=== PATIENT | female | born 1950 | race Caucasian/White ===

== ENCOUNTER 2019-03-29 09:58 | Outpatient (CLI) | payer MEDICARE, OTHER, SELFPAY ==
--- NOTE | ~2019-03-29 | US_ITS ---
EXAMINATION: US breast cyst asp LT DATE: 03/29/2019 11:22 INDICATION: Patient with a history of bilateral mastectomy with implant reconstruction in 2004 for ri ght breast cancer. Patient reports three implant surgeries with history of textured implants. Recent MRI showed fluid surrounding the left breast implant. TECHNIQUE: The procedure and its risks and benefits were discussed with the patient. Potential risks discussed included bleeding and infection. The skin was prepared and draped in sterile fashion. 1% li docaine was used for local anesthesia. Under ultrasound guidance a 19-gauge needle was guided into th e fluid surrounding the left breast implant at the 3:00 location in the 6:00 location. Fluid was aspi rated into three 10 cc syringes and a 50 cc syringe. Total volume of aspirated fluid was 70 cc. There were no immediate complications. FINDINGS: Ultrasound images demonstrate fluid around the breast implant and the needle within the fluid. IMPRESSION: 1. Successful ultrasound-guided paracentesis yielding 70 mL of brown and red fluid. Reviewed, dictated and finalized at location A. [employer] COMM[employer]IONER IMPRESSION: 1. Successful ultrasound-guided paracentesis yielding 70 mL of brown and red fl uid.
== END 2019-03-29 09:59 | disposition home or self-care (01) ==
PROVIDERS: PCP Internal Medicine; Visit Provider Surgery Plastic and Reconstructive Surgery
DX: N64.89 Other specified disorders of breast (principal)
CPT/HCPCS: 19000; 87070; 87075; 87102; 87205; 87206; 88104; 88108; 88184; 88185; 88305

== ENCOUNTER 2019-05-04 14:32 | Outpatient (CLI) | payer MEDICARE, OTHER, SELFPAY ==
--- NOTE | 2019-05-04 14:36 | ECG_ITS ---
Measurements Intervals [place] Rate: 84 P: 43 CA: 171 QRS: -34 QRSD: 138 T: 29 QT: 383 QTc: 453 Interpretive Statements SINUS RHYTHM LEFT AXIS DEVIATION RIGHT BUNDLE BRANCH BLOCK BASELINE ARTIFACT- I, II, III, AVR, AVL, AVF, V1-V6 ABNORMAL ECG Electronically Signed On 05-04-2019 15:08:34 [employer]TER by Adam Chan D.O.
== END 2019-05-04 14:33 | disposition home or self-care (01) ==
PROVIDERS: PCP Internal Medicine; Visit Provider Surgery Plastic and Reconstructive Surgery
DX: Z01.810 Encounter for preprocedural cardiovascular examination (principal); I10 Essential (primary) hypertension; R94.31 Abnormal electrocardiogram [ECG] [EKG]; Z96.652 Presence of left artificial knee joint
CPT/HCPCS: 93005

== ENCOUNTER 2019-05-15 00:59 | Day surgery (SDC) | payer MEDICARE, OTHER, SELFPAY ==
[2019-05-03 09:11] VITALS: BMI 22.3
[2019-05-15] VITALS (8 sets, daily range): BP systolic 114–143; BP diastolic 70–93; PULSE 91–110; RESP 11–19; TEMP 36.1–37.1; O2SAT 92–100
[2019-05-15] MEDS: LACTATED RINGERS 1,000 ML 30 ML IV CONT ×2 (09:30→12:45)
--- NOTE | 2019-05-15 09:36 | WPDHPUPDATE1 ---
History and Physical Update Update Date/Time: 05/15/19 09:36 History and Physical has been reviewed, including an updated exam of the patient. There are NO changes in the patient's condition. Risks, benefits, and alternatives have been discussed and questions answered. Patient agrees to proceed with procedure.
--- NOTE | 2019-05-15 09:52 | P.PNAN_ITS ---
Anes - Initial Pre Proc Eval Procedure: Operation Date: 05/15/19 13:00 Proposed Procedures p Bilateral Breast Implant Exchange With Aloderm, Bilateral Lateral Breast Revision - David Becerra MD Date/Time: 05/15/19 09:52 Surgeon: David Becerra MD Pre Op Diagnosis: Acquired Breast Deformity Patient Data Age: 69 Gender: F Height: 5 ft 4 in Weight: 58.97 kg Allergies Allergy/AdvReac Type Severity Reaction Status Date / Time No Known Allergies Allergy Verified 05/15/19 09:17 Home Medications Medication Instructions Recorded Confirmed Type gabapentin 300 mg capsule 300 mg PO TID #270 cap 03/06/19 05/15/19 Rx lisinopril 10 mg tablet 10 mg PO HS 03/07/19 05/15/19 History ospemifene [Osphena] 60 mg PO DAILY 05/03/19 05/15/19 History sertraline 50 mg PO HS 05/03/19 05/15/19 History cholecalciferol (vitamin D3) 10 mcg PO BID 05/15/19 05/15/19 History [Vitamin D3] glucosamine sulfate [Glucosamine] 500 mg PO BID 05/15/19 05/15/19 History omega 1-ilt-lwy-fish oil [Fish Oil] 1 cap PO DAILY 05/15/19 05/15/19 History vitamin M-wafqedpqxvua-fklopbb 1 tablet PO DAILY 05/15/19 05/15/19 History [Emergen-C] Patient hx anesthesia problems: none Family hx anesthesia problems: none PMFSH Social History Social History Smoking status: Never smoker Second hand tobacco smoke exposure: No Alcohol intake: current Gender identity (if verbalized by the patient): Female Anes - Eval Final PreProcedure Day of Procedure 05/15/19 09:52 Patient weight: normal Heart: regular rate and rhythm Lungs: clear to auscultation Airway: Mallampati scale class II Neurological: alert and oriented Last oral intake: >/= 8 hours ASA classification: III Emergent: no Anesthetic plan: proceed Anesthesia type and monitoring: general LMA and standard monitoring Informed Consent: The patient's anesthetic plan and its attendant risks and benefits were discussed with the patient/family/POA. Questions were solicited and answers provided to the satisfaction of the patient/family/POA.
[2019-05-15] MEDS: ceFAZolin 2 GM/D5W 50 ML 2 GM/50 ML BAG IVPB (10:13)
[2019-05-15] MEDS: LIDO 1%/EPINEPHRINE 1:100,000 20 ML VIAL 80 ML INFILTRATE (10:44)
--- NOTE | 2019-05-15 12:50 | PM.PROC ---
Procedure Note - Detailed Date of procedure: 05/15/19 Pre-op diagnosis: Acquired Breast Deformity History breast cancer Post-op diagnosis: same Procedure performed: 1. Right intact breast implant removal 2. Left breast implant material removal 3. Bilateral capsulectomy 4. Bilateral lateral breast scar revision measuring 11 cm per side (22cm total) 5. Z plasty bilateral lateral breast (4x4cm per side 16cm2) 32cm2 total Description of procedure: Preoperatively we spent extensive time discussing the risks, benefits, alternatives. I want her to be very realistic about the risks involved as well as expectations. Reviewed her goals making sure in full agreement. Answered all of her questions to her satisfaction including realistic expectations of outcome. Consent obtained. She was marked in the preoperative holding area. I explained everything we are doing at that time as well. She was taken to the operating room placed supine on operating room table. Anesthesia was provided by anesthesiology and prepped and draped in a standard fashion. Surgical time-out was taken. 1% lidocaine and 0.25% Marcaine with epinephrine was used to provide a field block. Fifteen blade used to make an incision at the previous scar excising the scar. Dissection was continued down to the capsule wall was identified and elevated removing the majority of this capsule. This was a submuscular augmentation the posterior capsule was adherent to the chest wall so this was cauterized and not removed. The right implant was intact the left implant was ruptured. The left breast had significant seroma intracapsular and I did send this to pathology around 70 cc. I then copiously irrigated with 3 L of saline on TUR tubing and verified strict hemostasis. Bilateral breast had good muscle coverage as such I did not use AlloDerm. Ten blade was used to excise the lateral chest wall tissue along the lateral breast as determined preoperatively in the dimensions as above. Fifteen Rishi drains were placed and sutured into place with 3-0 silk at the lateral/posterior aspect of the revision laterally. I then closed laterally with 2-0 Vicryl followed by 3-0 strata fix. At the lateral aspect of the breast this was going to create a band and as such I created Z-plasties bilateral breast lateral aspect. I irrigated with triple antibiotic and Betadine containing solution. Wash clothes. Induce the implant into the pocket closed using 2-0 Vicryl followed by 3-0 strata fix and the entire incision was closed using running subcuticular 4-0 Monocryl followed by tissue glue. Fluffs and a surgical bra were placed. She tolerated procedure well. Woken taken the PACU without difficulty. All instrument sponge counts were correct at the end of the case. Anesthesia: GLMA Surgeon: David Becerra MD Estimated blood loss (mL): 30 Drains: Yes (Bilateral 15 Rishi) Packing: No Pathology: yes (Bilateral breast capsular, tissue, and left breast seroma.) Complications: No immediate complications Condition: stable Disposition: PACU Findings: Implants: Right: REF# [id number] SN [id number] Left: REF# [id number] SN [id number] Left breast seroma Left breast ruptured implant
== END 2019-05-15 15:13 | disposition home or self-care (01) ==
PROVIDERS: PCP Internal Medicine; Visit Provider Surgery Plastic and Reconstructive Surgery
PROC: (CPT 19371; principal; 2019-05-15 13:00)
DX: T85.41XA Breakdown (mechanical) of breast prosthesis and implant, initial encounter (principal); N64.89 Other specified disorders of breast; Y83.8 Other surgical procedures as the cause of abnormal reaction of the patient, or of later complication, without mention of misadventure at the time of the procedure; Z85.3 Personal history of malignant neoplasm of breast; Z90.13 Acquired absence of bilateral breasts and nipples; I10 Essential (primary) hypertension; L82.1 Other seborrheic keratosis
CPT/HCPCS: 19371; 19380; 88104; 88108; 88304; 88305; A9270; J0131; J0690; J1100; J1580; J2405; J2704; J3010; J7120

== ENCOUNTER 2019-08-02 14:54 | Outpatient (CLI) | payer MEDICARE, OTHER, SELFPAY ==
--- NOTE | ~2019-08-02 | US_ITS ---
EXAMINATION: US pelvic complete w TV DATE: 08/02/2019 15:44 INDICATION: Adnexal cyst TECHNIQUE: Multiple transabdominal and endovaginal sonographic images of the pelvis were obtained. COMPARISON: None. FINDINGS: The uterus measures 8.5 x 3.4 x 3.4 cm. The endometrial complex measures is thickened and heterogene ous 19 mm with a few small internal cystic regions. The right ovary measures 6.1 x 2.4 x 3.3 cm. The left ovary measures 6.6 x 4.6 x 5.8 cm. Anechoic fluid-filled dilated serpiginous tubular structures at both the left and right adnexal regions most consistent with hydrosalpinx. There is no free fluid in the pelvis. IMPRESSION: 1. Thickened heterogeneous endometrial complex which abnormal for age and given history of bleeding r aises concern for malignancy. Recommend hysteroscopy and biopsy. 2. Bilateral hydrosalpinx. Reviewed, dictated and finalized at location A. IMPRESSION: 1. Thickened heterogeneous endometrial complex which abnormal for age and given history of bleeding raises concern for malignancy. Recommend hysteroscopy and biopsy. 2. Bilateral hydrosalpinx.
== END 2019-08-02 14:55 | disposition home or self-care (01) ==
PROVIDERS: PCP Internal Medicine; Visit Provider Obstetrics & Gynecology Gynecology
DX: N83.201 Unspecified ovarian cyst, right side (principal); N83.202 Unspecified ovarian cyst, left side; R93.89 Abnormal findings on diagnostic imaging of other specified body structures; N70.11 Chronic salpingitis
CPT/HCPCS: 76830; 76856

== ENCOUNTER 2019-08-17 00:46 | Outpatient (CLI) | payer MEDICARE, OTHER, SELFPAY ==
[2019-08-17 17:53] LABS: SARS-CoV-2 RNA PCR Negative
== END 2019-08-17 00:47 | disposition home or self-care (01) ==
LOC: ANHCOVIDDT 00:46
PROVIDERS: PCP Internal Medicine; Visit Provider Obstetrics & Gynecology Gynecology
DX: Z01.818 Encounter for other preprocedural examination (principal); Z11.59 Encounter for screening for other viral diseases
CPT/HCPCS: 87635; C9803; U0003

== ENCOUNTER 2019-08-20 02:38 | Day surgery (SDC) | payer MEDICARE, OTHER, SELFPAY ==
[2019-08-14 12:44] VITALS: BMI 22.3
--- NOTE | 2019-08-20 07:20 | P.HP_ITS ---
History of Present Illness History of Present Illness Consent: Risks, benefits, and alternatives have been discussed and questions answered. Patient agrees to proceed with procedure. Chief complaint: Postmenopausal Bleeding Narrative: Leah Sheehan is a 69 year old female with postmenopausal bleeding and thickened endometrium at 19 mm. Attempted to do office hysteroscopy but unable to enter the cavity. Patient given 5 days cytotec preop for this procedure. Risks of infection, bleeding, and perforation were discussed. Possible inability to enter cavity also reviewed. Possible pathology discussed with patient. She voices understanding and agrees to proceed. [facility] Social History Social History Smoking status: Never smoker Second hand tobacco smoke exposure: No Alcohol intake: current Gender identity (if verbalized by the patient): Female Meds Home Medications and Allergies Home Medications Medication Instructions Recorded Confirmed Type gabapentin 300 mg capsule 300 mg PO TID #270 cap 03/06/19 08/14/19 Rx lisinopril 10 mg tablet 10 mg PO HS 03/07/19 08/14/19 History Osphena 60 mg PO DAILY 05/03/19 08/14/19 History sertraline 50 mg PO HS 05/03/19 08/14/19 History cholecalciferol (vitamin D3) 10 mcg PO BID 05/15/19 08/14/19 History [Vitamin D3] glucosamine sulfate [Glucosamine] 500 mg PO BID 05/15/19 08/14/19 History omega 8-eds-yjt-fish oil [Fish Oil] 1 cap PO DAILY 05/15/19 08/14/19 History ascorbic acid (vitamin C) 1 g PO DAILY 08/14/19 08/14/19 History Allergies Allergy/AdvReac Type Severity Reaction Status Date / Time No Known Allergies Allergy Verified 08/14/19 12:41 Exam Const: General: healthy appearing and alert Orientation/consciousness: patient oriented x3 Resp: Effort & Inspection: normal respiratory effort Auscultation: clear to auscultation bilaterally Cardio: Rate: regular rate Rhythm: regular rhythm GI: GI Palp: Yes Soft to palpation, No Tenderness to palpation present (GI) and No Palpable mass present : External Female Exam: normal external appearance Speculum Exam - Vagina: normal appearance of the vagina and normal vaginal discharge Speculum Exam - Cervix: normal appearance of the cervix Bimanual exam- vagina & uterus: uterine size normal and consistency normal Bimanual Exam- Adnexa, other: normal adnexae and No adnexal tenderness Neuro: General: patient oriented x3 Assessment and Plan Assessment and plan (1) Post-menopausal bleeding: Code(s): N95.0 - Postmenopausal bleeding Status: Acute Assessment and Plan: Plan to proceed with hysteroscopy with D&C
[2019-08-20 07:53] VITALS: BP 156/90; PULSE 97; RESP 20; TEMP 37.1; O2SAT 97
--- NOTE | 2019-08-20 08:19 | P.PNAN_ITS ---
Anes - Initial Pre Proc Eval Procedure: Operation Date: 08/20/19 09:30 Proposed Procedures p Hysteroscopy, Dilation and Curettage - Lanie Espinal MD Date/Time: 08/20/19 08:19 Surgeon: Lanie Espinal MD Pre Op Diagnosis: Postmenopausal Bleeding Patient Data Age: 69 Gender: F Height: 1.63 m Weight: 58.97 kg Last Vital Signs Temp 37.1 C 08/20/19 07:53 Pulse 97 08/20/19 07:53 Resp 20 08/20/19 07:53 BP 156/90 H 08/20/19 07:53 Pulse Ox 97 08/20/19 07:53 Allergies Allergy/AdvReac Type Severity Reaction Status Date / Time No Known Allergies Allergy Verified 08/20/19 07:40 Home Medications Medication Instructions Recorded Confirmed Type gabapentin 300 mg capsule 300 mg PO TID #270 cap 03/06/19 08/14/19 Rx lisinopril 10 mg tablet 10 mg PO HS 03/07/19 08/14/19 History Osphena 60 mg PO DAILY 05/03/19 08/14/19 History sertraline 50 mg PO HS 05/03/19 08/14/19 History cholecalciferol (vitamin D3) 10 mcg PO BID 05/15/19 08/14/19 History [Vitamin D3] glucosamine sulfate [Glucosamine] 500 mg PO BID 05/15/19 08/14/19 History omega 9-vjx-elr-fish oil [Fish Oil] 1 cap PO DAILY 05/15/19 08/14/19 History ascorbic acid (vitamin C) 1 g PO DAILY 08/14/19 08/14/19 History Patient hx anesthesia problems: none Family hx anesthesia problems: none [facility] Social History Social History Smoking status: Never smoker Second hand tobacco smoke exposure: No Alcohol intake: current Gender identity (if verbalized by the patient): Female Anes - Eval Final PreProcedure Day of Procedure 08/20/19 08:19 Patient weight: normal Heart: regular rate and rhythm Lungs: clear to auscultation and normal air movement Airway: Mallampati scale class II Neurological: alert and oriented Last oral intake: >/= 8 hours ASA classification: III Emergent: no Anesthetic plan: proceed Anesthesia type and monitoring: general GIVS Informed Consent: The patient's anesthetic plan and its attendant risks and b enefits were discussed with the patient/family/POA. Questions were solicited and answers provided to the satisfaction of the patient/family/POA.
[2019-08-20] MEDS: LACTATED RINGERS 1,000 ML 30 ML IV CONT (08:27)
--- NOTE | 2019-08-20 08:28 | SUR.PREOP ---
family update provided
--- NOTE | 2019-08-20 09:03 | PM.OP ---
Procedure Note - Brief Procedure Note - Brief Date of procedure: 08/20/19 Pre-op diagnosis: Postmenopausal Bleeding Post-op diagnosis: same Procedure performed: D&C hysteroscopy with myosure resection of large polyp Anesthesia: MAC and local Surgeon: Lanie Espinal MD Estimated blood loss (mL): 5 Drains: No Packing: No Pathology: yes (endometrial curettings and shavings) Complications: No immediate complications Condition: stable Disposition: PACU Findings: Uterus sounds to 8 cm; very large polyp with base at right fundus and coming into the cervical canal; remainder of endometrium appears atrophic
[2019-08-20 09:04] VITALS: BP 118/80; PULSE 96; RESP 20; O2SAT 99
[2019-08-20 09:34] VITALS: BP 138/85; PULSE 90; RESP 20
[2019-08-20 10:00] VITALS: BP 135/79; PULSE 92; RESP 20
--- NOTE | 2019-08-20 12:44 | OP_ITS ---
DATE OF PROCEDURE: 08/20/2019 PREOPERATIVE DIAGNOSIS: Postmenopausal bleeding with thickened endometrial lining. POSTOPERATIVE DIAGNOSIS: Postmenopausal bleeding with thickened endometrial lining. PROCEDURE: D and C, hysteroscopy with MyoSure resection of endometrial polyp. ESTIMATED BLOOD LOSS: 5 cc. PATHOLOGY: Endometrial shavings and curettings. DESCRIPTION OF PROCEDURE: The patient was taken to the operating room, placed under anesthesia in the dorsal lithotomy position. She was prepped and draped in the usual sterile fashion. Bivalved speculum was placed in the vagina. Cervix was grasped on the anterior lip with a tenaculum and injected with 1% lidocaine. The os Finders were used to enter the endometrial cavity. The cervix was then serially dilated with Hegar. The uterus was sounded to 8 cm. The diagnostic hysteroscope was placed. The polyp was noted to be attached at the left fundus and is very large coming down into the mid portion of the cervix and filling the majority of the cavity. The mesher device was opened and placed. Under direct visualization, the polyp was removed in its entirety. The remainder of the endometrium appears grossly atrophic. The hysteroscope was removed. The medium sharp curette was used to sharply curette the endometrium until a good uterine cry was noted in all areas. Minimal material was obtained, consistent with the atrophic appearance. All instruments were removed. The patient was awakened from anesthesia and taken to Recovery in stable condition. Lambert I MT: Cally
== END 2019-08-20 10:05 | disposition home or self-care (01) ==
PROVIDERS: PCP Internal Medicine; Visit Provider Obstetrics & Gynecology Gynecology
PROC: 0U5B8ZZ Destruction of Endometrium, Via Natural or Artificial Opening Endoscopic (ICD-10-PCS; CPT 58563; principal; 2019-08-20 09:30)
DX: N95.0 Postmenopausal bleeding (principal); N84.0 Polyp of corpus uteri
CPT/HCPCS: 58558; 88305; A9270; J0131; J1100; J2250; J2405; J2704; J3010; J7030; J7120

== ENCOUNTER 2019-11-22 09:24 | Outpatient (CLI) | payer MEDICARE, OTHER, SELFPAY ==
[2019-11-22 09:48] LABS: Basophils Percent Auto 0.7 % (0.2-1.2); Eosinophils Absolute Auto 0.2 K/mm3 (0-0.3); Hematocrit 41.8 % (37.0-47.0); Hemoglobin 13.7 g/dL (12.0-15.0); Immature Granulocyte Absolute 0.01 K/mm3 (0.00-0.031); Immature Granulocyte Percent A 0.2 % (0-0.5); Lymphocytes Absolute Auto 2.68 K/mm3 (0.9-3.2); Lymphocytes Percent Auto 45.3 % (18.3-44.2); Mean Corpuscular HGB Conc 32.8 g/dl (32-36); Mean Corpuscular Hemoglobin 33.1 pg (26-34); Mean Platelet Volume 8.9 fl (7.4-10.4); Monocytes Absolute Auto 0.6 K/mm3 (0.1-0.6); Monocytes Percent Auto 9.5 % (2.6-8.5); Neutrophils Absolute Auto 2.5 K/mm3 (1.3-6.7); Neutrophils Percent Auto 41.3 % (45.5-73.1); Platelet Count Result 257 k/mm3 (150-375); Red Blood Count 4.14 M/mm3 (4.2-5.4); Red Cell Distribution Width 13.3 % (11.5-14.5); White Blood Count 5.9 K/mm3 (4.5-10.0)
[2019-11-22 10:11] LABS: LDL Cholesterol Direct 93 mg/dL
[2019-11-22 10:22] LABS: Alanine Aminotransferase 60 U/L (4-35); Albumin Level 4.2 g/dL (3.5-5.1); Alkaline Phosphatase 95 U/L (38-126); Anion Gap 7 mmol/L (8-16); Aspartate Amino Transferase 76 U/L (14-36); Bilirubin,Total 0.6 mg/dL (0.2-1.3); Blood Urea Nitrogen 14 mg/dL (7-17); Calcium 9.9 mg/dL (8.4-10.2); Carbon Dioxide 29 mmol/L (22-30); Chloride 99 mmol/L (98-107); Cholesterol 223 mg/dL (0-200); Estimated Glomerular Filt Rate > 60; Glucose 100 mg/dL (65-105); HDL Direct 110 mg/dL; Potassium 4.5 mmol/L (3.4-5.0); Sodium 135 mmol/L (137-145); Triglycerides 102 mg/dL (<150)
[2019-11-22 11:07] LABS: Vitamin D 25 Hydroxy 30.5 ng/mL
== END 2019-11-22 09:25 | disposition home or self-care (01) ==
LOC: ANHLAB 09:28
PROVIDERS: PCP Internal Medicine; Visit Provider Nurse Practitioner
DX: E78.5 Hyperlipidemia, unspecified (principal); I10 Essential (primary) hypertension; E55.9 Vitamin D deficiency, unspecified
CPT/HCPCS: 36415; 80053; 80061; 82306; 85025

== ENCOUNTER 2019-12-14 08:22 | Outpatient (CLI) | payer MEDICARE, OTHER, SELFPAY ==
[2019-12-14 08:50] LABS: Alanine Aminotransferase 50 U/L (4-35); Aspartate Amino Transferase 60 U/L (14-36)
== END 2019-12-14 08:23 | disposition home or self-care (01) ==
PROVIDERS: PCP Internal Medicine; Visit Provider Nurse Practitioner
DX: R74.8 Abnormal levels of other serum enzymes (principal)
CPT/HCPCS: 36415; 84450; 84460

== ENCOUNTER 2019-12-20 09:40 | Outpatient (CLI) | payer MEDICARE, OTHER, SELFPAY ==
--- NOTE | ~2019-12-20 | US_ITS ---
EXAMINATION: US right upper quadrant DATE: 12/20/2019 10:58 INDICATION: Abnormal levels of other serum enzymes. TECHNIQUE: Multiple grayscale and Doppler ultrasound images of the abdomen were obtained. COMPARISON: None FINDINGS: The visualized portions of the head, body, and tail the pancreas are normal. The liver is n ormal without focal lesion. No liver surface nodularity. There is normal flow in main portal vein. Th e gallbladder is normal in size. No gallstones or gallbladder wall thickening. There was no sonograph ic Nair sign. The common duct is normal and measures 7 mm. IMPRESSION: 1. Normal right upper quadrant ultrasound. Reviewed, dictated and finalized at location A.
== END 2019-12-20 09:41 | disposition home or self-care (01) ==
PROVIDERS: PCP Internal Medicine; Visit Provider Nurse Practitioner
DX: R74.8 Abnormal levels of other serum enzymes (principal)
CPT/HCPCS: 76705

== ENCOUNTER 2019-12-27 09:35 | Outpatient (CLI) | payer MEDICARE, OTHER, SELFPAY ==
[2019-12-27 10:48] LABS: Iron 96 ug/dL (37-170)
[2019-12-27 10:50] LABS: Thyroid Stimulating Hormone 0.709 uIU/mL (0.465-4.680)
[2019-12-27 10:58] LABS: Percent Iron Saturation 22 % (20-50)
[2019-12-27 10:59] LABS: HIV 1/2 Ab P24 Ag Result Negative (Negative)
[2019-12-27 11:20] LABS: Hepatitis B Surface Antigen Negative (Negative)
[2019-12-27 11:38] LABS: Hepatitis C Virus Antibody Negative (Negative)
[2020-01-02 13:22] LABS: Gliadin AB, IgG 3 Units (<20); Reticulin IgA Negative (Negative); TTG IGA AB 1 U/mL (<4)
== END 2019-12-27 09:36 | disposition home or self-care (01) ==
PROVIDERS: PCP Internal Medicine; Visit Provider Nurse Practitioner
DX: R74.8 Abnormal levels of other serum enzymes (principal); I10 Essential (primary) hypertension
CPT/HCPCS: 36415; 83516; 83540; 83550; 84443; 86255; 86703; 86803; 87340; G0432

== ENCOUNTER 2022-02-05 15:25 | Outpatient (CLI) | payer MEDICARE, OTHER, SELFPAY ==
[2022-02-05 19:03] LABS: Alanine Aminotransferase 27 U/L (6-35); Albumin Level 4.3 g/dL (3.5-5.1); Alkaline Phosphatase 68 U/L (38-126); Anion Gap 5 mmol/L (8-16); Aspartate Amino Transferase 47 U/L (14-36); Bilirubin,Total 0.5 mg/dL (0.2-1.3); Blood Urea Nitrogen 14 mg/dL (7-17); Calcium 9.9 mg/dL (8.4-10.2); Carbon Dioxide 32 mmol/L (22-30); Chloride 95 mmol/L (98-107); Cholesterol 243 mg/dL (0-200); Estimated Glomerular Filt Rate > 60; Glucose 90 mg/dL (65-110); HDL Direct 88 mg/dL; Potassium 4.1 mmol/L (3.4-5.0); Sodium 132 mmol/L (137-145); Triglycerides 107 mg/dL (<150)
[2022-02-05 19:11] LABS: Basophils Percent Auto 0.3 % (0.2-1.2); Eosinophils Absolute Auto 0.1 K/mm3 (0-0.3); Eosinophils Percent Auto 1.6 % (0-4.4); Hematocrit 41.2 % (37.0-47.0); Hemoglobin 13.5 g/dL (12.0-15.0); Immature Granulocyte Absolute 0.01 K/mm3 (0.00-0.031); Immature Granulocyte Percent A 0.1 % (0-0.5); Lymphocytes Absolute Auto 3.65 K/mm3 (0.9-3.2); Lymphocytes Percent Auto 49.7 % (18.3-44.2); Mean Corpuscular HGB Conc 32.8 g/dl (32-36); Mean Corpuscular Hemoglobin 31.6 pg (26-34); Mean Corpuscular Volume 96.5 fl (80-100); Mean Platelet Volume 8.9 fl (7.4-10.4); Monocytes Absolute Auto 0.6 K/mm3 (0.1-0.6); Neutrophils Percent Auto 40.3 % (45.5-73.1); Platelet Count Result 425 k/mm3 (150-375); Red Blood Count 4.27 M/mm3 (4.2-5.4); Red Cell Distribution Width 12.4 % (11.5-14.5); White Blood Count 7.3 K/mm3 (4.5-10.0)
[2022-02-05 19:14] LABS: LDL Cholesterol Direct 108 mg/dL
[2022-02-05 19:25] LABS: Vitamin D 25 Hydroxy 38.7 ng/mL
== END 2022-02-05 15:26 | disposition home or self-care (01) ==
PROVIDERS: PCP Internal Medicine; Visit Provider Clinical Nurse Specialist
DX: N95.0 Postmenopausal bleeding (principal); Z13.228 Encounter for screening for other metabolic disorders; E55.9 Vitamin D deficiency, unspecified; I10 Essential (primary) hypertension; E78.2 Mixed hyperlipidemia
CPT/HCPCS: 36415; 80053; 80061; 82306; 84443; 85025

== ENCOUNTER 2022-04-06 14:05 | Outpatient (CLI) | payer MEDICARE, OTHER, SELFPAY ==
--- NOTE | ~2022-04-06 | DEXA_ITS ---
Bone Density Report Name: EBONY HOLLAND Age: 71 Sex: Female Ethnicity: White Date of : 1950 Indication: postmenopausal; screening for osteoporosis; height loss; prior fracture; cancer; Referring Provider: YONATHAN WOODWARD Study: Bone densitometry was performed. Exam Date: April 06, 2022 Accession number: [id number] Bone Density: Region BMD T-score Z-score Classification AP Spine(L1, L2, L3) 1.128 1.0 3.2 Normal Femoral Neck (Left) 0.563 -2.6 -0.6 Osteoporosis Total Hip (Left) 0.776 -1.4 0.3 Osteopenia World Health Organization criteria for BMD impression classify patients as: Normal (T-score at or above -1.0), Osteopenia (T-score between -1.0 and -2.5), or Osteoporosis (T-score at or below -2.5). 10-year Fracture Risk: FRAX not reported because: Some T-score for Spine Total or Hip Total or Femoral Neck at or below -2.5 Prior hip or vertebral fracture Treated for osteoporosis Clinical Information Provided by Patient: Have had a previous hip or vertebral fracture Has had a low trauma fracture Is being treated for osteoporosis Has used the following medications: Prolia (i.e. denosumab), Vitamin D, Calcium Has the following medical conditions: Cancer Patient maximum height was 65.5 Menopause Age: 44 Onset of menses at age 14 Number of children 0 Impression: The patient has established osteoporosis, based on the Left Femoral Neck T-score and the existence of a prior fracture. The patient has risk factors, including: previous fracture. Discussion: It is important to ask patients whether they are taking their medications and to encourage continued and appropriate compliance with their osteoporosis therapies to reduce fracture risk. It is also important to review their risk factors and encourage appropriate calcium and vitamin D intakes, exercise, fall prevention and other lifestyle measures. Follow-Up: Consider a repeat BMD and Vertebral Fracture Assessment (VFA) exam in 2 years or sooner if medically necessary, to reassess this patient's status. Reported by: MAURICIO on 04/06/2022 2:51:00 PM. Reviewed, dictated and finalized at location A. GUERITA
== END 2022-04-06 14:06 | disposition home or self-care (01) ==
PROVIDERS: PCP Internal Medicine; Visit Provider Obstetrics & Gynecology Gynecology
DX: Z78.0 Asymptomatic menopausal state (principal); M81.0 Age-related osteoporosis without current pathological fracture; M85.852 Other specified disorders of bone density and structure, left thigh
CPT/HCPCS: 77080

== ENCOUNTER 2022-04-28 00:32 | Day surgery (SDC) | payer MEDICARE, OTHER, SELFPAY ==
[2022-03-02 14:48] VITALS: BMI 21.5
--- NOTE | 2022-03-12 14:12 | PC.NURSE ---
Spoke with patient and confirmed new date and time of procedure. Patient stated there has been no change in medical history or change in medications.
[2022-03-31 15:04] VITALS: BMI 21.5
--- NOTE | 2022-03-31 15:07 | PC.NURSE ---
Patient confirms no changes since last PAT call.
--- NOTE | 2022-04-27 17:07 | PM.HPGS ---
History of Present Illness History of Present Illness Consent: Risks, benefits, and alternatives have been discussed and questions answered. Patient agrees to proceed with procedure. Chief complaint: colitis Narrative: Leah Sheehan is a 71 year old female referred for investigation of a change in bowel habits. For the past year to she has had spells where she has a loose bowel movement every time she eats. His got to the point where she has to make sure bathroom is near when she is bleeding. She has been taking a probiotic and this has improved recently. Review of Systems Review of Systems: All systems reviewed & are unremarkable except as noted in HPI and below PMFSH Past Medical History Medical History Acquired breast deformity Allergies Blepharitis of both eyes Breast cancer Breast implant rupture Chest wall pain Depression History of breast cancer History of fracture Hyperlipidemia Hypertension Numbness in both legs Osteoarthritis Osteoporosis Raynauds syndrome Sexual dysfunction Shingles Surgical History Surgical History History of arthroplasty of left knee History of bilateral mastectomy History of bunionectomy History of left knee replacement History of right hip replacement Status post right foot surgery Family History Family History Sibling Depression Hypertension Patient's sister is in good health Patient's brother is in good health Family history of allergic disorder Family history of alcoholism Family history of malignant neoplasm of breast in first degree relative Patient's sister is Mother Asthma Patient's mother is in good health Family history of allergic disorder Father Cerebrovascular accident Grandparent Family history of malignant neoplasm of male breast Other Family history of arthritis Family history of malignant neoplasm Social History Social History Smoking status: Never smoker Second hand tobacco smoke exposure: No Alcohol intake: current Alcohol use details: occasional Substance use: never Substance use type: does not use Lack of Food: Never True Current Housing: I Have Housing Concerned About Future Housing: No Difficulty Paying Gas/Electric Bills: No Difficulty Paying for Meds: No Currently Unemployed: No Education: Bachelor's Degree Difficulty w/ Childcare or Family Care: No Living arrangements: with family Gender identity (if verbalized by the patient): Female Spiritual care concerns: No Meds Home Medications and Allergies Home Medications Medication Instructions Recorded Confirmed Type ospemifene 60 mg tablet (Osphena) 60 mg PO DAILY 05/03/19 04/12/22 History vitamin E 200 unit capsule 200 unit PO DAILY 11/29/19 04/12/22 History lisinopril 10 mg tablet 10 mg PO HS #90 tabs 04/07/21 04/12/22 Rx sertraline 50 mg tablet 50 mg PO HS #90 tabs 04/07/21 04/12/22 Rx cholecalciferol (vitamin D3) 125 125 mcg PO DAILY 02/11/22 04/12/22 History mcg (5,000 unit) capsule Adult Probiotic 1 tab-cap PO DAILY 03/02/22 04/12/22 History calcium carb-D3-mag ox-zinc ox 1 tab-cap PO DAILY 03/02/22 04/12/22 History denosumab 60 mg/mL subcutaneous 60 mg subcut [id number] 03/02/22 04/12/22 History syringe (Prolia) gabapentin 300 mg capsule 300 mg PO TID 03/02/22 04/12/22 History magnesium oxide 500 mg tablet 500 mg PO DAILY 03/02/22 04/12/22 History potassium 99 mg tablet 99 mg PO DAILY 03/02/22 04/12/22 History Allergies Allergy/AdvReac Type Severity Reaction Status Date / Time poison hayes extract Allergy Rash Verified 04/12/22 11:53 Sulfa (Sulfonamide Allergy Unknown Verified 04/12/22 11:53 Antibiotics) Exam Const: General: alert Orientation/consciousness: patient oriented x3 Resp:
[2022-04-28 08:55] VITALS: BP 138/88; PULSE 70; RESP 18; TEMP 36.6; O2SAT 100; BMI 21.9
[2022-04-28] MEDS: LACTATED RINGERS 1,000 ML 150 ML IV CONT (09:16)
--- NOTE | 2022-04-28 09:19 | WPDANESEPPF ---
Anes - Initial Pre Proc Eval Procedure: Operation Date: 04/28/22 10:15 Proposed Procedures p Colonoscopy - Pola Graves MD Date/Time: 04/28/22 09:19 Surgeon: Pola Graves MD Pre Op Diagnosis: colitis Patient Data Age: 71 Gender: F Height: 1.63 m Weight: 57.9 kg Last Vital Signs Temp 97.8 F 04/28/22 08:55 Pulse 70 04/28/22 08:55 Resp 18 04/28/22 08:55 BP 138/88 04/28/22 08:55 Pulse Ox 100 04/28/22 08:55 O2 Del Method Room Air 04/28/22 08:55 Allergies Allergy/AdvReac Type Severity Reaction Status Date / Time poison hayes extract Allergy Rash Verified 04/12/22 11:53 Sulfa (Sulfonamide Allergy Unknown Verified 04/12/22 11:53 Antibiotics) Home Medications Medication Instructions Recorded Confirmed Type ospemifene 60 mg tablet (Osphena) 60 mg PO DAILY 05/03/19 04/12/22 History vitamin E 200 unit capsule 200 unit PO DAILY 11/29/19 04/12/22 History lisinopril 10 mg tablet 10 mg PO HS #90 tabs 04/07/21 04/12/22 Rx sertraline 50 mg tablet 50 mg PO HS #90 tabs 04/07/21 04/12/22 Rx cholecalciferol (vitamin D3) 125 125 mcg PO DAILY 02/11/22 04/12/22 History mcg (5,000 unit) capsule Adult Probiotic 1 tab-cap PO DAILY 03/02/22 04/12/22 History calcium carb-D3-mag ox-zinc ox 1 tab-cap PO DAILY 03/02/22 04/12/22 History denosumab 60 mg/mL subcutaneous 60 mg subcut [id number] 03/02/22 04/12/22 History syringe (Prolia) gabapentin 300 mg capsule 300 mg PO TID 03/02/22 04/12/22 History magnesium oxide 500 mg tablet 500 mg PO DAILY 03/02/22 04/12/22 History potassium 99 mg tablet 99 mg PO DAILY 03/02/22 04/12/22 History Patient hx anesthesia problems: none Family hx anesthesia problems: none Results Review: All pre-operative results and documents have been reviewed as part of the pre-operative evaluation. PMFSH Past Medical History Medical History Acquired breast deformity Allergies Blepharitis of both eyes Breast cancer Breast implant rupture Chest wall pain Depression History of breast cancer History of fracture Hyperlipidemia Hypertension Numbness in both legs Osteoarthritis Osteoporosis Raynauds syndrome Sexual dysfunction Shingles Surgical History Surgical History History of arthroplasty of left knee History of bilateral mastectomy History of bunionectomy History of left knee replacement History of right hip replacement Status post right foot surgery Family History Family History Sibling Depression Hypertension Patient's sister is in good health Patient's brother is in good health Family history of allergic disorder Family history of alcoholism Family history of malignant neoplasm of breast in first degree relative Patient's sister is Mother Asthma Patient's mother is in good health Family history of allergic disorder Father Cerebrovascular accident Grandparent Family history of malignant neoplasm of male breast Other Family history of arthritis Family history of malignant neoplasm Social History Social History Smoking status: Never smoker Second hand tobacco smoke exposure: No Alcohol intake: current Alcohol use details: occasional Substance use: never Substance use type: does not use Lack of Food: Never True Current Housing: I Have Housing Concerned About Future Housing: No Difficulty Paying Gas/Electric Bills: No Difficulty Paying for Meds: No Currently Unemployed: No Education: Bachelor's Degree Difficulty w/ Childcare or Family Care: No Living arrangements: with family Gender identity (if verbalized by the patient): Female Spiritual care concerns: No Anes - Eval Final PreProcedure Day of Procedure 04/28/22 09:19 Patient weight: normal Heart: regular rate a
[2022-04-28] MEDS: SIMETHICONE ORAL SUSPENSION 20 MG/0.3 ML 30 ML BOTTLE 0.6 ML IRRIGATION (09:47)
[2022-04-28 09:53] VITALS: BP 132/76; PULSE 79; RESP 11; O2SAT 100
[2022-04-28 10:03] VITALS: BP 127/87; PULSE 79; RESP 22; O2SAT 100
[2022-04-28 10:13] VITALS: BP 167/105; PULSE 69; RESP 19; O2SAT 100
--- NOTE | 2022-04-28 10:19 | SUR.PHASEII ---
Spoke with Dr. Finney about the patient's blood pressure. Last blood pressure was 167/105. The patient did not take blood pressure medications before procedure. Dr. Finney okay with patient being discharged and taking blood pressure medications at home.
== END 2022-04-28 10:29 | disposition home or self-care (01) ==
PROVIDERS: PCP Internal Medicine; Visit Provider Internal Medicine Gastroenterology
PROC: 0DJD8ZZ Inspection of Lower Intestinal Tract, Via Natural or Artificial Opening Endoscopic (ICD-10-PCS; CPT 45378; principal; 2022-04-28 10:15)
DX: R19.7 Diarrhea, unspecified (principal); K57.30 Diverticulosis of large intestine without perforation or abscess without bleeding; I10 Essential (primary) hypertension; E78.5 Hyperlipidemia, unspecified; F32.A Depression, unspecified; I73.00 Raynaud's syndrome without gangrene; M81.0 Age-related osteoporosis without current pathological fracture; Z85.3 Personal history of malignant neoplasm of breast
CPT/HCPCS: 45380; 88305; J2704; J7120

== ENCOUNTER 2023-02-02 13:53 | Outpatient (CLI) | payer MEDICARE, OTHER, SELFPAY ==
[2023-02-02 19:09] LABS: Basophils Absolute Auto 0.1 K/mm3 (0.0-0.1); Basophils Percent Auto 0.6 % (0.2-1.2); Eosinophils Absolute Auto 0.2 K/mm3 (0-0.3); Eosinophils Percent Auto 2.2 % (0-4.4); Hematocrit 43.3 % (37.0-47.0); Hemoglobin 14.2 g/dL (12.0-15.0); Immature Granulocyte Absolute 0.02 K/mm3 (0.00-0.031); Immature Granulocyte Percent A 0.2 % (0-0.5); Lymphocytes Absolute Auto 3.87 K/mm3 (0.9-3.2); Lymphocytes Percent Auto 46.9 % (18.3-44.2); Mean Corpuscular HGB Conc 32.8 g/dl (32-36); Mean Corpuscular Hemoglobin 32.2 pg (26-34); Mean Corpuscular Volume 98.2 fl (80-100); Mean Platelet Volume 9.4 fl (7.4-10.4); Monocytes Absolute Auto 0.7 K/mm3 (0.1-0.6); Monocytes Percent Auto 8.4 % (2.6-8.5); Neutrophils Absolute Auto 3.4 K/mm3 (1.3-6.7); Neutrophils Percent Auto 41.7 % (45.5-73.1); Platelet Count Result 362 k/mm3 (150-375); Red Blood Count 4.41 M/mm3 (4.2-5.4); Red Cell Distribution Width 12.5 % (11.5-14.5); White Blood Count 8.3 K/mm3 (4.5-10.0)
[2023-02-02 19:28] LABS: Alanine Aminotransferase 26 U/L (6-35); Albumin Level 4.3 g/dL (3.5-5.1); Alkaline Phosphatase 74 U/L (38-126); Anion Gap 10 mmol/L (8-16); Aspartate Amino Transferase 47 U/L (14-36); Bilirubin,Total 0.8 mg/dL (0.2-1.3); Blood Urea Nitrogen 14 mg/dL (7-17); Calcium 10.4 mg/dL (8.4-10.2); Carbon Dioxide 28 mmol/L (22-30); Chloride 97 mmol/L (98-107); Cholesterol 238 mg/dL (0-200); Estimated Glomerular Filt Rate > 60; Glucose 86 mg/dL (65-110); HDL Direct 83 mg/dL; Sodium 135 mmol/L (137-145); Triglycerides 87 mg/dL (<150)
[2023-02-02 19:43] LABS: LDL Cholesterol Direct 116 mg/dL
[2023-02-02 20:13] LABS: Vitamin D 25 Hydroxy 26.2 ng/mL
== END 2023-02-02 13:54 | disposition home or self-care (01) ==
PROVIDERS: PCP Internal Medicine; Visit Provider Nurse Practitioner
DX: E55.9 Vitamin D deficiency, unspecified (principal); E78.2 Mixed hyperlipidemia; Z13.228 Encounter for screening for other metabolic disorders
CPT/HCPCS: 36415; 80053; 80061; 82306; 85025

== ENCOUNTER 2023-07-13 19:10 | Inpatient (IN) | payer MEDICARE, OTHER, SELFPAY ==
--- NOTE | ~2023-07-13 | XR_ITS ---
EXAMINATION: XR chest 1V DATE: 07/13/2023 19:47 INDICATION: Fall. Weakness. TECHNIQUE: A single frontal view of the chest was obtained. COMPARISON: Chest single view 08/26/2015 FINDINGS: There is no pneumonia, pleural effusion, or pneumothorax. The heart size is normal. Breast implants are noted. There is an old healed fracture of proximal left humerus. There is an old healed fracture of left clavicle. IMPRESSION: 1. No acute cardiopulmonary disease. Reviewed, dictated and finalized at location E.
--- NOTE | ~2023-07-13 | XR_ITS ---
EXAMINATION: XR surgery orthopedic DATE: 07/14/2023 16:04 INDICATION: Left hip intertrochanteric nailing TECHNIQUE: 4 fluoroscopic images of the proximal left femur were obtained during procedure performed by Dr. Blakely. Radiologist was not present for the imaging or procedure. The amount of fluoroscop y time used during this procedure was 0.8 minutes. COMPARISON: 07/13/2023 FINDINGS: Interval open reduction internal fixation of the previously seen comminuted intratrochanteric fractur e of the proximal left femur. The fracture is fixed with an antegrade intramedullary rose and femoral neck dynamic compression screw fixation. Mild residual distraction of the lesser trochanteric fragmen t which is not included within the fixation. Near-anatomic alignment of the main proximal and distal fragments. No new fractures identified. Mild left hip osteoarthritis. IMPRESSION: 1. Internal fixation of a comminuted intratrochanteric fracture of the proximal left femur, negative for postoperative purposes in near-anatomic alignment. Reviewed, dictated and finalized at location A.
--- NOTE | ~2023-07-13 | XR_ITS ---
EXAMINATION: XR hip LT 2V w AP pelvis DATE: 07/13/2023 19:47 INDICATION: Left hip pain. Fall. TECHNIQUE: An anteroposterior view of the pelvis and 2 views of left hip were obtained. COMPARISON: Pelvis radiograph 01/29/2015 FINDINGS: There is a comminuted intertrochanteric fracture of proximal femur. The main distal fractur e fragment demonstrates impaction. There is mild left hip osteoarthritis. There is a total right hip arthroplasty in near-anatomic alignment. There is moderate lumbar spondylosis. IMPRESSION: 1. Intertrochanteric fracture of proximal left femur. 2. Mild left hip osteoarthritis. 3. Total right hip arthroplasty in near-anatomic alignment. Reviewed, dictated and finalized at location E.
[2023-07-13 19:11] VITALS: BP 160/96; PULSE 93; RESP 16; TEMP 36.6; O2SAT 100
[2023-07-13] MEDS: SODIUM CHLORIDE 0.9% IV 1,000 ML 999 ML IV CONT (19:33)
[2023-07-13 19:45] LABS: Basophils Percent Auto 0.3 % (0.2-1.2); Eosinophils Absolute Auto 0.1 K/mm3 (0-0.3); Eosinophils Percent Auto 0.4 % (0-4.4); Hematocrit 36.6 % (37.0-47.0); Hemoglobin 12.2 g/dL (12.0-15.0); Immature Granulocyte Absolute 0.04 K/mm3 (0.00-0.031); Immature Granulocyte Percent A 0.3 % (0-0.5); Lymphocytes Absolute Auto 1.93 K/mm3 (0.9-3.2); Lymphocytes Percent Auto 15.7 % (18.3-44.2); Mean Corpuscular HGB Conc 33.3 g/dl (32-36); Mean Corpuscular Hemoglobin 31.8 pg (26-34); Mean Corpuscular Volume 95.3 fl (80-100); Monocytes Absolute Auto 0.7 K/mm3 (0.1-0.6); Monocytes Percent Auto 5.9 % (2.6-8.5); Neutrophils Absolute Auto 9.5 K/mm3 (1.3-6.7); Neutrophils Percent Auto 77.4 % (45.5-73.1); Platelet Count Result 224 k/mm3 (150-375); Red Blood Count 3.84 M/mm3 (4.2-5.4); Red Cell Distribution Width 12.7 % (11.5-14.5); White Blood Count 12.3 K/mm3 (4.5-10.0)
[2023-07-13 19:54] LABS: Alanine Aminotransferase 22 U/L (6-35); Albumin Level 3.9 g/dL (3.5-5.1); Alkaline Phosphatase 82 U/L (38-126); Anion Gap 7 mmol/L (4-12); Aspartate Amino Transferase 35 U/L (14-36); Bilirubin,Total 0.6 mg/dL (0.2-1.3); Blood Urea Nitrogen 16 mg/dL (7-17); Carbon Dioxide 25 mmol/L (22-30); Chloride 101 mmol/L (98-107); Estimated CRCL calculation 74 ml/min; Estimated Glomerular Filt Rate > 60; Glucose 111 mg/dL (65-110); Potassium 3.4 mmol/L (3.4-5.0); Prothrombin Time 13.5 Seconds (11.1-14.7); Sodium 133 mmol/L (137-145)
[2023-07-13 19:55] LABS: Partial Thromboplastin Time 27.4 Seconds (22.3-36.8)
--- NOTE | 2023-07-13 19:55 | ED.GENADULT ---
HPI - General Adult General Chief complaint: Extremity Injury, Lower Stated complaint: fall, hip pain Time Seen by Provider: 07/13/23 19:21 History of Present Illness HPI narrative: Patient 73-year-old female who presents emergency department chief complaint of left hip pain. Patient reports she was carrying some things out of her house tripped fell and landed on her left hip the patient reports no loss of consciousness reports that she did bump her head but reports that she has no headache denies neck pain denies any focal deficits. The patient reports that she has pain in the left hip worse with movement reports that feels just like whenever she broke her hip on the right side the patient denies numbness or tingling distal to the injury reports that her pain is controlled whenever she is laying on the stretcher Related Data Home Medications Medication Instructions Recorded Confirmed ospemifene 60 mg tablet (Osphena) 60 mg PO DAILY 05/03/19 02/14/23 vitamin E 200 unit capsule 200 unit PO DAILY 11/29/19 02/14/23 cholecalciferol (vitamin D3) 125 125 mcg PO DAILY 02/11/22 02/14/23 mcg (5,000 unit) capsule Adult Probiotic 1 tab-cap PO DAILY 03/02/22 02/14/23 calcium carb-D3-mag ox-zinc ox 1 tab-cap PO DAILY 03/02/22 02/14/23 magnesium oxide 500 mg PO DAILY 03/02/22 02/14/23 potassium 99 mg tablet 99 mg PO DAILY 03/02/22 02/14/23 Allergies Allergy/AdvReac Type Severity Reaction Status Date / Time poison hayes extract Allergy Rash Verified 02/14/23 10:04 Sulfa (Sulfonamide Allergy Unknown Verified 02/14/23 10:04 Antibiotics) Review of Systems Review of Systems: A 10 system review of systems was completed on the patient and is negative except for what is stated in the HPI. Nursing and ancillary documentation was reviewed. [facility] Past Medical History Medical History Acquired breast deformity Allergies Blepharitis of both eyes Breast cancer Breast implant rupture Chest wall pain Depression History of breast cancer History of fracture Hyperlipidemia Hypertension Numbness in both legs Osteoarthritis Osteoporosis Raynauds syndrome Sexual dysfunction Shingles Surgical History Surgical History History of arthroplasty of left knee History of bilateral mastectomy History of bunionectomy History of left knee replacement History of right hip replacement Status post right foot surgery Family History Family History Sibling Depression Hypertension Patient's sister is in good health Patient's brother is in good health Family history of allergic disorder Family history of alcoholism Family history of malignant neoplasm of breast in first degree relative Patient's sister is Mother Asthma Patient's mother is in good health Family history of allergic disorder Father Cerebrovascular accident Grandparent Family history of malignant neoplasm of male breast Other Family history of arthritis Family history of malignant neoplasm Social History Social History Smoking status: Never smoker Second hand tobacco smoke exposure: No Alcohol intake: current Alcohol use details: occasional Substance use: never Substance use type: does not use Lack of Food: Never True Current Housing: I Have Housing Concerned About Future Housing: No Difficulty Paying Gas/Electric Bills: No Difficulty Paying for Meds: No Currently Unemployed: No Education: Bachelor's Degree Difficulty w/ Childcare or Family Care: No Living arrangements: with family Gender identity (if verbalized by the patient): Female Spiritual care concerns: No Exam Narrative: GENERAL: Well-appearing, well-nourished, and in no acute distress. HEAD: Normocep
--- NOTE | 2023-07-13 19:57 | ECG_ITS ---
SEE SCANNED COPY FOR CONFIRMED REPORT MTDD
--- NOTE | 2023-07-13 20:02 | PM.IMHP ---
H&P: HPI History of Present Illness Date/Time: 07/13/23 20:02 Chief Complaint: fall Narrative: THIS IS A 73-YEAR-OLD FEMALE WITH PAST MEDICAL HISTORY SIGNIFICANT FOR HYPERTENSION, OSTEOARTHRITIS, BREAST CANCER, RAYNAUD SYNDROME. PATIENT PRESENTS TO THE EMERGENCY ROOM VIA EMS AFTER HAVING A FALL AT MECHANICAL FALL GROUND LEVEL WAS UNABLE TO GET UP BY HERSELF WAITED FOR HER TO COME BACK HOME FOR ABOUT AN HOUR AND HALF. PATIENT DENIES ANY LOSS OF CONSCIOUSNESS. HAS BEEN HER USUAL STATE OF HEALTH. PRELIMINARY WORKUP WAS SIGNIFICANT FOR PELVIC X-RAY LEFT INTERTROCHANTERIC FRACTURE. EXAMINATION: XR chest 1V DATE: 07/13/2023 19:47 INDICATION: Fall. Weakness. TECHNIQUE: A single frontal view of the chest was obtained. COMPARISON: Chest single view 08/26/2015 FINDINGS: There is no pneumonia, pleural effusion, or pneumothorax. The heart size is normal. Breast implants are noted. There is an old healed fracture of proximal left humerus. There is an old healed fracture of left clavicle. IMPRESSION: 1. No acute cardiopulmonary disease. EXAMINATION: XR hip LT 2V w AP pelvis DATE: 07/13/2023 19:47 INDICATION: Left hip pain. Fall. TECHNIQUE: An anteroposterior view of the pelvis and 2 views of left hip were obtained. COMPARISON: Pelvis radiograph 01/29/2015 FINDINGS: There is a comminuted intertrochanteric fracture of proximal femur. The main distal fracture fragment demonstrates impaction. There is mild left hip osteoarthritis. There is a total right hip arthroplasty in near-anatomic alignment. There is moderate lumbar spondylosis. IMPRESSION: 1. Intertrochanteric fracture of proximal left femur. 2. Mild left hip osteoarthritis. 3. Total right hip arthroplasty in near-anatomic alignment. Review of Systems Review of Systems: FALL LEFT HIP PAIN Constitutional: Constitutional: Denies chills, Denies fatigue, Denies fever(s), Denies malaise, Denies night sweats, Denies poor appetite and Denies weakness Eyes: Eyes: Denies change in vision ENT: Denies dysphagia, Denies vertigo, Denies dizziness and Denies odynophagia Cardiovascular: Cardiovascular: Denies chest pain, Denies radiating jaw, neck or arm pain and Denies palpitations Respiratory: Respiratory: Denies cough and Denies dyspnea Gastrointestinal: Gastrointestinal: Denies abdominal pain, Denies nausea and Denies vomiting Genitourinary: Genitourinary: Denies dysuria Musculoskeletal: Musculoskeletal: Reports arthralgias ( LEFT HIP) and Reports limited range of motion Integumentary/Breasts: Skin/Breast: Denies rash Neurologic: Denies focal weakness and Denies Sensory deficit (Neuro) Psychiatric: Psychiatric: Reports no additional psychiatric complaints and Reports as per HPI Endocrine: Endocrine: Denies cold intolerance, Denies heat intolerance, Denies polyphagia, Denies polydipsia, Denies polyuria and Denies palpitations Hematologic/Lymphatic: Hematologic/Lymphatic: Reports no additional hematologic/lymphatic complaints and Reports as per HPI Allergic/Immunologic: Allergic/Immunologic: Reports no additional allergic/immunologic complaints and Reports as per HPI PMFSH Past Medical History Medical History (Updated 07/13/23 @ 23:38 by Niranjan Caba MD) Acquired breast deformity Allergies Blepharitis of both eyes Breast cancer Breast implant rupture Chest wall pain Depression History of breast cancer History of fracture Hyperlipidemia Hypertension Numbness in both legs Osteoarthritis Osteoporosis Raynauds syndrome Sexual dysfunction Shingles Surgical History Surgical History History of arthroplasty of left knee History of bilateral mastectomy History of bunionectomy History of left knee replacement History of right hip replacement Status post right foot surgery Family History Family History Sibling
[2023-07-13] MEDS: MORPHINE SULFATE (*CRX) 4 MG/ML INJ 2 MG IV PUSH (20:26)
[2023-07-13 20:44] VITALS: BP 148/90; PULSE 89; RESP 16; O2SAT 96
[2023-07-13 20:54] LABS: Appearance Urine Clear (Clear); Bacteria Urine None Seen /hpf; Bilirubin Urine Negative (Negative); Blood Urine 2+ (Negative); Color Urine Yellow (Yellow); Glucose Urine UA Negative (Negative); Ketones Urine Trace mg/dL (Negative); Leukocyte Esterase Ur Negative LEU/UL (Negative); Nitrate Urine Negative (Negative); Non Pathogenic Casts 0-2; Protein Urine Negative (Negative); Squamous Epithelial Cell Urine None Seen /hpf (Few); Urobilinogen Urine 0.2 mg/dL (<2.0); WBC Urine 0-5 /hpf (0-3)
[2023-07-13 20:57] LABS: Add Urine Microscopic? YES
[2023-07-13] MEDS: MORPHINE SULFATE (*CRX) 2 MG/ML INJ IV PUSH (22:03)
--- NOTE | 2023-07-13 22:37 | ADMGEN ---
This patient, Leah Sheehan, was admitted to 3 Med Surg Room 302-01 at 22:25. Patient/family oriented to hospital policies and general routines including ID bracelet, bed and alarms, visiting hours, pain management, procedures, bathroom and other care routines, personal items, smoking policy, room service/diet, and visiting hours. Information on how to activate the Rapid Response Team has been discussed. Patient/Family are encouraged to report perceived risks to care and to ask questions if they do not understand what they are told or what they should do.
[2023-07-13] MEDS: SODIUM CHLORIDE 0.9% IV 1,000 ML 75 ML IV CONT (22:42)
[2023-07-13 22:45] VITALS: BP 143/95; PULSE 60; RESP 22; TEMP 36.7; O2SAT 100; BMI 23.7
[2023-07-13] MEDS: SERTRALINE HCL 50 MG TABLET PO (23:53)
[2023-07-13] MEDS: lisinopriL 10 MG TABLET PO (23:53)
[2023-07-13] MEDS: ACETAMINOPHEN 500 MG TABLET 1000 MG PO (23:55)
[2023-07-14] VITALS (13 sets, daily range): BP systolic 110–174; BP diastolic 61–99; PULSE 72–107; RESP 12–188; TEMP 36.3–37.7; O2SAT 93–100
[2023-07-14] MEDS: ONDANSETRON INJ 4 MG/2 ML VIAL IV PUSH (00:01)
[2023-07-14] MEDS: HYDROmorphone HCL INJ (*CRX) 1 MG/ML SYR IV PUSH ×3 (04:56→11:55)
[2023-07-14] MEDS: traMADol HCL (*CRX) 50 MG TABLET PO (08:58)
[2023-07-14 08:59] LABS: Basophils Percent Auto 0.4 % (0.2-1.2); Eosinophils Absolute Auto 0.1 K/mm3 (0-0.3); Eosinophils Percent Auto 1.3 % (0-4.4); Hematocrit 33.8 % (37.0-47.0); Hemoglobin 10.4 g/dL (12.0-15.0); Immature Granulocyte Absolute 0.03 K/mm3 (0.00-0.031); Immature Granulocyte Percent A 0.4 % (0-0.5); Lymphocytes Absolute Auto 2.75 K/mm3 (0.9-3.2); Mean Corpuscular HGB Conc 30.8 g/dl (32-36); Mean Corpuscular Volume 100.6 fl (80-100); Mean Platelet Volume 9.1 fl (7.4-10.4); Monocytes Absolute Auto 0.8 K/mm3 (0.1-0.6); Monocytes Percent Auto 10.1 % (2.6-8.5); Neutrophils Percent Auto 51.8 % (45.5-73.1); Platelet Count Result 201 k/mm3 (150-375); Red Blood Count 3.36 M/mm3 (4.2-5.4); Red Cell Distribution Width 13.1 % (11.5-14.5); White Blood Count 7.6 K/mm3 (4.5-10.0)
[2023-07-14 09:12] LABS: Magnesium 1.7 mg/dL (1.6-2.3)
--- NOTE | 2023-07-14 09:12 | PM.CNOR ---
Assessment and Plan Assessment and plan (1) Closed intertrochanteric fracture of left femur: Qualifiers: Encounter type: initial encounter Fracture alignment: displaced Qualified Code(s): S72.142A - Displaced intertrochanteric fracture of left femur, initial encounter for closed fracture Code(s): S72.142A - Displaced intertrochanteric fracture of left femur, initial encounter for closed fracture Status: Acute Plan Displaced intertrochanteric fracture left hip. Active patient. Will benefit from ORIF with intramedullary nail. We discussed the risks, benefits, and alternatives to surgery. Proceed with ORIF left hip with intramedullary nail. Anticipate several weeks rehab. History of Present Illness HPI Consult date: 07/14/23 Chief complaint: Left intertrochanteric femur fracture Narrative: Patient complains of acute hip pain, after tripping at home. Community ambulator. Typically active and exercises. No previous hip pain. Comfortable at rest. No numbness, tingling, or other associated symptoms. History of left knee [place] infection followed by total knee arthroplasty with good result. History of right total hip arthroplasty for fracture several years ago, with a mild persistent limp. Review of Systems Review of Systems: Denies loss of consciousness. All systems reviewed & are unremarkable except as noted in HPI and below PMFSH Past Medical History Medical History (Updated 07/14/23 @ 09:14 by Dionicio Blakely MD) Acquired breast deformity Allergies Blepharitis of both eyes Breast cancer Breast implant rupture Chest wall pain Depression History of breast cancer History of fracture Hyperlipidemia Hypertension Numbness in both legs Osteoarthritis Osteoporosis Raynauds syndrome Sexual dysfunction Shingles Surgical History Surgical History History of arthroplasty of left knee History of bilateral mastectomy History of bunionectomy History of left knee replacement History of right hip replacement Status post right foot surgery Family History Family History Sibling Depression Hypertension Patient's sister is in good health Patient's brother is in good health Family history of allergic disorder Family history of alcoholism Family history of malignant neoplasm of breast in first degree relative Patient's sister is Mother Asthma Patient's mother is in good health Family history of allergic disorder Father Cerebrovascular accident Grandparent Family history of malignant neoplasm of male breast Other Family history of arthritis Family history of malignant neoplasm Social History Social History Smoking status: Never smoker Second hand tobacco smoke exposure: No Alcohol intake: current Drinks per week: 2 Alcohol use details: occasional Substance use: never Substance use type: does not use Do You Feel Safe in your Home?: Yes Lack of Transportation: No Lack of Food: Never True Current Housing: I Have Housing Concerned About Future Housing: No Difficulty Paying Gas/Electric Bills: No Difficulty Paying for Meds: No Currently Unemployed: No Education: Bachelor's Degree Difficulty w/ Childcare or Family Care: No Living arrangements: with family Gender identity (if verbalized by the patient): Female Spiritual care concerns: No Meds Home Medications and Allergies Home Medications Medication Instructions Recorded Confirmed Type magnesium oxide 500 mg PO DAILY 03/02/22 07/13/23 History potassium 99 mg tablet 99 mg PO DAILY 03/02/22 07/13/23 History lisinopril 10 mg tablet 10 mg PO HS #90 tabs 07/27/22 07/13/23 Rx sertraline 50 mg tablet 50 mg PO HS #90 tabs 07/27/22 07/13/23 Rx gabapentin 300 mg capsule 300 mg PO BID #180 caps 06/08/23 07/13/23 Rx Allergie
[2023-07-14 09:13] LABS: Alanine Aminotransferase 19 U/L (6-35); Albumin Level 3.4 g/dL (3.5-5.1); Alkaline Phosphatase 53 U/L (38-126); Anion Gap 3 mmol/L (4-12); Aspartate Amino Transferase 28 U/L (14-36); Bilirubin,Total 0.7 mg/dL (0.2-1.3); Blood Urea Nitrogen 10 mg/dL (7-17); Calcium 8.7 mg/dL (8.4-10.2); Carbon Dioxide 28 mmol/L (22-30); Chloride 105 mmol/L (98-107); Estimated CRCL calculation 74 ml/min; Estimated Glomerular Filt Rate > 60; Glucose 92 mg/dL (65-110); Potassium 3.9 mmol/L (3.4-5.0); Sodium 136 mmol/L (137-145)
--- NOTE | 2023-07-14 09:14 | PM.IMPN ---
Progress Note: A&P Assessment and Plan (1) Closed intertrochanteric fracture of left femur: Qualifiers: Encounter type: initial encounter Fracture alignment: displaced Qualified Code(s): S72.142A - Displaced intertrochanteric fracture of left femur, initial encounter for closed fracture Code(s): S72.142A - Displaced intertrochanteric fracture of left femur, initial encounter for closed fracture Status: Acute Assessment and Plan: 07/14/23: hip and pelvis x-ray showing intratrochanteric fracture of the left hip Orthopedic surgery consult today Postop day 0 we an ORIF of left hip intertrochanteric fracture with cephalomedullary nail continue pain control continue Neurontin continue maintenance IV fluids at 75 mil per hour continue SCDs continue bed rest Continue Diane catheter until tomorrow PT and OT ordered for tomorrow (2) Osteoporosis: Qualifiers: Osteoporosis type: unspecified Presence of current pathological fracture: unspecified Qualified Code(s): M81.0 - Age-related osteoporosis without current pathological fracture Code(s): M81.0 - Age-related osteoporosis without current pathological fracture Status: Acute Assessment and Plan: 07/14/23: left hip and pelvis x-ray showed mild left hip osteoarthritis, total right hip arthroplasty in near anatomic alignment, intratrochanteric fracture of the proximal left femur (3) Hypertension: Qualifiers: Hypertension type: essential hypertension Qualified Code(s): I10 - Essential (primary) hypertension Code(s): I10 - Essential (primary) hypertension Status: Chronic Assessment and Plan: 07/14/23: blood pressures ranging 111/61 to 148/90 continue lisinopril (4) Depression: Qualifiers: Depression Type: unspecified Qualified Code(s): F32.A - Depression, unspecified Code(s): F32.9 - Major depressive disorder, single episode, unspecified Status: Chronic Assessment and Plan: 07/14/23: continue Zoloft Time Spent With Patient Time with patient: 25 - 35 minutes Subjective Date/time seen: 07/14/23 09:14 Interval history: This is a 73-year-old female who presented to the hospital on 07/13/2023 after sustaining a fall and complaining of left hip pain. Workup in the hospital included a chest x-ray which was negative. A hip and pelvis x-ray which showed intertrochanteric fracture of proximal left femur, mild left hip osteoarthritis, total right hip arthroplasty in near anatomic alignment. Initial labs reveal a white blood cell count 12.3, sodium 133 otherwise unremarkable. A UA was obtained which showed trace ketones, 2+ urine blood, 11-28 urine RBCs. Patient was given 1 L of normal saline, neck acid, Ancef, Zofran, and morphine while in the ED. orthopedic surgery was consulted and patient was taken to the OR for ORIF of left hip intertrochanteric fracture with cephalomedullary nail. I seen her in PACU. She rates her pain as 8/10 and currently has chills with fanny hugger in place. She denies any fever, nausea, vomiting, diarrhea, abdominal pain, chest pain, shortness a breath. She is currently on room air, vital signs are stable, she has a Diane in place. Review of Systems Review of Systems: All systems reviewed & are unremarkable except as noted in HPI and below Constitutional: Constitutional: Reports as per HPI and Reports no additional constitutional complaints Eyes: Eyes: Reports as per HPI and Reports no additional eye complaints ENT: Reports system reviewed and no additional complaints, except as documented and Reports as per HPI Cardiovascular: Cardiovascular: Reports as per HPI and Reports no additional cardiovascular complaints Respiratory: Respiratory: Reports as per HPI and Reports no additional respiratory complaints Gastrointestinal: Gastrointestinal: Reports as per HPI and Reports no additional gastrointestinal complaints Genit
--- NOTE | 2023-07-14 09:17 | WPDHPUPDATE1 ---
History and Physical Update Update Date/Time: 07/14/23 09:17 History and Physical has been reviewed, including an updated exam of the patient. There are NO changes in the patient's condition. Risks, benefits, and alternatives have been discussed and questions answered. Patient agrees to proceed with procedure.
--- NOTE | 2023-07-14 12:38 | PC.NURSE ---
To OR per [ ], IV [ ]. Report given to [CAT].
[2023-07-14] MEDS: LACTATED RINGERS 1,000 ML 30 ML IV CONT ×2 (12:45→16:28)
--- NOTE | 2023-07-14 13:55 | WPDANESEPPF ---
Anes - Initial Pre Proc Eval Procedure: Operation Date: 07/14/23 15:30 Proposed Procedures p Left Intertrochanteric Nail - Dionicio Blakely MD Date/Time: 07/14/23 13:55 Surgeon: Niranjan Caba MD Pre Op Diagnosis: Left intertrochanteric femur fracture Patient Data Age: 73 Gender: F Height: 1.65 m Weight: 64.7 kg Last Vital Signs Temp 36.3 C L 07/14/23 05:58 Pulse 72 07/14/23 05:58 Resp 20 07/14/23 05:58 BP 111/61 07/14/23 05:58 Pulse Ox 94 07/14/23 09:55 O2 Del Method Room Air 07/14/23 09:55 Allergies Allergy/AdvReac Type Severity Reaction Status Date / Time poison hayes extract Allergy Rash Verified 02/14/23 10:04 Sulfa (Sulfonamide Allergy Unknown Verified 02/14/23 10:04 Antibiotics) Home Medications Medication Instructions Recorded Confirmed Type magnesium oxide 500 mg PO DAILY 03/02/22 07/13/23 History potassium 99 mg tablet 99 mg PO DAILY 03/02/22 07/13/23 History lisinopril 10 mg tablet 10 mg PO HS #90 tabs 07/27/22 07/13/23 Rx sertraline 50 mg tablet 50 mg PO HS #90 tabs 07/27/22 07/13/23 Rx gabapentin 300 mg capsule 300 mg PO BID #180 caps 06/08/23 07/13/23 Rx Laboratory Tests 07/13/23 07/13/23 07/14/23 19:35 20:41 08:39 WBC 12.3 H K/mm3 7.6 K/mm3 (4.5-10.0) (4.5-10.0) RBC 3.84 L M/mm3 3.36 L M/mm3 (4.2-5.4) (4.2-5.4) Hgb 12.2 g/dL 10.4 L g/dL (12.0-15.0) (12.0-15.0) Hct 36.6 L % 33.8 L % (37.0-47.0) (37.0-47.0) MCV 95.3 fl 100.6 H D fl (80-100) (80-100) MCH 31.8 pg 31.0 pg (26-34) (26-34) MCHC 33.3 g/dl 30.8 L g/dl (32-36) (32-36) RDW 12.7 % 13.1 % (11.5-14.5) (11.5-14.5) Plt Count 224 k/mm3 201 k/mm3 (150-375) (150-375) MPV 9.0 fl 9.1 fl (7.4-10.4) (7.4-10.4) Immature Gran % (Auto) 0.3 % 0.4 % (0-0.5) (0-0.5) Neut % (Auto) 77.4 H % 51.8 % (45.5-73.1) (45.5-73.1) Lymph % (Auto) 15.7 L % 36.0 % (18.3-44.2) (18.3-44.2) [place] % (Auto) 5.9 % 10.1 H % (2.6-8.5) (2.6-8.5) Eos % (Auto) 0.4 % 1.3 % (0-4.4) (0-4.4) Baso % (Auto) 0.3 % 0.4 % (0.2-1.2) (0.2-1.2) Lymph # (Auto) 1.93 K/mm3 2.75 K/mm3 (0.9-3.2) (0.9-3.2) [place] # (Auto) 0.7 H K/mm3 0.8 H K/mm3 (0.1-0.6) (0.1-0.6) Eos # (Auto) 0.1 K/mm3 0.1 K/mm3 (0-0.3) (0-0.3) Baso # (Auto) 0.0 K/mm3 0.0 K/mm3 (0.0-0.1) (0.0-0.1) Abs Immat Gran (auto) 0.04 H K/mm3 0.03 K/mm3 (0.00-0.031) (0.00-0.031) Absolute Neuts (auto) 9.5 H K/mm3 4.0 K/mm3 (1.3-6.7) (1.3-6.7) Absolute Nucleated RBC 0.000 K/mm3 0.000 K/mm3 (0.0-0.012) (0.0-0.012) Nucleated RBC % 0.0 % 0.0 % (0.0-0.2) (0.0-0.2) PT 13.5 Seconds (11.1-14.7) INR 1.0 APTT 27.4 Seconds (22.3-36.8) Sodium 133 L mmol/L 136 L mmol/L (137-145) (137-145) Potassium 3.4 mmol/L 3.9 mmol/L (3.4-5.0) (3.4-5.0) Chloride 101 mmol/L 105 mmol/L (98-107) (98-107) Carbon Dioxide 25 mmol/L 28 mmol/L (22-30) (22-30) Anion Gap 7 mmol/L 3 L mmol/L (4-12) (4-12) BUN 16 mg/dL 10 D mg/dL (7-17) (7-17) Creatinine 0.50 L mg/dL 0.50 L mg/dL (0.7-1.0) (0.7-1.0) Estim Creat Clear Calc 74 ml/min 74 ml/min Estimated GFR > 60 > 60 (59 - ) (59 - ) Glucose 111 H mg/dL 92 mg/dL (65-110) (65-110) Calcium 9.0 mg/dL 8.7 mg/dL (8.4-10.2) (8.4-10.2) Magnesium 1.7 mg/dL (1.6-2.3) Total Bilirubin 0.6 mg/dL 0.7 mg/dL (0.2-1.3) (0.2-1.3) AST 35 U/L 28 U/L (14-36) (14-36) ALT 22 U/L 19 U/L (6-35) (6-35) Alkaline Phosphatase 82 U/L 53 U/L (38-126) (38-126) Total Protein 7.0 g/dL 6.0 L g/dL (6.3-8.2) (6.3-8.2) Albumin 3.9 g/dL 3.4 L g/dL (3.5-5.1) (3.5-5.1) Urine Color Yellow (Yellow)
[2023-07-14] MEDS: TRANEXAMIC ACID 1,000MG/ISO100 1,000 MG/100 ML BAG 200 MG IVPB (14:41)
[2023-07-14] MEDS: ceFAZolin 2 GM/D5W 50 ML 2 GM/50 ML BAG IVPB (15:02)
--- NOTE | 2023-07-14 16:33 | W.PM.PROC2 ---
Procedure Note - Detailed Date of Procedure 07/14/23 Pre-op Diagnosis Left hip displaced intertrochanteric femur fracture Post-op Diagnosis Same Procedure Performed ORIF left hip intertrochanteric fracture with cephalomedullary nail. Surgeon Dionicio Blakely MD Anesthesia General Findings Good bone quality. Stable fracture configuration after reduction. Short nail used without distal locking. Excellent bone quality. Description of Procedure The patient was given a general anesthetic, then carefully placed in fracture table. Sterile prep and drape performed in the usual fashion. Sterile curtain was used. Gentle traction was utilized to reduce the fracture. Fluoroscopy was used to confirm anatomic reduction and a proper placement of the implants. A longitudinal incision was created at the tip of the trochanter. The deep fascia was incised. The cannulated awl was used to open the proximal femur. The guidewire was placed across the fracture. The reamer was used to open the canal. The cephalomedullary nail was placed across the fracture site. A separate incision was made for placement of the cannulated guide sleeve. The guide pin was placed in the center of the femoral head. Appropriate measurement was taken. The pin was over reamed. The screw was placed with excellent purchase. The set screw was placed proximally and backed out a quater turn. The jig was removed. The wound was irrigated. The deep fascia was closed with #1 Vicryl suture followed by 2-0 Vicryl suture and paras. Sterile dressing was applied. The patient was transferred to the recovery room in stable condition. There were no complications. Implants Gamma 4 nail, left. 11 mm x 170 mm. 125?. 95 mm lag screw. Estimated Blood Loss 200 Drains No Packing No Pathology None sent Complications No immediate complications Condition Stable Disposition PACU [facility] Billing Surgery - Charge Forward: Surgery Billing
[2023-07-14] MEDS: fentaNYL CITRATE INJ (*CRX) 100 MCG/2 ML VIAL 25 MCG IV PUSH ×6 (16:49→17:13)
--- NOTE | 2023-07-14 17:32 | PC.NURSE ---
Returned from OR per [ ]. Report received from [Kaykay ].
[2023-07-14] MEDS: GABAPENTIN 300 MG CAPSULE PO (17:41)
[2023-07-14] MEDS: SODIUM CHLORIDE 0.9% IV 1,000 ML 125 ML IV CONT (18:00)
[2023-07-14] MEDS: SENNA/DOCUSATE SODIUM TABLET 2 TAB PO (18:03)
[2023-07-14] MEDS: ACETAMINOPHEN 325 MG TABLET 650 MG PO (18:04)
[2023-07-14] MEDS: lisinopriL 10 MG TABLET PO (20:56)
[2023-07-14] MEDS: SERTRALINE HCL 50 MG TABLET PO (20:56)
[2023-07-14] MEDS: FAMOTIDINE 20 MG TABLET PO (20:57)
[2023-07-14] MEDS: oxyCODONE/ACETAMINOPHEN (*CRX) 10-325 MG TABLET 1 TAB PO (20:57)
[2023-07-15] MEDS: ACETAMINOPHEN 325 MG TABLET 650 MG PO ×4 (00:37→16:42)
[2023-07-15] MEDS: ceFAZolin 2 GM/D5W 50 ML 2 GM/50 ML BAG IVPB ×3 (00:38→09:20)
[2023-07-15 03:22] VITALS: BP 116/71; PULSE 76; RESP 16; TEMP 36.4; O2SAT 97
[2023-07-15] MEDS: oxyCODONE/ACETAMINOPHEN (*CRX) 10-325 MG TABLET 1 TAB PO ×2 (03:30→20:30)
[2023-07-15] MEDS: SODIUM CHLORIDE 0.9% IV 1,000 ML 125 ML IV CONT (05:25)
[2023-07-15 07:04] LABS: Basophils Percent Auto 0.2 % (0.2-1.2); Hematocrit 30.2 % (37.0-47.0); Hemoglobin 9.3 g/dL (12.0-15.0); Immature Granulocyte Absolute 0.07 K/mm3 (0.00-0.031); Immature Granulocyte Percent A 0.7 % (0-0.5); Lymphocytes Absolute Auto 2.46 K/mm3 (0.9-3.2); Lymphocytes Percent Auto 23.7 % (18.3-44.2); Mean Corpuscular HGB Conc 30.8 g/dl (32-36); Mean Corpuscular Hemoglobin 31.4 pg (26-34); Mean Platelet Volume 9.6 fl (7.4-10.4); Neutrophils Absolute Auto 6.8 K/mm3 (1.3-6.7); Neutrophils Percent Auto 65.4 % (45.5-73.1); Platelet Count Result 188 k/mm3 (150-375); Red Blood Count 2.96 M/mm3 (4.2-5.4); Red Cell Distribution Width 13.2 % (11.5-14.5); White Blood Count 10.4 K/mm3 (4.5-10.0)
[2023-07-15 07:13] LABS: Anion Gap 4 mmol/L (4-12); Blood Urea Nitrogen 6 mg/dL (7-17); Calcium 8.6 mg/dL (8.4-10.2); Carbon Dioxide 26 mmol/L (22-30); Chloride 106 mmol/L (98-107); Estimated CRCL calculation 74 ml/min; Estimated Glomerular Filt Rate > 60; Glucose 126 mg/dL (65-110); Potassium 3.9 mmol/L (3.4-5.0); Sodium 136 mmol/L (137-145)
[2023-07-15 07:22] VITALS: BP 106/58; PULSE 77; RESP 16; TEMP 36.8; O2SAT 93
--- NOTE | 2023-07-15 08:15 | P.PNAN_ITS ---
Anes - Prog Note Post-Op Date/Time: 07/15/23 08:15 Cardiovascular status: normal Respiratory status: normal Airway patency: baseline Mental status: baseline Post-Op hydration status: normal Vital Signs: Last Vital Signs Temp 36.8 C 07/15/23 07:22 Pulse 77 07/15/23 07:22 Resp 16 07/15/23 07:22 BP 106/58 L 07/15/23 07:22 Pulse Ox 93 07/15/23 07:22 O2 Del Method Nasal Cannula 07/14/23 17:25 O2 Flow Rate 2 07/14/23 17:25 Pain Score (VAS): 0 I/O: Intake & Output 07/14/23 07/15/23 07/15/23 23:59 07:59 15:59 Intake Total 200 1200 Output Total 2000 Balance 200 -800 Laboratory Tests 07/15/23 06:11 07/15/23 06:11 07/14/23 07/15/23 08:39 06:11 WBC 7.6 10.4 H RBC 3.36 L 2.96 L Hgb 10.4 L 9.3 L Hct 33.8 L 30.2 L MCV 100.6 H D 102.0 H MCH 31.0 31.4 MCHC 30.8 L 30.8 L RDW 13.1 13.2 Plt Count 201 188 MPV 9.1 9.6 Immature Gran % (Auto) 0.4 0.7 H Neut % (Auto) 51.8 65.4 Lymph % (Auto) 36.0 23.7 [place] % (Auto) 10.1 H 10.0 H Eos % (Auto) 1.3 0.0 Baso % (Auto) 0.4 0.2 Lymph # (Auto) 2.75 2.46 [place] # (Auto) 0.8 H 1.0 H Eos # (Auto) 0.1 0.0 Baso # (Auto) 0.0 0.0 Abs Immat Gran (auto) 0.03 0.07 H Absolute Neuts (auto) 4.0 6.8 H Absolute Nucleated RBC 0.000 0.000 Nucleated RBC % 0.0 0.0 Sodium 136 L 136 L Potassium 3.9 3.9 Chloride 105 106 Carbon Dioxide 28 26 Anion Gap 3 L 4 BUN 10 D 6 L Creatinine 0.50 L 0.50 L Estim Creat Clear Calc 74 74 Estimated GFR > 60 > 60 Glucose 92 126 H Calcium 8.7 8.6 Magnesium 1.7 Total Bilirubin 0.7 AST 28 ALT 19 Alkaline Phosphatase 53 Total Protein 6.0 L Albumin 3.4 L Patient Feedback: Patient satisfied with anesthetic care.
--- NOTE | 2023-07-15 08:47 | PM.PNORT ---
Progress Note: A&P Assessment and Plan (1) Closed intertrochanteric fracture of left femur: Qualifiers: Encounter type: initial encounter Fracture alignment: displaced Qualified Code(s): S72.142A - Displaced intertrochanteric fracture of left femur, initial encounter for closed fracture Code(s): S72.142A - Displaced intertrochanteric fracture of left femur, initial encounter for closed fracture Status: Acute (2) Orthopedic aftercare: Code(s): Z47.89 - Encounter for other orthopedic aftercare Status: Acute Plan Postop day 1: ORIF left hip intertrochanteric fracture with cephalomedullary nail. Patient tolerated procedure well. No complications. Pain manageable with pain medication. No numbness or tingling. We had a lengthy discussion regarding postoperative wound care, limitations, expectations, and exercises. Patient shows good understanding. She has had initial physical therapy and is tolerating it well. Patient would benefit from a few weeks of rehab. Discharge planning in progress. Weight bearing as tolerated with a walker. Okay for discharge when cleared medically. Ortho instructions: ORIF left hip intertrochanteric fracture with cephalomedullary nail DOS: 07/14/23 D/C to SNF/rehab Xray and follow up in office in 4 weeks. Please call [facility] at for appointment. Wound Care: remove paras at 2 weeks post op (07/28/23). Daily dressing changes until healed. PT: Weight bearing as tolerated with the walker. DVT prophylaxis: continue Lovenox for 30 days total Pain medication: Percocet. Constipation: Senokot-S and Miralax. Subjective Subjective Date/Time Seen: 07/15/23 08:47 Interval history: Patient resting comfortably in bed. Pain controlled. No numbness or tingling. No other complaints. Tolerated anesthesia well. Review of Systems Review of Systems: Pain left hip and leg with movement. Denied pain elsewhere. All systems reviewed & are unremarkable except as noted in HPI and below ROS unobtainable: Yes unobtainable due to medical condition Exam Narrative: Normal weight 73 y/o female. Resting comfortably in bed. Dressing dry and intact with no drainage. Mild swelling. No distal edema. No ecchymosis. No erythema. No hematoma. Range of motion limited due to pain. Calf nontender. Thigh nontender. No varicosities. Distal pulses palpable. Wiggles toes. Objective Data Vital Signs Vital Signs: Vital Signs - 24 hr 07/14/23 09:55 07/14/23 12:45 07/14/23 16:29 Temperature 98.1 F 97.4 F L Pulse Rate 81 106 H Respiratory Rate 16 12 Blood Pressure 110/62 161/99 H Pulse Oximetry 94 100 100 Oxygen Delivery Room Air Nasal Cannula Simple Face Mask Oxygen Flow Rate 2 6 07/14/23 16:40 07/14/23 16:55 07/14/23 17:10 Temperature Pulse Rate 100 102 H 97 Respiratory Rate 12 12 12 Blood Pressure 174/96 H 143/93 H 156/92 H Pulse Oximetry 99 97 97 Oxygen Delivery Simple Face Mask Nasal Cannula Nasal Cannula Oxygen Flow Rate 6 2 2 07/14/23 17:25 07/14/23 17:37 07/14/23 17:52 Temperature 98.8 F 98.4 F Pulse Rate 106 H 96 95 Respiratory Rate 12 18 16 Blood Pressure 144/84 H 138/74 139/79 Pulse Oximetry 100 99 94 Oxygen Delivery Nasal Cannula Oxygen Flow Rate 2 07/14/23 18:22 07/14/23 19:22 07/14/23 23:22 Temperature 99.8 F H 97.7 F 97.5 F L Pulse Rate 107 H 98 95 Respiratory Rate 188 H 18 16 Blood Pressure 117/70 149/73 H 134/81 Pulse Oximetry 93 100 93 Oxygen Delivery Oxygen Flow Rate 07/15/23 03:22 07/15/23 07:22 Temperature 97.6 F 98.3 F Pulse Rate 76 77 Respiratory Rate 16 16 Blood Pressure 116/71 106/58 L Pulse Oximetry 97 93 Oxygen Delivery Oxygen Flow Rate Intake/Output Intake/Output: Intake & Output 07/12/23 07/13/23 07/14/23 07/15/23 23:59 23:59 23:59 23:59 Intake Total 1000 1560 1200 Output Total 1050 2000 Balance 1000 510 -800 Meds/Results Medications: Act
[2023-07-15] MEDS: polyethylene glycoL 3350 17 GM POWD.PACK PO (09:00)
[2023-07-15] MEDS: MAGNESIUM OXIDE 400 MG TABLET PO (09:22)
[2023-07-15] MEDS: GABAPENTIN 300 MG CAPSULE PO ×2 (09:22→16:41)
[2023-07-15] MEDS: SENNA/DOCUSATE SODIUM TABLET 2 TAB PO ×2 (09:22→16:43)
[2023-07-15] MEDS: FAMOTIDINE 20 MG TABLET PO ×2 (09:22→20:31)
[2023-07-15 11:22] VITALS: BP 116/53; PULSE 68; RESP 18; TEMP 36.4; O2SAT 96
[2023-07-15] MEDS: ENOXAPARIN 40 MG/0.4 ML SYRINGE SUB-Q (12:29)
--- NOTE | 2023-07-15 12:38 | PM.IMPN ---
Progress Note: A&P Assessment and Plan (1) Closed intertrochanteric fracture of left femur: Qualifiers: Encounter type: initial encounter Fracture alignment: displaced Qualified Code(s): S72.142A - Displaced intertrochanteric fracture of left femur, initial encounter for closed fracture Code(s): S72.142A - Displaced intertrochanteric fracture of left femur, initial encounter for closed fracture Status: Acute Assessment and Plan: 07/14/23: hip and pelvis x-ray showing intratrochanteric fracture of the left hip Orthopedic surgery consult today Postop day 0 we an ORIF of left hip intertrochanteric fracture with cephalomedullary nail continue pain control continue Neurontin continue maintenance IV fluids at 75 mil per hour continue SCDs continue bed rest Continue Diane catheter until tomorrow PT and OT ordered for tomorrow 07/15/23: Patient is a moderate assist with PT and OT Diane discontinued Discontinue IV fluids, increase oral intake Continue pain control (2) Osteoporosis: Qualifiers: Osteoporosis type: unspecified Presence of current pathological fracture: unspecified Qualified Code(s): M81.0 - Age-related osteoporosis without current pathological fracture Code(s): M81.0 - Age-related osteoporosis without current pathological fracture Status: Acute Assessment and Plan: 07/14/23: left hip and pelvis x-ray showed mild left hip osteoarthritis, total right hip arthroplasty in near anatomic alignment, intratrochanteric fracture of the proximal left femur 07/15/23: No change to current treatment plan (3) Hypertension: Qualifiers: Hypertension type: essential hypertension Qualified Code(s): I10 - Essential (primary) hypertension Code(s): I10 - Essential (primary) hypertension Status: Chronic Assessment and Plan: 07/14/23: blood pressures ranging 111/61 to 148/90 continue lisinopril 07/15/23: No change to current treatment plan (4) Depression: Qualifiers: Depression Type: unspecified Qualified Code(s): F32.A - Depression, unspecified Code(s): F32.9 - Major depressive disorder, single episode, unspecified Status: Chronic Assessment and Plan: 07/14/23: continue Zoloft 07/15/23: No change to current treatment Time Spent With Patient Time with patient: Greater than 35 minutes Subjective Date/time seen: 07/15/23 12:38 Interval history: 07/14/23: This is a 73-year-old female who presented to the hospital on 07/13/2023 after sustaining a fall and complaining of left hip pain. Workup in the hospital included a chest x-ray which was negative. A hip and pelvis x-ray which showed intertrochanteric fracture of proximal left femur, mild left hip osteoarthritis, total right hip arthroplasty in near anatomic alignment. Initial labs reveal a white blood cell count 12.3, sodium 133 otherwise unremarkable. A UA was obtained which showed trace ketones, 2+ urine blood, 11-28 urine RBCs. Patient was given 1 L of normal saline, neck acid, Ancef, Zofran, and morphine while in the ED. orthopedic surgery was consulted and patient was taken to the OR for ORIF of left hip intertrochanteric fracture with cephalomedullary nail. I seen her in PACU. She rates her pain as 8/10 and currently has chills with Bebeto hugger in place. She denies any fever, nausea, vomiting, diarrhea, abdominal pain, chest pain, shortness a breath. She is currently on room air, vital signs are stable, she has a Diane in place. 07/15/23: Labs today show a white blood cell count of 10.4, hemoglobin 9.3, sodium 136. Patient states her pain has been well controlled upon assessing. She was in the middle of doing her exercises and rates her pain 7-10. Case coordination working on VIRAL placement. She will continue therapy and pain control here. Review of Systems Review of Systems: All systems reviewed & are unremarkable except a
[2023-07-15 15:22] VITALS: BP 128/73; PULSE 90; RESP 18; TEMP 36.8; O2SAT 93
[2023-07-15] MEDS: SODIUM CHLORIDE 0.9% IV 1,000 ML 75 ML IV CONT ×2 (15:54→15:58)
[2023-07-15 19:22] VITALS: BP 136/75; PULSE 76; RESP 16; TEMP 37.7; O2SAT 98
[2023-07-15] MEDS: lisinopriL 10 MG TABLET PO (20:31)
[2023-07-15] MEDS: SERTRALINE HCL 50 MG TABLET PO (20:31)
[2023-07-16] MEDS: ACETAMINOPHEN 325 MG TABLET 650 MG PO ×4 (00:21→17:30)
[2023-07-16 06:00] VITALS: BP 134/78; PULSE 87; RESP 16; TEMP 37.1; O2SAT 96
[2023-07-16 08:00] VITALS: PULSE 100; RESP 18; O2SAT 100
[2023-07-16 08:20] LABS: Glucose Point of Care 99 mg/dl (65-105)
[2023-07-16] MEDS: ENOXAPARIN 40 MG/0.4 ML SYRINGE SUB-Q (08:59)
[2023-07-16] MEDS: SENNA/DOCUSATE SODIUM TABLET 2 TAB PO ×2 (09:00→17:37)
[2023-07-16] MEDS: polyethylene glycoL 3350 17 GM POWD.PACK PO (09:00)
[2023-07-16] MEDS: GABAPENTIN 300 MG CAPSULE PO ×2 (09:00→17:36)
[2023-07-16] MEDS: MAGNESIUM OXIDE 400 MG TABLET PO (09:00)
[2023-07-16] MEDS: FAMOTIDINE 20 MG TABLET PO ×2 (09:00→21:18)
[2023-07-16] MEDS: oxyCODONE/ACETAMINOPHEN (*CRX) 10-325 MG TABLET 1 TAB PO ×3 (10:52→21:17)
--- NOTE | 2023-07-16 12:23 | PM.DS ---
DS: Admitting Diagnosis Discharge Date 07/16/23 Admitting Diagnosis Closed intratrochanteric fracture of left femur Osteoporosis Hypertension Osteoarthritis DS: Discharge Diagnosis Discharge Diagnosis (1) Closed intertrochanteric fracture of left femur: Qualifiers: Encounter type: initial encounter Fracture alignment: displaced Qualified Code(s): S72.142A - Displaced intertrochanteric fracture of left femur, initial encounter for closed fracture Code(s): S72.142A - Displaced intertrochanteric fracture of left femur, initial encounter for closed fracture Status: Acute (2) Osteoporosis: Qualifiers: Osteoporosis type: unspecified Presence of current pathological fracture: unspecified Qualified Code(s): M81.0 - Age-related osteoporosis without current pathological fracture Code(s): M81.0 - Age-related osteoporosis without current pathological fracture Status: Acute (3) Hypertension: Qualifiers: Hypertension type: essential hypertension Qualified Code(s): I10 - Essential (primary) hypertension Code(s): I10 - Essential (primary) hypertension Status: Chronic (4) Depression: Qualifiers: Depression Type: unspecified Qualified Code(s): F32.A - Depression, unspecified Code(s): F32.9 - Major depressive disorder, single episode, unspecified Status: Chronic DS: Summary Hospital Course Reason for hospitalization: Closed intratrochanteric fracture of left femur Osteoporosis Hypertension Osteoarthritis Hospital Course: 07/14/23: This is a 73-year-old female who presented to the hospital on 07/13/2023 after sustaining a fall and complaining of left hip pain.? Workup in the hospital included a chest x-ray which was negative.? A hip and pelvis x-ray which showed intertrochanteric fracture of proximal left femur, mild left hip osteoarthritis, total right hip arthroplasty in near anatomic alignment.? Initial labs reveal a white blood cell count 12.3, sodium 133 otherwise unremarkable.? A UA was obtained which showed trace ketones, 2+ urine blood, 11-28 urine RBCs.? Patient was given 1 L of normal saline, neck acid, Ancef, Zofran, and morphine while in the ED. orthopedic surgery was consulted and patient was taken to the OR for ORIF of left hip intertrochanteric fracture with cephalomedullary nail. I seen her in PACU. She rates her pain as 8/10 and currently has chills with Bebeto hugger in place.? She denies any fever, nausea, vomiting, diarrhea, abdominal pain, chest pain, shortness a breath.? She is currently on room air, vital signs are stable, she has a Diane in place. 07/15/23: Labs today show a white blood cell count of 10.4, hemoglobin 9.3, sodium 136. Patient states her pain has been well controlled upon assessing. She was in the middle of doing her exercises and rates her pain 7-10.? Case coordination working on VIRAL placement. She will continue therapy and pain control here. 07/16/2023: Patient denies any new complaints today. Patient is stable [facility] [place]. She will need to follow up with Ortho in a few weeks. Continue pain control with Percocet. Final diagnosis: Closed intertrochanteric fracture of left femur, osteoporosis, osteoarthritis, status post ORIF left hip intertrochanteric fracture with cephalomedullary nail Status at Discharge Cognitive/behavioral status at discharge: Alert oriented x4 Functional status at discharge: uses cane/walker Overall status at discharge: patient is progressing back to baseline Time Spent with Patient Time attestation: Total time spent providing and/or coordinating discharge services: Time spent: Greater than 30 minutes Exam Narrative: General: In no acute distress, well nourished Head: atraumatic, no encephalopathy Eyes: EOMI, PERRLA, sclera clear ENT: moist mucous membranes, nasal passages clear Neck: supple, no JVD, no adenopathy, trachea midline Cardiac: Norm
[2023-07-16 13:27] LABS: Hematocrit 29.7 % (37.0-47.0); Hemoglobin 9.5 g/dL (12.0-15.0); Mean Corpuscular Hemoglobin 32.6 pg (26-34); Mean Corpuscular Volume 102.1 fl (80-100); Platelet Count Result 208 k/mm3 (150-375); Red Blood Count 2.91 M/mm3 (4.2-5.4); Red Cell Distribution Width 13.1 % (11.5-14.5); White Blood Count 9.8 K/mm3 (4.5-10.0)
[2023-07-16 13:37] LABS: Alanine Aminotransferase 17 U/L (6-35); Albumin Level 3.7 g/dL (3.5-5.1); Alkaline Phosphatase 57 U/L (38-126); Anion Gap 7 mmol/L (4-12); Aspartate Amino Transferase 30 U/L (14-36); Bilirubin,Total 0.7 mg/dL (0.2-1.3); Blood Urea Nitrogen 6 mg/dL (7-17); Calcium 8.9 mg/dL (8.4-10.2); Carbon Dioxide 27 mmol/L (22-30); Chloride 102 mmol/L (98-107); Estimated CRCL calculation 74 ml/min; Estimated Glomerular Filt Rate > 60; Glucose 138 mg/dL (65-110); Potassium 3.5 mmol/L (3.4-5.0); Sodium 136 mmol/L (137-145)
[2023-07-16 14:00] VITALS: BP 142/82; PULSE 100; RESP 18; TEMP 37.2; O2SAT 100
--- NOTE | 2023-07-16 15:44 | P.PNIM_ITS ---
Progress Note: A&P Assessment and Plan (1) Closed intertrochanteric fracture of left femur: Qualifiers: Encounter type: initial encounter Fracture alignment: displaced Qualified Code(s): S72.142A - Displaced intertrochanteric fracture of left femur, initial encounter for closed fracture Code(s): S72.142A - Displaced intertrochanteric fracture of left femur, initial encounter for closed fracture Status: Acute Assessment and Plan: 07/14/23: * hip and pelvis x-ray showing intratrochanteric fracture of the left hip * Orthopedic surgery consult today * Postop day 0 we an ORIF of left hip intertrochanteric fracture with cephalomedullary nail * continue pain control * continue Neurontin * continue maintenance IV fluids at 75 mil per hour * continue SCDs * continue bed rest * Continue Diane catheter until tomorrow * PT and OT ordered for tomorrow 07/15/23: * Patient is a moderate assist with PT and OT * Diane discontinued * Discontinue IV fluids, increase oral intake * Continue pain control 06/29/23: * No change to current treatment plan * Plan for VIRAL tomorrow. (2) Osteoporosis: Qualifiers: Osteoporosis type: unspecified Presence of current pathological fracture: unspecified Qualified Code(s): M81.0 - Age-related osteoporosis without current pathological fracture Code(s): M81.0 - Age-related osteoporosis without current pathological fracture Status: Acute Assessment and Plan: 07/14/23: * left hip and pelvis x-ray showed mild left hip osteoarthritis, total right hip arthroplasty in near anatomic alignment, intratrochanteric fracture of the proximal left femur 07/15/23: * No change to current treatment plan (3) Hypertension: Qualifiers: Hypertension type: essential hypertension Qualified Code(s): I10 - Essential (primary) hypertension Code(s): I10 - Essential (primary) hypertension Status: Chronic Assessment and Plan: 07/14/23: * blood pressures ranging 111/61 to 148/90 * continue lisinopril 07/15/23: * No change to current treatment plan (4) Depression: Qualifiers: Depression Type: unspecified Qualified Code(s): F32.A - Depression, unspecified Code(s): F32.9 - Major depressive disorder, single episode, unspecified Status: Chronic Assessment and Plan: 07/14/23: * continue Zoloft 07/15/23: * No change to current treatment Time Spent With Patient Time with patient: 25 - 35 minutes Subjective Date/time seen: 07/16/23 15:44 Interval history: 07/14/23: This is a 73-year-old female who presented to the hospital on 07/13/2023 after sustaining a fall and complaining of left hip pain.? Workup in the hospital included a chest x-ray which was negative.? A hip and pelvis x-ray which showed intertrochanteric fracture of proximal left femur, mild left hip osteoarthritis, total right hip arthroplasty in near anatomic alignment.? Initial labs reveal a white blood cell count 12.3, sodium 133 otherwise unremarkable.? A UA was obtained which showed trace ketones, 2+ urine blood, 11-28 urine RBCs.? Patient was given 1 L of normal saline, neck acid, Ancef, Zofran, and morphine while in the ED. orthopedic surgery was consulted and patient was taken to the OR for ORIF of left hip intertrochanteric fracture with cephalomedullary nail. I seen her in PACU. She rates her pain as 8/10 and currently has chills with Bebeto hugger in place.? She denies any fever, nausea, vomiting, diarrhea, abdominal pain, chest pain, shortness a breath.? She is currently o
[2023-07-16] MEDS: lisinopriL 10 MG TABLET PO (21:18)
[2023-07-16] MEDS: SERTRALINE HCL 50 MG TABLET PO (21:18)
[2023-07-16 22:00] VITALS: BP 129/70; PULSE 98; RESP 14; TEMP 37.2; O2SAT 98
[2023-07-17] MEDS: ACETAMINOPHEN 325 MG TABLET 650 MG PO ×3 (00:11→13:40)
[2023-07-17 06:00] VITALS: BP 109/62; PULSE 86; RESP 14; TEMP 36.6; O2SAT 96
[2023-07-17 06:14] LABS: Hematocrit 26.7 % (37.0-47.0); Hemoglobin 8.2 g/dL (12.0-15.0); Mean Corpuscular HGB Conc 30.7 g/dl (32-36); Mean Corpuscular Hemoglobin 31.7 pg (26-34); Mean Corpuscular Volume 103.1 fl (80-100); Mean Platelet Volume 9.5 fl (7.4-10.4); Platelet Count Result 199 k/mm3 (150-375); Red Blood Count 2.59 M/mm3 (4.2-5.4); Red Cell Distribution Width 13.1 % (11.5-14.5); White Blood Count 6.8 K/mm3 (4.5-10.0)
[2023-07-17 06:23] LABS: Alanine Aminotransferase 15 U/L (6-35); Albumin Level 3.1 g/dL (3.5-5.1); Alkaline Phosphatase 60 U/L (38-126); Anion Gap 1 mmol/L (4-12); Aspartate Amino Transferase 30 U/L (14-36); Bilirubin,Total 0.6 mg/dL (0.2-1.3); Blood Urea Nitrogen 8 mg/dL (7-17); Calcium 8.8 mg/dL (8.4-10.2); Carbon Dioxide 32 mmol/L (22-30); Chloride 103 mmol/L (98-107); Estimated CRCL calculation 90 ml/min; Estimated Glomerular Filt Rate > 60; Glucose 103 mg/dL (65-110); Potassium 3.7 mmol/L (3.4-5.0); Sodium 136 mmol/L (137-145)
--- NOTE | 2023-07-17 08:23 | PM.IMPN ---
Progress Note: A&P Assessment and Plan (1) Closed intertrochanteric fracture of left femur: Qualifiers: Encounter type: initial encounter Fracture alignment: displaced Qualified Code(s): S72.142A - Displaced intertrochanteric fracture of left femur, initial encounter for closed fracture Code(s): S72.142A - Displaced intertrochanteric fracture of left femur, initial encounter for closed fracture Status: Acute Assessment and Plan: 07/14/23: hip and pelvis x-ray showing intratrochanteric fracture of the left hip Orthopedic surgery consult today Postop day 0 we an ORIF of left hip intertrochanteric fracture with cephalomedullary nail continue pain control continue Neurontin continue maintenance IV fluids at 75 mil per hour continue SCDs continue bed rest Continue Diane catheter until tomorrow PT and OT ordered for tomorrow 07/15/23: Patient is a moderate assist with PT and OT Diane discontinued Discontinue IV fluids, increase oral intake Continue pain control 06/29/23: No change to current treatment plan Plan for VIRAL tomorrow. (2) Osteoporosis: Qualifiers: Osteoporosis type: unspecified Presence of current pathological fracture: unspecified Qualified Code(s): M81.0 - Age-related osteoporosis without current pathological fracture Code(s): M81.0 - Age-related osteoporosis without current pathological fracture Status: Acute Assessment and Plan: 07/14/23: left hip and pelvis x-ray showed mild left hip osteoarthritis, total right hip arthroplasty in near anatomic alignment, intratrochanteric fracture of the proximal left femur 07/15/23: No change to current treatment plan (3) Hypertension: Qualifiers: Hypertension type: essential hypertension Qualified Code(s): I10 - Essential (primary) hypertension Code(s): I10 - Essential (primary) hypertension Status: Chronic Assessment and Plan: 07/14/23: blood pressures ranging 111/61 to 148/90 continue lisinopril 07/15/23: No change to current treatment plan (4) Depression: Qualifiers: Depression Type: unspecified Qualified Code(s): F32.A - Depression, unspecified Code(s): F32.9 - Major depressive disorder, single episode, unspecified Status: Chronic Assessment and Plan: 07/14/23: continue Zoloft 07/15/23: No change to current treatment Subjective Date/time seen: 07/17/23 08:23 Interval history: 07/14/23: This is a 73-year-old female who presented to the hospital on 07/13/2023 after sustaining a fall and complaining of left hip pain.? Workup in the hospital included a chest x-ray which was negative.? A hip and pelvis x-ray which showed intertrochanteric fracture of proximal left femur, mild left hip osteoarthritis, total right hip arthroplasty in near anatomic alignment.? Initial labs reveal a white blood cell count 12.3, sodium 133 otherwise unremarkable.? A UA was obtained which showed trace ketones, 2+ urine blood, 11-28 urine RBCs.? Patient was given 1 L of normal saline, neck acid, Ancef, Zofran, and morphine while in the ED. orthopedic surgery was consulted and patient was taken to the OR for ORIF of left hip intertrochanteric fracture with cephalomedullary nail. I seen her in PACU. She rates her pain as 8/10 and currently has chills with Bebeto hugger in place.? She denies any fever, nausea, vomiting, diarrhea, abdominal pain, chest pain, shortness a breath.? She is currently on room air, vital signs are stable, she has a Diane in place. 07/15/23: Labs today show a white blood cell count of 10.4, hemoglobin 9.3, sodium 136. Patient states her pain has been well controlled upon assessing. She was in the middle of doing her exercises and rates her pain 7-10.? Case coordination working on VIRAL placement. She will continue therapy and pain control here. 07/16/2023: Patient denies any new complaints today.? Patient reporting increased p
[2023-07-17] MEDS: MAGNESIUM OXIDE 400 MG TABLET PO (08:38)
[2023-07-17] MEDS: ENOXAPARIN 40 MG/0.4 ML SYRINGE SUB-Q (08:38)
[2023-07-17] MEDS: FAMOTIDINE 20 MG TABLET PO (08:39)
[2023-07-17] MEDS: GABAPENTIN 300 MG CAPSULE PO (08:39)
[2023-07-17] MEDS: oxyCODONE/ACETAMINOPHEN (*CRX) 10-325 MG TABLET 1 TAB PO (08:39)
[2023-07-17] MEDS: SENNA/DOCUSATE SODIUM TABLET 2 TAB PO (08:39)
[2023-07-17] MEDS: polyethylene glycoL 3350 17 GM POWD.PACK PO (08:39)
--- NOTE | 2023-07-17 09:27 | PC.NURSE ---
All medications starting at 0700 and after were administered by Jesika Bishop RN. Charted under Josef Ashraf RN.
--- NOTE | 2023-07-17 11:18 | PM.DS ---
DS: Admitting Diagnosis Discharge Date 07/17/2019 Admitting Diagnosis Left hip fracture fall DS: Discharge Diagnosis Discharge Diagnosis (1) Closed intertrochanteric fracture of left femur: Qualifiers: Encounter type: initial encounter Fracture alignment: displaced Qualified Code(s): S72.142A - Displaced intertrochanteric fracture of left femur, initial encounter for closed fracture Code(s): S72.142A - Displaced intertrochanteric fracture of left femur, initial encounter for closed fracture Status: Acute (2) Osteoporosis: Qualifiers: Osteoporosis type: unspecified Presence of current pathological fracture: unspecified Qualified Code(s): M81.0 - Age-related osteoporosis without current pathological fracture Code(s): M81.0 - Age-related osteoporosis without current pathological fracture Status: Acute (3) Hypertension: Qualifiers: Hypertension type: essential hypertension Qualified Code(s): I10 - Essential (primary) hypertension Code(s): I10 - Essential (primary) hypertension Status: Chronic (4) Depression: Qualifiers: Depression Type: unspecified Qualified Code(s): F32.A - Depression, unspecified Code(s): F32.9 - Major depressive disorder, single episode, unspecified Status: Chronic DS: Summary Hospital Course Hospital Course: ER on 07/01 fall and sustaining left hip injury. She stated she was carrying some things out of her house tripped and fell and landed on left hip. No loss of consciousness she did bump her head but no headache no neck pain no neurological deficit reported. On ED evaluation her left hip x-ray showed evidence of intertrochanteric fracture. Chest x-ray with no acute findings. Orthopedics was consulted. She underwent or if left hip intertrochanteric fracture with cephalomedullary nailing on 07/14/23. Postoperatively developed some anemia work with physical therapy she will be discharged to rehabilitation facility for further rehab she will be on Lovenox 30 days total for DVT prophylaxis. Follow-up with orthopedics as planned. Pain control with Percocet. Constipation management Senokot S and MiraLax. Weightbearing as tolerated with a walker. She did develop postoperative anemia within to be monitored. Time Spent with Patient Time attestation: Total time spent providing and/or coordinating discharge services: 32 minutes DS: Data Data Completed and Pending Labs on day of discharge: Labs from last 24 hours 07/17/23 07/16/23 05:33 13:20 WBC 6.8 9.8 RBC 2.59 L 2.91 L Hgb 8.2 L 9.5 L Hct 26.7 L 29.7 L MCV 103.1 H 102.1 H MCH 31.7 32.6 MCHC 30.7 L 32.0 RDW 13.1 13.1 Plt Count 199 208 MPV 9.5 9.0 Sodium 136 L 136 L Potassium 3.7 3.5 Chloride 103 102 Carbon Dioxide 32 H 27 Anion Gap 1 L 7 BUN 8 6 L Creatinine 0.40 L 0.50 L Estim Creat Clear Calc 90 74 Estimated GFR > 60 > 60 Glucose 103 138 H Calcium 8.8 8.9 Total Bilirubin 0.6 0.7 AST 30 30 ALT 15 17 Alkaline Phosphatase 60 57 Total Protein 6.0 L 7.0 Albumin 3.1 L 3.7 Procedures/Treatments: Procedure Note - Detailed Date of Procedure 07/14/23 Pre-op Diagnosis Left hip displaced intertrochanteric femur fracture Post-op Diagnosis Same Procedure Performed ORIF left hip intertrochanteric fracture with cephalomedullary nail. Surgeon Dionicio Blakely MD Anesthesia General Findings Good bone quality.? Stable fracture configuration after reduction.? Short nail used without distal locking.? Excellent bone quality. Description of Procedure The patient was given a general anesthetic, then carefully placed in fracture table.? Sterile prep and drape performed in the usual fashion.? Sterile curtain was used.? Gentle traction was utilized to reduce the fracture.? Fluoroscopy was used to confirm anatomic reduction and a proper placement of the implants.? A longitudinal incision was
[2023-07-17 14:00] VITALS: BP 144/86; PULSE 81; RESP 18; TEMP 35.9; O2SAT 98
== END 2023-07-17 14:19 | DRG 482 ==
LOC: ANHED 20:01 → ANH3MEDSUR 22:08
PROVIDERS: Nurse Practitioner Acute Care; Orthopaedic Surgery; Physician Assistant Surgical; Admitting Provider Internal Medicine; Emergency Provider Emergency Medicine; PCP Internal Medicine; Visit Provider Internal Medicine
PROC: 0QS736Z Reposition Left Upper Femur with Intramedullary Internal Fixation Device, Percutaneous Approach (ICD-10-PCS; CPT 27245; principal; 2023-07-14 15:30)
DX: S72.142A Displaced intertrochanteric fracture of left femur, initial encounter for closed fracture (principal); W01.0XXA Fall on same level from slipping, tripping and stumbling without subsequent striking against object, initial encounter; M81.0 Age-related osteoporosis without current pathological fracture; I10 Essential (primary) hypertension; D64.89 Other specified anemias; F32.9 Major depressive disorder, single episode, unspecified; E78.5 Hyperlipidemia, unspecified; M19.90 Unspecified osteoarthritis, unspecified site; I73.00 Raynaud's syndrome without gangrene; H01.006 Unspecified blepharitis left eye, unspecified eyelid; H01.003 Unspecified blepharitis right eye, unspecified eyelid; Z85.3 Personal history of malignant neoplasm of breast; Z96.652 Presence of left artificial knee joint; Z96.641 Presence of right artificial hip joint
CPT/HCPCS: 36415; 71045; 73502; 80048; 80053; 81001; 82948; 83735; 85025; 85027; 85610; 85730; 86850; 86900; 86901; 93005; 97110; 97116; 97161; 97165; 97535; 99199; 99285; A9270; C1769; J0690; J1170; J1650; J2270; J2405; J3010; J7030; J7120

== ENCOUNTER 2023-09-02 11:08 | Outpatient (CLI) | payer MEDICARE, OTHER, SELFPAY ==
[2023-09-02 18:25] LABS: Basophils Percent Auto 0.4 % (0.2-1.2); Eosinophils Absolute Auto 0.1 K/mm3 (0-0.3); Eosinophils Percent Auto 1.9 % (0-4.4); Hematocrit 43.3 % (37.0-47.0); Hemoglobin 13.3 g/dL (12.0-15.0); Immature Granulocyte Absolute 0.01 K/mm3 (0.00-0.031); Immature Granulocyte Percent A 0.1 % (0-0.5); Lymphocytes Absolute Auto 3.43 K/mm3 (0.9-3.2); Lymphocytes Percent Auto 46.7 % (18.3-44.2); Mean Corpuscular HGB Conc 30.7 g/dl (32-36); Mean Corpuscular Hemoglobin 30.4 pg (26-34); Mean Corpuscular Volume 99.1 fl (80-100); Mean Platelet Volume 8.9 fl (7.4-10.4); Monocytes Absolute Auto 0.7 K/mm3 (0.1-0.6); Monocytes Percent Auto 9.3 % (2.6-8.5); Neutrophils Absolute Auto 3.1 K/mm3 (1.3-6.7); Neutrophils Percent Auto 41.6 % (45.5-73.1); Platelet Count Result 359 k/mm3 (150-375); Red Blood Count 4.37 M/mm3 (4.2-5.4); Red Cell Distribution Width 13.7 % (11.5-14.5); White Blood Count 7.4 K/mm3 (4.5-10.0)
[2023-09-02 18:48] LABS: Alanine Aminotransferase 14 U/L (6-35); Albumin Level 4.1 g/dL (3.5-5.1); Alkaline Phosphatase 85 U/L (38-126); Anion Gap 5 mmol/L (4-12); Aspartate Amino Transferase 32 U/L (14-36); Bilirubin,Total 0.5 mg/dL (0.2-1.3); Blood Urea Nitrogen 11 mg/dL (7-17); Calcium 9.8 mg/dL (8.4-10.2); Carbon Dioxide 29 mmol/L (22-30); Chloride 103 mmol/L (98-107); Estimated Glomerular Filt Rate > 60; Glucose 90 mg/dL (65-110); Potassium 4.2 mmol/L (3.4-5.0); Sodium 137 mmol/L (137-145)
== END 2023-09-02 11:09 | disposition home or self-care (01) ==
LOC: ANHGOSHLAB 11:13
PROVIDERS: Internal Medicine; PCP Internal Medicine; Visit Provider Nurse Practitioner
DX: E55.9 Vitamin D deficiency, unspecified (principal); D64.9 Anemia, unspecified; I10 Essential (primary) hypertension
CPT/HCPCS: 36415; 80053; 82306; 85025

== ENCOUNTER 2023-09-09 08:12 | Outpatient (CLI) | payer MEDICARE, OTHER, SELFPAY ==
--- NOTE | ~2023-09-09 | XR_ITS ---
AP view of the pelvis and AP and lateral views of the left hip Clinical history: Pain COMPARISON: 08/10/2023 Findings: Patient is status post ORIF of the proximal left femur, with healing intertrochanteric frac ture present. Osseous and orthopedic hardware alignment is unchanged. Left hip joint space is preserv ed. Right hip arthroplasty in place. Soft tissues are unremarkable. Impression: Healing intertrochanteric fracture of the proximal left femur, status post prior ORIF. Stable osseous and orthopedic hardware alignment. Right hip arthroplasty in place. Reviewed, dictated and finalized at location . Impression: Healing intertrochanteric fracture of the proximal left femur, status post prio r ORIF. Stable osseous and orthopedic hardware alignment. Right hip arthroplasty in place.
== END 2023-09-09 08:13 | disposition home or self-care (01) ==
PROVIDERS: PCP Internal Medicine; Visit Provider Orthopaedic Surgery
DX: Z47.89 Encounter for other orthopedic aftercare (principal); S72.145D Nondisplaced intertrochanteric fracture of left femur, subsequent encounter for closed fracture with routine healing; X58.XXXD Exposure to other specified factors, subsequent encounter
CPT/HCPCS: 73502

== ENCOUNTER 2023-09-16 15:29 | Outpatient (CLI) | payer MEDICARE, OTHER, SELFPAY ==
[2023-09-16 19:15] LABS: Magnesium 1.7 mg/dL (1.6-2.3); Phosphorus 4.1 mg/dL (2.5-4.5)
== END 2023-09-16 15:30 | disposition home or self-care (01) ==
LOC: ANHGOSHLAB 15:31
PROVIDERS: PCP Internal Medicine; Visit Provider Nurse Practitioner
DX: M81.0 Age-related osteoporosis without current pathological fracture (principal)
CPT/HCPCS: 36415; 83735; 84100

== ENCOUNTER 2023-11-09 07:29 | Outpatient (CLI) | payer MEDICARE, OTHER, SELFPAY ==
--- NOTE | ~2023-11-09 | XR_ITS ---
AP view of the pelvis and AP and lateral views of the left hip Clinical history: Postprocedural pain COMPARISON: 09/09/2023 Findings: Status post ORIF of the proximal left femur with healing intertrochanteric fracture. Appear ance is essentially stable from prior exam. Left hip joint space is preserved. Right hip arthroplasty in place. Soft tissues are unremarkable. Impression: Status post ORIF of the proximal femur with healing intertrochanteric fracture. Appearance is essenti ally stable from prior exam. Right hip arthroplasty. Reviewed, dictated and finalized at location M. Impression: Status post ORIF of the proximal femur with healing intertrochanteric fracture. Appearance is essentially stable from prior exam. Right hip arthroplasty.
== END 2023-11-09 07:30 | disposition home or self-care (01) ==
PROVIDERS: PCP Nurse Practitioner; Visit Provider Orthopaedic Surgery
DX: Z87.81 Personal history of (healed) traumatic fracture (principal); Z98.890 Other specified postprocedural states
CPT/HCPCS: 73502

== ENCOUNTER 2024-01-05 11:55 | Outpatient (CLI) | payer MEDICARE, OTHER, SELFPAY ==
--- NOTE | ~2024-01-05 | XR_ITS ---
AP view of the pelvis and AP and lateral views of the left hip Clinical history: Postoperative COMPARISON: 01/01/2024 Findings: Right hip arthroplasty remains in place. Status post ORIF of intertrochanteric fracture of the proximal left femur, with stable osseous and orthopedic hardware alignment. Mild progressive inte rval healing of fracture with increased callus formation. There is mild degenerative change of the SI joints. Soft tissues are unremarkable. Soft tissues are unremarkable. Impression: Continued healing of left intertrochanteric proximal femoral fracture, status post ORIF. Stable right hip arthroplasty. Reviewed, dictated and finalized at location M. 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 Stable right hip arthroplasty.
== END 2024-01-05 11:56 | disposition home or self-care (01) ==
LOC: GOSHIMG 11:58
PROVIDERS: PCP Orthopaedic Surgery; Visit Provider Nurse Practitioner
DX: Z47.89 Encounter for other orthopedic aftercare (principal); S72.102D Unspecified trochanteric fracture of left femur, subsequent encounter for closed fracture with routine healing; X58.XXXD Exposure to other specified factors, subsequent encounter
CPT/HCPCS: 73502

== ENCOUNTER 2024-01-07 12:10 | Outpatient (CLI) | payer MEDICARE, OTHER, SELFPAY ==
--- NOTE | ~2024-01-07 | CT_ITS ---
EXAMINATION: CT shoulder LT wo con DATE: 01/07/2024 13:24 INDICATION: Unspecified fracture upper end of left humerus. TECHNIQUE: Computed tomography (CT) of the left shoulder was performed without intravenous contrast. Automated exposure control and iterative reconstruction technique were employed. The dose-length prod uct was 210.83 mGy-cm. COMPARISON: Left shoulder radiographs 01/01/2024 FINDINGS: Alignment is normal. There is a comminuted fracture of proximal left humerus. There is invo lvement of the greater tuberosity with less than 5 mm displacement. At the surgical neck, the main di stal fracture fragment demonstrates impaction, 2.0 cm anterior displacement, and 27 degrees posterior angulation. There is severe osteoarthritis of the glenohumeral joints and moderate osteoarthritis of acromioclavicular joint. IMPRESSION: 1. Comminuted two-part fracture of proximal left humerus. 2. Polyarticular osteoarthritis. Reviewed, dictated and finalized at location [] Y SPREADER
== END 2024-01-07 12:11 | disposition home or self-care (01) ==
PROVIDERS: PCP Orthopaedic Surgery; Visit Provider Nurse Practitioner
DX: S42.292A Other displaced fracture of upper end of left humerus, initial encounter for closed fracture (principal); X58.XXXA Exposure to other specified factors, initial encounter
CPT/HCPCS: 73200

== ENCOUNTER 2024-01-19 01:10 | Day surgery (SDC) | payer MEDICARE, OTHER, SELFPAY ==
--- NOTE | 2024-01-11 13:34 | PC.NURSE ---
Report to the Outpatient Waiting Room, entrance under the green pavilion located off [facility], at time _11 am on date _01/19/24 . Planned Procedure Time: _1:00pm .? Time changes happen often and if your time is changed the preop area will call you the afternoon before. - You and your visitor will be asked to self-screen and do not enter if you have any COVID symptoms. Please call surgeon if you need to reschedule. - A mask is optional within the hospital at this time. Patients may have clear liquids (water, carbonated beverages, clear teas, apple juice) until 3 hours prior to surgery( 10 am) with a maximum of 20 ounces. - No food from midnight until time of surgery and no smoking - Infants may have breast milk until 4 hours before surgery, formula 6 hours prior to surgery. - Children will be allowed to drink immediately following surgery.? If applicable, please bring a bottle or sippy cup to assist with drinking. Juice, water, soda, and popsicles are readily available.? For infants on formula, please bring formula the day of surgery.? Pacifiers are allowed. Take only the following medications with a SIP of water on the morning of surgery: gabapentin,hydrocodone if needed for pain DO NOT STOP ANY OF YOUR OTHER PRESCRIPTION MEDICATIONS PRIOR TO SURGERY EXCEPT THE FOLLOWING Medications to discontinue per physician ___hold all vitamins and supplements 3 days pre op.last dose 01/15/24 Please no make-up, nail kinyarwanda, hairspray, perfume, deodorant, or body powder the day of surgery.? No jewelry (including any body piercings) or valuables the day of surgery, leave them at home.? Please take a shower or bath the night before, or the morning of, surgery with an antibacterial soap.? Wear comfortable, loose fitting clothing.? Children are encouraged to wear pajamas. - Jewelry must be removed prior to entering the operating room.? Rings and piercings that are not removed may be cut off. - The hospital will not accept responsibility for valuables.? - Please leave all valuables, including medications, at home the day of surgery. If you are going home after surgery, a licensed tractor trailer moving van driver must drive you home.? - NO public transportation without another adult if you receive anesthesia. - We recommend that an adult stay with you for 24 hours following discharge. - We also recommend that you do not drive, make important decision, drink alcoholic beverages, or take any drugs that were not prescribed by your health care provider for at least 24 hours after your discharge time. For Pediatric surgeries, we recommend two adults accompany the child home. Follow any additional instructions given to you from your surgeon. Telephone instructions given to _patient and asked if any additional questions and then verbalized understanding. Patient advised to call surgeon office or pre surgery nurse liaison [phone] if any additional questions.
[2024-01-11 13:38] VITALS: BMI 21.4
[2024-01-19] VITALS (13 sets, daily range): BP systolic 112–173; BP diastolic 40–93; PULSE 65–96; RESP 12–20; TEMP 30.9–36.6; O2SAT 94–100
--- NOTE | ~2024-01-19 | XR_ITS ---
EXAMINATION: XR surgery orthopedic DATE: 01/19/2024 15:19 INDICATION: ORIF left proximal humeral fracture TECHNIQUE: 8 fluoroscopic images of the left shoulder were obtained during procedure performed by Dr. Blakely. Radiologist was not present for the imaging or procedure. The amount of fluoroscopy time used during this procedure was 2.4 minutes. COMPARISON: CT dated 01/17/2024 FINDINGS: Reduction and internal fixation of a previously displaced and angulated fracture at the surgical neck of the proximal left humerus with significant improvement in now in near anatomic alignment. The fra cture is affixed with a lateral plate and screws. Additional minimally displaced fracture involving t he greater tuberosity. It is unclear whether any of the fixation screws extend through this fragment. The plain screw fixation also spans a previously healed old mild fracture deformity at the proximal diaphysis. Moderate glenohumeral osteoarthritis. Short segment of catheter tubing projects over the g lenoid on a few of the images likely external to the patient. IMPRESSION: 1. Near-anatomic alignment post open reduction internal fixation of a comminuted two-part fracture of the proximal left humerus. Reviewed, dictated and finalized at location B. ER STACKER IMPRESSION: 1. Near-anatomic alignment post open reduction internal fixation of a comminute d two-part fracture of the proximal left humerus.
[2024-01-19] MEDS: ACETAMINOPHEN 500 MG TABLET 1000 MG PO (11:30)
[2024-01-19] MEDS: KETOROLAC 15 MG/ML VIAL (*BKC) IV PUSH (11:30)
[2024-01-19] MEDS: LACTATED RINGERS 1,000 ML 30 ML IV CONT (11:50)
--- NOTE | 2024-01-19 12:39 | P.PNAN_ITS ---
Anes - Initial Pre Proc Eval Procedure: Operation Date: 01/19/24 13:00 Proposed Procedures p Open Reduction Internal Fixation of Left Proximal Humerus Fracture - Dionicio Blakely MD Date/Time: 01/19/24 12:39 Surgeon: Dionicio Blakely MD Pre Op Diagnosis: surgical neck fracture of the left humerus Patient Data Age: 73 Gender: F Height: 1.63 m Weight: 56.1 kg Last Vital Signs Temp 97.2 F L 01/19/24 11:50 Pulse 65 01/19/24 11:50 Resp 14 01/19/24 11:50 BP 139/71 01/19/24 11:50 Pulse Ox 100 01/19/24 11:50 O2 Del Method Room Air 01/19/24 11:50 Allergies Allergy/AdvReac Type Severity Reaction Status Date / Time poison hayes extract Allergy Rash Verified 01/19/24 12:17 Sulfa (Sulfonamide Allergy Unknown Verified 01/19/24 12:17 Antibiotics) Home Medications Medication Instructions Recorded Confirmed Type magnesium oxide 500 mg PO DAILY 03/02/22 01/19/24 History potassium 99 mg tablet 99 mg PO DAILY 03/02/22 01/11/24 History acetaminophen 325 mg tablet 650 mg PO PRN PRN Pain (Scale 07/17/23 01/11/24 History (Tylenol) Score 1-3) lisinopril 20 mg tablet 20 mg PO HS #30 tabs 09/22/23 01/11/24 Rx sertraline 50 mg tablet 50 mg PO HS #90 tabs 09/27/23 01/11/24 Rx gabapentin 300 mg capsule 300 mg PO BID #180 caps 10/19/23 01/11/24 Rx cholecalciferol (vitamin D3) 50 50 mcg PO DAILY 01/11/24 01/11/24 History mcg (2,000 unit) tablet aspirin 81 mg tablet,delayed 81 mg PO BID 14 days #28 tabs 01/19/24 Rx release oxycodone-acetaminophen 5 mg-325 1 - 2 tablet PO Q4-6H PRN pain 7 01/19/24 Rx mg tablet days #30 tabs Patient hx anesthesia problems: none Family hx anesthesia problems: none Results Review: All pre-operative results and documents have been reviewed as part of the pre- operative evaluation. [facility] Past Medical History Medical History Acquired breast deformity Allergies Blepharitis of both eyes Breast cancer Breast implant rupture Chest wall pain Depression History of breast cancer History of fracture Hyperlipidemia Hypertension Numbness in both legs Osteoarthritis Osteoporosis Raynauds syndrome Sexual dysfunction Shingles Surgical History Surgical History History of arthroplasty of left knee History of bilateral mastectomy History of bunionectomy History of left knee replacement History of right hip replacement Status post right foot surgery Family History Family History Sibling Depression Hypertension Patient's sister is in good health Patient's brother is in good health Family history of allergic disorder Family history of alcoholism Family history of malignant neoplasm of breast in first degree relative Patient's sister is Mother Asthma Patient's mother is in good health Family history of allergic disorder Father Cerebrovascular accident Grandparent Family history of malignant neoplasm of male breast Other Family history of arthritis Family history of malignant neoplasm Social History Social History Smoking status: Never smoker Second hand tobacco smoke exposure: No Alcohol intake: current Drinks per week: 2 Alcohol use details: occasional Substance use: never Substance use type: does not use Do You Feel Safe in your Home?: Yes Lack of Transportation: No Lack of Food: Never True Current Housing: I Have Housing Concerned About Future Housing: No Difficulty Paying Gas/Electric Bills: No Difficulty Paying for Meds: No Currently Unemployed: No Education: Bachelor's Degree Difficulty w/ Childcare or Family Care: No Living arrangements: with family Gender identity (if verbalized by the patient): Female Spiritual care concerns: No Anes - Eval Final PreProcedure Day of Procedure 01/19/24 12:39 Patient weight: normal Heart: regular rate and rhythm Lungs: clear to auscultation Airway: Mallampati scale class II Neurological: alert and oriented Last oral intake: >/= 8 hours ASA classification: III Emergent: no Anesthetic plan: proceed Anesthesia type and monitoring: general ETT and standard monitoring Results Review: All pre-operative results and documents have been reviewed as part of the pre-operative evaluation. Informed Consent: The patient's anesthetic plan and its attendant risks and benefits were discussed with the patient/family/POA. Questions were solicited and answers provided to the satisfaction of the patient/family/POA.
--- NOTE | 2024-01-19 12:39 | WPDHPUPDATE1 ---
History and Physical Update Update Date/Time: 01/19/24 12:39 History and Physical has been reviewed, including an updated exam of the patient. There are NO changes in the patient's condition. Risks, benefits, and alternatives have been discussed and questions answered. Patient agrees to proceed with procedure.
[2024-01-19] MEDS: ceFAZolin 2 GM/D5W 50 ML 2 GM/50 ML BAG IVPB ×2 (12:45→20:20)
[2024-01-19] MEDS: TRANEXAMIC ACID 1,000 MG/10 ML AMPUL 1000 MG IV PUSH (13:43)
[2024-01-19] MEDS: BUPIVACAINE/EPINEPHRINE 0.5% 50 ML VIAL 20 ML INFILTRATE (13:48)
--- NOTE | 2024-01-19 15:36 | W.PM.PROC2 ---
Procedure Note - Detailed Date of Procedure 01/19/24 Pre-op Diagnosis Displaced surgical neck fracture of the left humerus Post-op Diagnosis Same Procedure Performed ORIF left proximal humerus displaced surgical neck fracture. Surgeon Dionicio Blakely MD Anesthesia General Indications Greater than 1 cm posterior displacement and 45? angulation. History of previous proximal shaft fracture treated closed. Findings Satisfactory bone quality. Stable fixation with the Nannette ALPS proximal humerus plating system. Distal position plate utilized. The plate seating was only mildly affected by the previous healed fracture. Description of Procedure Preoperative antibiotics were given. A general anesthetic was administered. The patient was carefully placed in the beach chair position. The head and neck were carefully supported. The contralateral arm was padded. The shoulder was prepped and draped in usual sterile fashion and the articulating arm navas was used. A longitudinal incision was created over the anterior shoulder. The deltopectoral interval was dissected. The fracture was identified. The biceps tendon was used for orientation. The fracture was cleared of debris and irrigated. Biplanar fluoroscopy was used throughout the procedure to confirm anatomic reduction and appropriate placement of all implants. Reduction was performed with manipulation. Fracture was partially healed. The transverse plane was opened with the Quevedo elevator and the distal fragment was manipulated. The plate was applied and the central wire was used to confirm appropriate placement. A compression was screw was placed in the dynamic hole. The proximal locking pegs were placed. Careful attention was paid to the length of the screws to avoid penetration. Shaft locking screws were then placed. Supplemental suture fixation was placed in the rotator cuff. The anterior suture was tied through the plate. The wound was irrigated and closed with interrupted #1 Vicryl suture followed by 2-0 strata fix, 3-0 strata fix and Steri-Strips. A sterile dressing was applied. The patient was extubated and brought to the recovery room in stable condition. There were no complications. Implants Nannette ALPS proximal humerus plating system. Estimated Blood Loss 250 Drains No Packing No Pathology None sent Complications No immediate complications Condition Stable Disposition PACU [facility] Billing Surgery - Charge Forward: Surgery Billing
--- NOTE | 2024-01-19 17:36 | PM.IMCN ---
Assessment and Plan Assessment and plan (1) Fracture of surgical neck of humerus: Qualifiers: Encounter type: initial encounter Fracture type: closed Fracture morphology: 2-part Fracture alignment: displaced Laterality: left Qualified Code(s): S42.222A - 2-part displaced fracture of surgical neck of left humerus, initial encounter for closed fracture Code(s): S42.213A - Unspecified displaced fracture of surgical neck of unspecified humerus, initial encounter for closed fracture Status: Acute Assessment and Plan: Patient is postop day 0 from an open reduction internal fixation the left proximal humerus fracture with Dr. Blakely continue incentive spirometry continue neurovascular checks continue PT and OT Case coordination consulted for possible rehab needs considering her frequent falls and gait disturbance continue pain and nausea control continue SCDs (2) Gait abnormality: Code(s): R26.9 - Unspecified abnormalities of gait and mobility Status: Acute Assessment and Plan: PT and OT Case coordination consulted (3) Depression: Qualifiers: Depression Type: unspecified Qualified Code(s): F32.A - Depression, unspecified Code(s): F32.9 - Major depressive disorder, single episode, unspecified Status: Chronic Assessment and Plan: continue Zoloft (4) Hypertension: Qualifiers: Hypertension type: essential hypertension Qualified Code(s): I10 - Essential (primary) hypertension Code(s): I10 - Essential (primary) hypertension Status: Chronic Assessment and Plan: blood pressure ranging continue lisinopril (5) Neuropathy: Code(s): G62.9 - Polyneuropathy, unspecified Status: Acute Assessment and Plan: continue Neurontin HPI Date of Consult Consult date: 01/19/24 Requesting Physician: Dionicio Blakely MD Primary Care Provider: Linda Daily NP Consult Narrative Narrative: Leah Sheehan is a 73 year old female with a significant past medical history of breast cancer status post bilateral mastectomy with reconstructive surgery, depression, hyperlipidemia, Neuropathy,hypertension, osteoarthritis, osteoporosis, Raynaud syndrome who presented to the hospital for ORIF of left proximal humerus displaced surgical neck fracture with Dr. Blakely today. Her original injury occurred on December 31 when she suffered a fall on to her left side and then started complaining of left shoulder pain and weakness. CT scan of the left shoulder without contrast on 01/07/2024 showed comminuted 2 part fracture of the proximal left humerus, polyarticular osteoarthritis. She has history a subtle valgus deformity of the shaft from a fracture to her humerus over 10 years ago that was treated non operatively. She also has history of frequent falls and gait disturbance related to neuropathy in about 6 months ago had a left intratrochanteric fracture treated with IM nail. Patient normally walks with a cane. patient denies. patient endorses. We were consulted for medical management while inpatient. Review of Systems Review of Systems: All systems reviewed & are unremarkable except as noted in HPI and below Constitutional: Constitutional: Reports as per HPI and Reports no additional constitutional complaints Eyes: Eyes: Reports as per HPI and Reports no additional eye complaints ENT: Reports system reviewed and no additional complaints, except as documented and Reports as per HPI Cardiovascular: Cardiovascular: Reports as per HPI and Reports no additional cardiovascular complaints Respiratory: Respiratory: Reports as per HPI and Reports no additional respiratory complaints Gastrointestinal: Gastrointestinal: Reports as per HPI and Reports no additional gastrointestinal complaints Genitourinary: Genitourinary: Reports no additional female genitourinary complaints and Reports as per HPI Musculoskeletal: Musculoskeletal: Reports no additional musculoskeletal complaints and Reports as per HPI Integumentary/Breasts: Skin/Breast: Reports system reviewed and no additional complaints, except as docu and Reports as per HPI Neurologic: Reports system reviewed and no additional complaints, except as documented and Reports as per HPI Psychiatric: Psychiatric: Reports no additional psychiatric complaints and Reports as per HPI PMFSH Past Medical History Medical History Acquired breast deformity Allergies Blepharitis of both eyes Breast cancer Breast implant rupture Chest wall pain Depression History of breast cancer History of fracture Hyperlipidemia Hypertension Numbness in both legs Osteoarthritis Osteoporosis Raynauds syndrome Sexual dysfunction Shingles Surgical History Surgical History History of arthroplasty of left knee History of bilateral mastectomy History of bunionectomy History of left knee replacement History of right hip replacement Status post right foot surgery Family History Family History Sibling Depression Hypertension Patient's sister is in good health Patient's brother is in good health Family history of allergic disorder Family history of alcoholism Family history of malignant neoplasm of breast in first degree relative Patient's sister is Mother Asthma Patient's mother is in good health Family history of allergic disorder Father Cerebrovascular accident Grandparent Family history of malignant neoplasm of male breast Other Family history of arthritis Family history of malignant neoplasm Social History Social History Smoking status: Never smoker Second hand tobacco smoke exposure: No Alcohol intake: current Drinks per week: 2 Alcohol use details: occasional Substance use: never Substance use type: does not use Do You Feel Safe in your Home?: Yes Lack of Transportation: No Lack of Food: Never True Current Housing: I Have Housing Concerned About Future Housing: No Difficulty Paying Gas/Electric Bills: No Difficulty Paying for Meds: No Currently Unemployed: No Education: Bachelor's Degree Difficulty w/ Childcare or Family Care: No Living arrangements: with family Gender identity (if verbalized by the patient): Female Spiritual care concerns: No Meds Home Medications and Allergies Home Medications Medication Instructions Recorded Confirmed Type magnesium oxide 500 mg PO DAILY 03/02/22 01/19/24 History potassium 99 mg tablet 99 mg PO DAILY 03/02/22 01/11/24 History acetaminophen 325 mg tablet 650 mg PO PRN PRN Pain (Scale 07/17/23 01/11/24 History (Tylenol) Score 1-3) lisinopril 20 mg tablet 20 mg PO HS #30 tabs 09/22/23 01/11/24 Rx sertraline 50 mg tablet 50 mg PO HS #90 tabs 09/27/23 01/11/24 Rx gabapentin 300 mg capsule 300 mg PO BID #180 caps 10/19/23 01/11/24 Rx cholecalciferol (vitamin D3) 50 50 mcg PO DAILY 01/11/24 01/11/24 History mcg (2,000 unit) tablet aspirin 81 mg tablet,delayed 81 mg PO BID 14 days #28 tabs 01/19/24 Rx release oxycodone-acetaminophen 5 mg-325 1 - 2 tablet PO Q4-6H PRN pain 7 01/19/24 Rx mg tablet days #30 tabs Allergies Allergy/AdvReac Type Severity Reaction Status Date / Time poison hayes extract Allergy Rash Verified 01/19/24 12:17 Sulfa (Sulfonamide Allergy Unknown Verified 01/19/24 12:17 Antibiotics) Vital Signs Vital Signs - 24 hr 01/19/24 11:50 11/21/24 15:23 01/19/24 15:35 Temperature 97.2 F L 97.0 F L Pulse Rate 65 92 88 Respiratory Rate 14 16 12 Blood Pressure 139/71 145/64 H 157/84 H Pulse Oximetry 100 100 96 Oxygen Delivery Room Air Simple Face Mask Room Air Oxygen Flow Rate 8 01/19/24 15:45 01/19/24 16:00 01/19/24 16:15 Temperature Pulse Rate 89 90 89 Respiratory Rate 18 18 18 Blood Pressure 157/84 H 162/88 H 164/89 H Pulse Oximetry 99 99 100 Oxygen Delivery Room Air Room Air Room Air Oxygen Flow Rate 01/19/24 16:30 01/19/24 16:45 Temperature Pulse Rate 91 92 Respiratory Rate 19 20 Blood Pressure 173/93 H 166/80 H Pulse Oximetry 98 94 Oxygen Delivery Room Air Room Air Oxygen Flow Rate Exam Narrative: General: In no acute distress, well nourished Head: atraumatic, no encephalopathy Eyes: EOMI, PERRLA, sclera clear ENT: moist mucous membranes, nasal passages clear Neck: supple, no JVD, no adenopathy, trachea midline Cardiac: Normal S1 and S2. No murmur, gallops or friction rubs, peripheral pulses intact. Respiratory: Lungs clear to auscultation, no adventitious lung sounds Gastrointestinal: soft, non-distended, non-tender, normoactive bowel sounds. : voiding without difficulty. Extremities: moves all extremities well, no edema, good ROM, strength 5/5 Skin: clean, dry, intact. No wounds or lesions. Neuro: Alert and oriented x4, cranial nerves intact, no neuro deficits. Psych: normal mood, normal affect, interactive Quality VTE Prophylaxis VTE prophylaxis: mechanical ordered Hospitalist [facility] Advance Care Plan I have confirmed that the patient's Advanced Care Plan is present, code status is documented, or surrogate decision maker is listed in patient medical record.: Yes Medication Reconciliation I have utilized all available resources to obtain, update and review the patients current medications (includes all prescriptions, OTC, herbals, cannabis, and nutritional supplements).: Yes
--- NOTE | 2024-01-19 17:44 | ADMGEN ---
This patient, Leah Sheehan, was admitted to Medical Room 340-01. Patient/family oriented to hospital policies and general routines including ID bracelet, bed and alarms, visiting hours, pain management, procedures, bathroom and other care routines, personal items, smoking policy, room service/diet, and visiting hours. Information on how to activate the Rapid Response Team has been discussed. Patient/Family are encouraged to report perceived risks to care and to ask questions if they do not understand what they are told or what they should do.
[2024-01-19] MEDS: ASPIRIN 81 MG ENTERIC TABLET PO (18:06)
[2024-01-19] MEDS: GABAPENTIN 300 MG CAPSULE PO (20:18)
[2024-01-19] MEDS: SERTRALINE HCL 50 MG TABLET PO (20:18)
[2024-01-19] MEDS: FAMOTIDINE 20 MG TABLET PO (20:19)
[2024-01-19] MEDS: lisinopriL 20 MG TABLET PO (20:19)
[2024-01-19] MEDS: oxyCODONE/ACETAMINOPHEN (*CRX) 5-325 MG TABLET 1 TABLET PO (22:59)
[2024-01-20 02:38] VITALS: BP 107/49; PULSE 85; RESP 20; TEMP 36.4; O2SAT 98
[2024-01-20] MEDS: HYDROmorphone HCL INJ (*CRX) 1 MG/ML SYR 0.5 MG IV PUSH ×2 (02:49→05:29)
[2024-01-20] MEDS: ceFAZolin 2 GM/D5W 50 ML 2 GM/50 ML BAG IVPB ×2 (05:24→12:17)
[2024-01-20 06:07] LABS: Basophils Percent Auto 0.3 % (0.2-1.2); Eosinophils Percent Auto 0.1 % (0-4.4); Hematocrit 30.7 % (37.0-47.0); Hemoglobin 9.5 g/dL (12.0-15.0); Immature Granulocyte Absolute 0.06 K/mm3 (0.00-0.031); Immature Granulocyte Percent A 0.4 % (0-0.5); Lymphocytes Percent Auto 21.2 % (18.3-44.2); Mean Corpuscular HGB Conc 30.9 g/dl (32-36); Mean Corpuscular Volume 103.4 fl (80-100); Mean Platelet Volume 8.9 fl (7.4-10.4); Monocytes Absolute Auto 1.2 K/mm3 (0.1-0.6); Monocytes Percent Auto 8.7 % (2.6-8.5); Neutrophils Absolute Auto 9.5 K/mm3 (1.3-6.7); Neutrophils Percent Auto 69.3 % (45.5-73.1); Platelet Count Result 394 k/mm3 (150-375); Red Blood Count 2.97 M/mm3 (4.2-5.4); Red Cell Distribution Width 12.6 % (11.5-14.5); White Blood Count 13.7 K/mm3 (4.5-10.0)
[2024-01-20 06:21] LABS: Anion Gap 3 mmol/L (4-12); Blood Urea Nitrogen 16 mg/dL (7-17); Carbon Dioxide 27 mmol/L (22-30); Chloride 103 mmol/L (98-107); Estimated CRCL calculation 86 ml/min; Estimated Glomerular Filt Rate > 60; Glucose 100 mg/dL (65-110); Potassium 4.2 mmol/L (3.4-5.0); Sodium 133 mmol/L (137-145)
[2024-01-20 06:38] VITALS: BP 110/65; PULSE 86; RESP 20; TEMP 36.6; O2SAT 98
[2024-01-20 08:00] VITALS: BP 104/57; PULSE 85; RESP 20; TEMP 37.3; O2SAT 94
[2024-01-20] MEDS: ASPIRIN 81 MG ENTERIC TABLET PO (08:23)
[2024-01-20] MEDS: oxyCODONE/ACETAMINOPHEN (*CRX) 10-325 MG TABLET 1 TAB PO (08:24)
[2024-01-20] MEDS: SENNA/DOCUSATE SODIUM TABLET 2 TAB PO (08:24)
[2024-01-20] MEDS: GABAPENTIN 300 MG CAPSULE PO (08:24)
[2024-01-20] MEDS: CHOLECALCIFEROL 1,000 UNITS TABLET 2000 UNITS PO (08:24)
[2024-01-20] MEDS: FAMOTIDINE 20 MG TABLET PO (08:25)
[2024-01-20] MEDS: polyethylene glycoL 3350 17 GM POWD.PACK PO (08:25)
--- NOTE | 2024-01-20 09:21 | PM.DS ---
DS: Admitting Diagnosis Discharge Date 01/20/24 Admitting Diagnosis Proximal humerus fracture. DS: Discharge Diagnosis Discharge Diagnosis (1) Closed fracture of left proximal humerus: Qualifiers: Encounter type: subsequent encounter Fracture healing: with routine healing Fracture morphology: unspecified fracture morphology Qualified Code(s): S42.202D - Unspecified fracture of upper end of left humerus, subsequent encounter for fracture with routine healing Code(s): S42.202A - Unspecified fracture of upper end of left humerus, initial encounter for closed fracture Status: Acute Assessment and Plan: Postop day 1: ORIF left proximal humerus displaced surgical neck fracture. Patient tolerated procedure well. No complications. Pain manageable with pain medication. No numbness or tingling. We had a lengthy discussion regarding postoperative wound care, limitations, expectations, and exercises. Patient shows good understanding. She has had initial physical therapy and is tolerating it well. Patient would like to be discharged home and does not think she needs rehab. DVT prophylaxis: 81 mg baby aspirin b.i.d. for 14 days. Pain medication: Percocet. Instructed patient to take an iron supplement over the counter to help with the blood loss during surgery. Patient has followup appointment with Dr. Blakely in 2 weeks. DS: Summary Hospital Course Reason for hospitalization: Proximal humerus fracture. Hospital Course: Patient tolerated procedure well. No complications. Time Spent with Patient Time attestation: Total time spent providing and/or coordinating discharge services: Exam Narrative: Normal weight 73 y/o Female. Resting comfortably in chair. Wearing sling. Dressing dry and intact with no drainage. Moderate swelling. Moderate ecchymosis. No erythema. No hematoma. Range of motion limited due to pain. Calf nontender. Neurologic status intact. No varicosities. Distal pulses palpable. DS: Data Data Completed and Pending Labs on day of discharge: Labs from last 24 hours 01/20/24 05:21 WBC 13.7 H RBC 2.97 L Hgb 9.5 L Hct 30.7 L MCV 103.4 H MCH 32.0 MCHC 30.9 L RDW 12.6 Plt Count 394 H D MPV 8.9 Immature Gran % (Auto) 0.4 Neut % (Auto) 69.3 Lymph % (Auto) 21.2 [place] % (Auto) 8.7 H Eos % (Auto) 0.1 Baso % (Auto) 0.3 Lymph # (Auto) 2.90 [place] # (Auto) 1.2 H Eos # (Auto) 0.0 Baso # (Auto) 0.0 Abs Immat Gran (auto) 0.06 H Absolute Neuts (auto) 9.5 H Absolute Nucleated RBC 0.000 Nucleated RBC % 0.0 Sodium 133 L Potassium 4.2 Chloride 103 Carbon Dioxide 27 Anion Gap 3 L BUN 16 Creatinine 0.40 L Estim Creat Clear Calc 86 Estimated GFR > 60 Glucose 100 Calcium 9.0 Discharge Plan Discharge Patient Disposition: Home, Self-Care Discharge Instructions: See green instruction sheets Stand Alone Forms: General Discharge Instructions Follow-up/Referrals: Vika Holley PA [Physician Drying Equipment Operator] - Discharge Medications: New aspirin 81 mg tablet,delayed release (DR/EC) 81 mg PO BID 14 Days Qty: 28 0RF oxycodone-acetaminophen 5-325 mg tablet 1 - 2 tablet PO Q4-6H PRN (Reason: pain) 7 Days Qty: 30 0RF Continued potassium 99 mg Tablet 99 mg PO DAILY magnesium oxide 500 mg Tablet 500 mg PO DAILY cholecalciferol (vitamin D3) 50 mcg (2,000 unit) Tablet 50 mcg PO DAILY lisinopril 20 mg tablet 20 mg PO HS Qty: 30 5RF sertraline 50 mg tablet 50 mg PO HS Qty: 90 1RF gabapentin 300 mg capsule 300 mg PO BID Qty: 180 1RF Rx Instructions: TAKE ONE CAPSULE BY MOUTH 2 TIMES A DAY. acetaminophen [Tylenol] 325 mg Tablet 650 mg PO PRN MDD 4000 mg daily from all sources PRN (Reason: Pain (Scale Score 1-3)) Discontinued hydrocodone-acetaminophen 5-325 mg tablet 1 tablet PO PRN PRN (Reason: Pain)
--- NOTE | 2024-01-20 10:42 | WPDANESPN ---
Anes - Prog Note Post-Op Date/Time: 01/20/24 10:42 Cardiovascular status: normal Respiratory status: normal Airway patency: baseline Mental status: baseline Post-Op hydration status: normal Vital Signs: Last Vital Signs Temp 37.3 C 01/20/24 08:00 Pulse 85 01/20/24 08:00 Resp 20 01/20/24 08:00 BP 104/57 L 01/20/24 08:00 Pulse Ox 94 01/20/24 08:00 O2 Del Method Room Air 01/20/24 09:16 O2 Flow Rate 8 01/19/24 15:23 Pain Score (VAS): 05/07 I/O: Intake & Output 01/19/24 01/20/24 01/20/24 23:59 07:59 15:59 Intake Total 1050 450 120 Balance 1050 450 120 Laboratory Tests 01/20/24 05:21 01/20/24 05:21 01/20/24 05:21 WBC 13.7 H RBC 2.97 L Hgb 9.5 L Hct 30.7 L MCV 103.4 H MCH 32.0 MCHC 30.9 L RDW 12.6 Plt Count 394 H D MPV 8.9 Immature Gran % (Auto) 0.4 Neut % (Auto) 69.3 Lymph % (Auto) 21.2 [place] % (Auto) 8.7 H Eos % (Auto) 0.1 Baso % (Auto) 0.3 Lymph # (Auto) 2.90 [place] # (Auto) 1.2 H Eos # (Auto) 0.0 Baso # (Auto) 0.0 Abs Immat Gran (auto) 0.06 H Absolute Neuts (auto) 9.5 H Absolute Nucleated RBC 0.000 Nucleated RBC % 0.0 Sodium 133 L Potassium 4.2 Chloride 103 Carbon Dioxide 27 Anion Gap 3 L BUN 16 Creatinine 0.40 L Estim Creat Clear Calc 86 Estimated GFR > 60 Glucose 100 Calcium 9.0 Post-procedural complaints: none Patient Feedback: Patient satisfied with anesthetic care.
[2024-01-20] MEDS: oxyCODONE/ACETAMINOPHEN (*CRX) 5-325 MG TABLET 1 TABLET PO (14:22)
== END 2024-01-20 14:23 | disposition home health service (06) ==
LOC: ANHSURGERY 11:16 → ANH3MED 16:56
PROVIDERS: Physician Assistant Surgical; PCP Nurse Practitioner; Visit Provider Orthopaedic Surgery
PROC: (CPT 23615; principal; 2024-01-19 13:00)
DX: S42.222A 2-part displaced fracture of surgical neck of left humerus, initial encounter for closed fracture (principal); W19.XXXA Unspecified fall, initial encounter; R26.9 Unspecified abnormalities of gait and mobility; I10 Essential (primary) hypertension; G62.9 Polyneuropathy, unspecified; F32.9 Major depressive disorder, single episode, unspecified
CPT/HCPCS: 23615; 36415; 80048; 85025; 97110; 97140; 97161; 97166; 97535; 99199; A9270; C1713; J0690; J1100; J1171; J1885; J2003; J2405; J3010; J7120

== ENCOUNTER 2024-04-05 09:56 | Outpatient (CLI) | payer MEDICARE, OTHER, SELFPAY ==
--- OUTSIDE RECORDS SUMMARY | 2024-04-05 10:22 | XMS_ITS | Encounter Summary ---
Author Organization [facility] Address 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
--- OUTSIDE RECORDS SUMMARY | 2024-04-05 10:22 | XMS_ITS | Referral Summary ---
Author Organization [facility] [employer] Address [address] [place] [address] Care Team Providers Care Vp Corporate Development Name Role Phone Elvis Mata DO Primary Care Provider [phone] Source Comments [facility],non-[facility] health Affiliates and Associated Physician Practices is amultiple site organization consisting of ambulatory clinics and hospital sitesin [place], [place], [place] and [place]. This disclosure is being madepursuant to the Care Everywhere program and may not contain all information available regarding this patient. Last updated 17.[facility] [employer] Social History Tobacco Use Types Packs/Day Years Used Date Smoking Tobacco: Never Assessed Sex and Gender Information Value Date Recorded Sex Assigned at Not on file Gender Identity Not on file Sexual Orientation Not on file Plan of Treatment Not on file Care Teams Vp Corporate Development Relationship Specialty Start Date End Date Elvis Mata DO PCP - General 05/12/22
--- OUTSIDE RECORDS SUMMARY | 2024-04-05 10:22 | XMS_ITS | Clinical Summary ---
Author Organization [facility] Address [address] [place] [address] Care Team Providers Care Gas Inspector Name Role Phone Elvis Mata DO Primary Care Provider [phone] Allergies Active Allergy Reactions Criticality Noted Date Comments Sulfa (Sulfonamide Antibiotics) Unknown 07/2022 Medications RESTASIS MULTIDOSE 0.05 % drops Administer 1 drop into both eyes 2 (two) times a day. 3 8 Active gabapentin (NEURONTIN) 300 mg capsule Take 1 capsule (300 mg total) by mouth 3 (three) times a day 0 8 Active sertraline (ZOLOFT) 50 mg tablet Take 1 tablet (50 mg total) by mouth daily Active lisinopril (PRINIVIL,ZESTR IL) 20 mg tablet Take 1 tablet (20 mg total) by mouth daily Active calcium carbonate-vitam in D3 1500 mg (600 mg elemental) -200 units per tablet Take 2 tablets by mouth daily Active potassium gluconate 2.5 mEq tablet Take 20 mEq by mouth daily. Active uvaoo-7-lsr-epa -dpa-fish oil 1,050-1,200 mg capsuleIndicati ons:stop 5 days before surgery Take 1 capsule by mouth daily Active biotin 2,500 mcg capsule Take 2,500 mcg by mouth daily. Active glucosam-chond- plw6-O-mvty-bor [id number] mg tablet Take 1 tablet by mouth daily. Active melatonin tablet Take 10 tablets (10 mg total) by mouth nightly Active oxyCODONE-aceta minophen (PERCOCET) 5-325 mg per tabletIndicatio ns:Pain Take 2 tablets by mouth every 4 (four) hours as needed for pain. 80 tablet 8 Active Additional Information Patient not taking.Reported on 04/19/2023 Osphena 60 mg tablet Take 1 tablet by mouth daily 3 Active cyclobenzaprine (FLEXERIL) 5 mg tabletIndicatio ns:Neck muscle strain, initial encounter Take 1 tablet (5 mg total) by mouth 2 (two) times a day as needed for muscle spasms 10 tablet 4 Active Active Problems Problem Noted Date Diagnosed Date Methicillin susceptible Staphylococcus aureus in fection 02/02/2016 Osteoarthritis of knee 02/02/2016 Pyogenic arthritis of knee 09/24/2015 Surgical History Surgery Date Site/Laterality Comments BREAST SURGERY Bilateral Mastectomy TOTAL HIP ARTHROPLASTY Right Hip Fx. FRACTURE SURGERY Left Arm Medical History Medical History Date Comments Hypertension GERD (gastroesophageal reflux disease) Neuropathy (CMS/HCC) LE's Arthritis Cancer (CMS/HCC) ([facility]) Right Silvia ast, Mastectomy with Lymph Nodes Social History Tobacco Use Types Packs/Day Years Used Date Smoking Tobacco: Never Smokeless Tobacco: Never Tobacco Cessation:Counseling Given: Not Answered Alcohol Use Standard Drinks/Week Comments Yes 0 (1 standard drink = 0.6 oz pur e alcohol) Comments Unknown Sex and Gender Information Value Date Recorded Sex Assigned at Not on file Legal Sex Female 8:39 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 Gender Identity Not on file Sexual Orientation Not on file Obstetrics History Last Filed Vital Signs Vital Sign Reading Time Taken Comments Blood Pressure 138/86 04/19/2023 10:00 AM GANG 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 Pulse 75 04/19/2023 10:00 AM GANG 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 Temperature 36.7 C (98.1 F) 04/19/2023 10:00 AM GANG 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 Respiratory Rate 16 04/19/2023 10:00 AM GANG 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 Oxygen Saturation 99% 04/19/2023 10:00 AM GANG 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 Inhaled Oxygen Concentration - - Weight 59.4 kg (131 lb) 04/19/2023 10:00 AM GANG 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 Height 160 cm (5' 2.99 ) 03/31/2022 8:10 AM GANG 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 Body Mass Index 23.21 03/31/2022 8:10 AM GANG 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 Plan of Treatment Health Maintenance Due Date Last Done Comments Breast Cancer Screening-Mammogram 1949 Colon Cancer Screening-Colonoscopy 1950 Depression Screening 1950 Fall Risk Assessment 1950 Hepatitis C Screening 1950 Osteoporosis Screening-Bone Density Scan 1949 DTaP/Tdap/Td Vaccine (1 - Tdap) 1960 Hepatitis B Screening 05/01/1967 Zoster Vaccine (1 of 2) 05/01/1999 Pneumococcal vaccine 65+ (1 of 1 - PCV) 2014 Well Visit 65+ 2014 Influenza Vaccine (#1) 2023 Medical Devices Implanted Type Area Orthophoto Tech/[place] Device Identifier Shelf Expiration Date Model / Serial / Lot Mtp Plate Implanted:Qty: 1 on 07/15/2017 by Lucia Cortez DPM at [facility] Plate Right: Toes [employer] [id number] / / Description:Great toe Max Vpc Screw Implanted:Qty: 1 on 07/15/2017 by Lucia Cortez DPM at [facility] Screw Right: Toes [employer] [id number] / / Description:GREAT TOE Peg Fixation Dvr L14 Mm Od2.5 Mm Knee Thread Multidirectional Nonsterile - [id number] Implanted:Qty: 1 on 07/15/2017 by Lucia Cortez DPM at [facility] Screw Right: Toes [employer] [id number] / / Description:GREAT TOE Twistoff Screws Implanted:Qty: 1 on 07/15/2017 by Lucia Cortez DPM at [facility] Screw Right: Metatarsal [employer] [id number] / / Description:3RD TOE Libby Wire Implanted:Qty: 2 on 07/15/2017 by Lucia Cortez DPM at [facility] Wire Right: Metatarsal [employer] 01/27/2026 [id number] / [id number] / [id number] Description:SECOND AND THIRD TOE Libby Wire .035 Implanted:Qty: 1 on 07/15/2017 by Lucia Cortez DPM at [facility] Wire Right: Metatarsal [employer] 06/28/2023 [id number] / / [id number] Description:2ND TOE Peg Fixation F3 Full Thread L14 Mm Od2.5 Mm Foot Locking Screw Fragment Plate System - [id number] Implanted:Qty: 3 on 07/15/2017 by Lucia Cortez DPM at [facility] Right: Toes [employer] FP14 / / Description:GREAT TOE Insurance MEDICARE [facility] MEDICARE [employer]ICARE [facility] [facility] Care Teams Gas Inspector Relationship Specialty Start Date End Date Elvis Mata DO PCP - General 07/13/17
--- OUTSIDE RECORDS SUMMARY | 2024-04-05 10:22 | XMS_ITS | Clinical Summary ---
Author Organization [facility] Address [address] Rudolph: Epic Prelude ADT POLY MUSE [address] Care Team Providers Care Promotional Representative Name Role Phone Unavailable Primary Care Provider Unavailabl e Allergies Active Allergy Reactions Criticality Noted Date Comments Sulfa (Sulfonamide Antibiotics) Unknown 07/2022 Medications risedronate (ActoneL) 35 mg tablet Take 1 tablet by mouth once weekly. 12 Tablet 3 3 Active sertraline (ZOLOFT) 50 mg tablet Take 1 Tablet (50 mg) by mouth daily at bedtime. 90 Tablet 3 05/05/2023 5:22 PM MOLD MAKING PLASTICS SHEETS SUPERVISOR 3 Active nirmatrelvir-r itonavir (Paxlovid) 300(150mg x 2)-100 mg oral pack take TWO 150 mg tablets of nirmatrelvir with ONE 100 mg tablet of ritonavir twice daily for 5 days PO 30 Each 3 Active ergocalciferol (VITAMIN D2) 50,000 unit capsule Take 1 Capsule (50,000 Units) by mouth every 7 days 12 Capsule 04/17/2023 3:13 PM MOLD MAKING PLASTICS SHEETS SUPERVISOR 4 Active cyclobenzaprin e (FLEXERIL) 5 mg Tablet Take 1 tablet (5 mg total) by mouth 2 (two) times a day as needed for muscle spasms 10 Tablet 04/19/2023 12:32 PM MOLD MAKING PLASTICS SHEETS SUPERVISOR 4 Active aspirin (Vazalore) 81 mg Capsule Take 81 mg by mouth 2 times daily. 40 Capsule 4 Active doxycycline hyclate (VIBRAMYCIN) 100 mg tablet Take 1 Tablet (100 mg) by mouth every 12 hours. 17 Tablet 07/27/2023 5:42 PM CDT 4 Active oxyCODONE-acet aminophen (PERCOCET) 5-325 mg tablet Take 1 Tablet by mouth every 4 hours as needed for pain. ( scale score 4-6) 15 Tablet 07/27/2023 5:42 PM CDT 4 Active sennosides-doc usate sodium (SENNA-S) 8.6-50 mg tablet Take 1 Tablet by mouth nightly as needed for constipation. 10 Tablet 07/27/2023 5:42 PM CDT 4 Active aspirin (ZEESHAN CHEWABLE) 81 mg Tablet, Chewable Take 1 Tablet (81 mg) by mouth 2 times daily. 40 Tablet 07/27/2023 5:42 PM CDT 4 Active aspirin (ZEESHAN CHEWABLE) 81 mg Tablet, Chewable Take 1 Tablet (81 mg) by mouth 2 times daily. 40 Tablet 4 Active oxyCODONE-acet aminophen (PERCOCET) 5-325 mg tablet Take 1 - 2 tablets orally every 4 - 6 hours As Needed for pain 40 Tablet 08/15/2023 5:27 PM CDT 4 Active oxyCODONE-acet aminophen (PERCOCET) 5-325 mg tablet Take 1-2 Tablets by mouth every 4-6 hours as needed for pain. 40 Tablet 08/26/2023 1:10 PM CDT 4 Active denosumab (Prolia) 60 mg/mL Syringe Inject 60 mg subcutaneously every 6 months 1 mL 4 Active oxyCODONE-acet aminophen (PERCOCET) 5-325 mg tablet Take 1-2 Tablets by mouth every 4-6 hours as needed for pain. 40 Tablet 09/13/2023 4:29 PM CDT 4 Active cholecalcifero l 1,250 mcg (50,000 unit) Capsule Take 1 Capsule (50,000 Units) by mouth every 7 days. 8 Capsule 09/13/2023 4:29 PM CDT 4 Active sertraline (ZOLOFT) 50 mg tablet Take 1 Tablet (50 mg) by mouth daily at bedtime. 90 Tablet 1 03/02/2024 6:48 PM MOLD MAKING PLASTICS SHEETS SUPERVISOR 4 Active oxyCODONE-acet aminophen (PERCOCET) 5-325 mg tablet Take 1 Tablet by mouth every 12 hours as needed for pain. Max Daily Amount: 2 Tablets 15 Tablet 10/14/2023 7:22 PM CDT 4 Active gabapentin (NEURONTIN) 300 mg capsule Take 1 Capsule (300 mg) by mouth 2 times daily. 180 Capsule 1 03/02/2024 6:48 PM MOLD MAKING PLASTICS SHEETS SUPERVISOR 4 Active HYDROcodone-ac etaminophen (NORCO) 5-325 mg tablet Take 1 tablet orally every 6 hours As Needed for pain for 3 days 12 Tablet 01/02/2024 5:23 PM MOLD MAKING PLASTICS SHEETS SUPERVISOR 4 Active traMADoL (ULTRAM) 50 mg tablet Take 1 Tablet (50 mg) by mouth every 12 hours as needed for pain 30 Tablet 01/15/2024 2:37 PM MOLD MAKING PLASTICS SHEETS SUPERVISOR 4 Active oxyCODONE-acet aminophen (PERCOCET) 5-325 mg tablet Take 1-2 Tablets by mouth every 4-6 hours as needed. Max Daily Amount: 12 Tablets 30 Tablet 01/20/2024 4:24 PM MOLD MAKING PLASTICS SHEETS SUPERVISOR 4 Active oxyCODONE-acet aminophen (PERCOCET) 5-325 mg tablet Take 1-2 Tablets by mouth every 4 to 6 hours as needed for pain for 7 days. Max Daily Amount: 12 Tablets 30 Tablet 01/28/2024 11:40 AM MOLD MAKING PLASTICS SHEETS SUPERVISOR 4 Active oxyCODONE-acet aminophen (PERCOCET) 5-325 mg tablet Take 1 - 2 tablet orally every 4 - 6 hours As Needed for pain for 7 days 30 Tablet 02/07/2024 5:09 PM MOLD MAKING PLASTICS SHEETS SUPERVISOR 4 Active Encounters Date Type Department Care Team Description 03/22/2024 External Device Data [facility] ABSTRACTION Provider, Abstract 03/21/2024 External Device Data [facility] ABSTRACTION Provider, Abstract 03/20/2024 External Device Data [facility] ABSTRACTION Provider, Abstract 03/13/2024 External Device Data [facility] ABSTRACTION Provider, Abstract from Last 3 Months Immunizations Immunization Administration Dates Next Due (COMIRNATY)(12 YR UP) COVID- 19 VACCINE, MRNA, SPIKE PROTEIN, LNP, CARISA(PF) 30 MCG/0.3 ML IM SUSP 01/07/2024 INFLUENZA VACCINE HIGH DOSE QUADRIVALENT 65 YR UP PF IM 12/03/2022,12/11/2021 INFLUENZA VACCINE HIGH DOSE TRIVALENT SPLIT VIRUS, (65 YR UP), 0.5ML (PF), IM 01/07/2024 Social History Tobacco Use Types Packs/Day Years Used Date Smoking Tobacco: Never Assessed Comments Unknown Sex and Gender Information Value Date Recorded Sex Assigned at Not on file Legal Sex Female 3:29 AM MOLD MAKING PLASTICS SHEETS SUPERVISOR Gender Identity Not on file Sexual Orientation Not on file Plan of Treatment Health Maintenance Due Date Last Done Comments DTAP/TDAP/TD VACCINES (1 - Tdap) 1968 BREAST CANCER SCREENING 1989 COLORECTAL SCREENING 1994 Colorectal Cancer Screening 1994 FIT-DNA Q 3 years 1994 FIT/FOBT Q 1 year 1994 Flex Sig/CT Colonography Q 5 years 1994 PNEUMOCOCCAL VACCINE 65+ YEA RS (1 of 1 - PCV) 05/01/1999 ZOSTER VACCINE (1 of 2) 05/01/1999 RSV VACCINE (60+ or ) (1 - 1-dose 75+ series) 2024 OSTEOPOROSIS SCREENING Completed 07/20/2019 COVID-19 Vaccine Completed 01/07/2024 INFLUENZA VACCINE Completed 01/07/2024, , 12/11/2021 Insurance RX [employer] Medicare Part B RX [employer] Medicare Part D RX [employer] (INTERNAL) [facility]
--- OUTSIDE RECORDS SUMMARY | 2024-04-05 10:22 | XMS_ITS | Patient Health Summary ---
Author Organization [facility] [employer] Address [address] [place] [address] Care Team Providers Care Contour Stitcher Name Role Phone Elvis Mata DO Primary Care Provider [phone] Note from [facility],non-owned Affiliates and Associated Physician Practices is amultiple site organization consisting of ambulatory clinics and hospital sitesin [place], [place], [place] and [place]. This disclosure is being madepursuant to the Care Everywhere program and may not contain all information available regarding this patient. Last updated 17.[facility] [employer] Social History Tobacco Use Types Packs/Day Years Used Date Smoking Tobacco: Never Assessed Sex and Gender Information Value Date Recorded Sex Assigned at Not on file Gender Identity Not on file Sexual Orientation Not on file Procedures * FLOW CYTOMETRY BODY FLUID(Performed 03/29/2019) Performed for Other specified disorders of breast Results * FLOW CYTOMETRY BODY FLUID (03/29/2019 11:00 AM PERSONAL COUNSELOR) Case Report Flow Cytometry Case: [id number] Authorizing Provider: Josef Meehan MD Collected: 03/29/2019 11:00 AM Ordering Location: [facility] Care Pathology Lab Received: 03/29/2019 03:12 PM Pathologist: Sofi Todd MD Specimen: Body Fluid , Breast Aspiration 0 11:46 AM PERSONAL COUNSELOR [facility] PATH[facility] Final Diagnosis Body fluid, breast, flow cytometric immunophenotypic analysis: - No evidence of non-Hodgkin lymphoma. - See interpretation. 0 11:46 AM [facility] Flow Cytometry Interpretation The breast aspiration fluid specimen has a viability of 100%. Most of the events are within the lymphocyte gate (80%). Within the lymphocyte region, there is no monoclonal B-cell population identified (kappa: lambda ratio = 0.8:1). There is no immunophenotypically aberrant T-cell population seen (CD4:CD8 ratio = 0.5:1). There is no ZL58-rhapoeqe cell population identified in the entirety of the sample. All che were examined for expression of CD30. A cytospin prepared from the flow cytometry specimen is reviewed for research quality assurance specialist purposes. Overall, the breast aspiration fluid specimen shows no evidence of involvement by non-Hodgkin lymphoma. Correlation with clinical findings and concurrent cytology is required. KR/MM 0 11:46 AM [facility] Flow Cytometry Results Differential Result Comment Flow Cell Count /uL 3,000 Total Viability % 100 Lymphocytes % 80 Dim CD45 Region % 2 Monocytes % 8 Granulocytes % 8 0 11:46 AM [facility] Client Specimen ID # [id number] 0 11:46 AM [facility] Reason for test Other specified disorders of breast 611.89 0 11:46 AM [facility] Number of markers 16 were performed. A-2 Flow CD3 A-4 Flow CD10 A-6 Flow CD20 A-7 Flow CD23 A-12 Flow CD2 A-13 Flow CD4 A-16 Flow CD1a A-3 Flow CD5 A-5 Flow CD19 A-8 Flow CD34 A-9 Flow CD45 A-14 Flow CD7 A-15 Flow CD8 A-17 Flow CD30 A-10 Spiceland+CD19+ A-11 Lambda+CD19+ 0 11:46 AM [facility] Disclaimer Test performed at [facility], [address] [place] [address], [address]. *The established laboratory minimum viability is 70%. Values below the minimum may result in the failure to find an abnormal population of cells. This test was developed and its performance characteristics determined by the Flow Cytometry Laboratory. It has not been cleared by the [place] Food and Drug Administration (FDA). The FDA has determined that such clearance or approval is not necessary. This test is used for clinical purposes. It should not be regarded as investigational or for research. This laboratory is regulated under the Clinical Laboratory Improvement Amendments of 1998 (CLIA) as a qualified to perform high complexity clinical testing. 0 11:46 AM PERSONAL COUNSELOR [facility] PATH[facility] Embedded Images 0 11:46 AM PERSONAL COUNSELOR [facility] Fluid BODY FLUID SPECIMEN / Unknown 03/29/2019 11:00 AM PERSONAL COUNSELOR 03/29/2019 3:12 PM PERSONAL COUNSELOR Josef Meehan MD LAB - PATHOLOGY/CYTO LOGY ORDERABLES Performing Organization Address City/State/[facility] Co de Phone Number [facility] PATH[facility] [address] [phone] Care Teams Contour Stitcher Relationship Specialty Start Date End Date Elvis Mata DO PCP - General 05/12/22
--- OUTSIDE RECORDS SUMMARY | 2024-04-05 10:22 | XMS_ITS | Encounter Summary ---
Author Organization [facility] Address [address] [place] [address] Care Team Providers Care Oral Health Therapist Name Role Phone ShanedangeloElvis DO Primary Care Provider [phone] Encounter Details Date Type Department Care Team (Late st Contact Info) Description 03/29/2019 Lab Requisition [facility] Care Pathology Lab [address] [place] [address] Josef Meehan MD [address] [place] [address] Other specified disorders of breast Social History Tobacco Use Types Packs/Day Years Used Date Smoking Tobacco: Never Assessed Sex and Gender Information Value Date Recorded Sex Assigned at Not on file Gender Identity Not on file Sexual Orientation Not on file documented as of this encounter Plan of Treatment Not on file documented as of this encounter Procedures Procedure Name Priority Date/Time Associated Diagnosis Comments FLOW CYTOMETRY BODY FLUID Routine 03/29/2019 11:00 AM OPTIMIZATION MANAGER Other specified disorders of breast documented in this encounter Results * FLOW CYTOMETRY BODY FLUID (03/29/2019 11:00 AM OPTIMIZATION MANAGER) Case Report Flow Cytometry Case: [id number] Authorizing Provider: Josef Meehan MD Collected: 03/29/2019 11:00 AM Ordering Location: [facility] Care Pathology Lab Received: 03/29/2019 03:12 PM Pathologist: Sofi Todd MD Specimen: Body Fluid , Breast Aspiration 0 11:46 AM OPTIMIZATION MANAGER [facility] Final Diagnosis Body fluid, breast, flow cytometric immunophenotypic analysis: - No evidence of non-Hodgkin lymphoma. - See interpretation. 0 11:46 AM [facility] Flow Cytometry Interpretation The breast aspiration fluid specimen has a viability of 100%. Most of the events are within the lymphocyte gate (80%). Within the lymphocyte region, there is no monoclonal B-cell population identified (kappa: lambda ratio = 0.8:1). There is no immunophenotypically aberrant T-cell population seen (CD4:CD8 ratio = 0.5:1). There is no VP80-rkisdabn cell population identified in the entirety of the sample. All che were examined for expression of CD30. A cytospin prepared from the flow cytometry specimen is reviewed for quality control engineer purposes. Overall, the breast aspiration fluid specimen shows no evidence of involvement by non-Hodgkin lymphoma. Correlation with clinical findings and concurrent cytology is required. KR/MM 0 11:46 AM [facility] Flow Cytometry Results Differential Result Comment Flow Cell Count /uL 3,000 Total Viability % 100 Lymphocytes % 80 Dim CD45 Region % 2 Monocytes % 8 Granulocytes % 8 0 11:46 AM [facility] Client Specimen ID # [id number] 0 11:46 AM [facility] Reason for test Other specified disorders of breast 611.89 0 11:46 AM [facility] Number of markers 16 were performed. A-2 Flow CD3 A-4 Flow CD10 A-6 Flow CD20 A-7 Flow CD23 A-12 Flow CD2 A-13 Flow CD4 A-16 Flow CD1a A-3 Flow CD5 A-5 Flow CD19 A-8 Flow CD34 A-9 Flow CD45 A-14 Flow CD7 A-15 Flow CD8 A-17 Flow CD30 A-10 Genoa+CD19+ A-11 Lambda+CD19+ 0 11:46 AM [facility] Disclaimer Test performed at [facility], [address] [place] [address], [address]. *The established laboratory minimum viability is 70%. [...] high complexity clinical testing. 0 11:46 AM OPTIMIZATION MANAGER [facility] Embedded Images 0 11:46 AM OPTIMIZATION MANAGER [facility] Fluid BODY FLUID SPECIMEN / Unknown 03/29/2019 11:00 AM OPTIMIZATION MANAGER 03/29/2019 3:12 PM OPTIMIZATION MANAGER Josef Meehan MD LAB - PATHOLOGY/CYTO LOGY ORDERABLES [facility] [address] [phone] documented in this encounter Visit Diagnoses Diagnosis Other specified disorders of breast documented in this encounter Care Teams Oral Health Therapist Relationship Specialty Start Date End Date Elvis Mata DO PCP - General 05/12/22 documented as of this encounter
--- OUTSIDE RECORDS SUMMARY | 2024-04-05 10:22 | XMS_ITS | Clinical Summary ---
Author Organization [facility] [employer] Address [address] [place] [address] Care Team Providers Care Bituminous Paving Machine Operator Name Role Phone Elvis Mata DO Primary Care Provider [phone] Source Comments [facility] [employer],non-[facility] Affiliates and Associated Physician Practices is amultiple site organization consisting of ambulatory clinics and hospital sitesin [place], [place] and [place]. This disclosure is being madepursuant to the Care Everywhere program and may not contain all information available regarding this patient. Last updated 17.[facility] [employer] Social History Tobacco Use Types Packs/Day Years Used Date Smoking Tobacco: Never Assessed Sex and Gender Information Value Date Recorded Sex Assigned at Not on file Gender Identity Not on file Sexual Orientation Not on file Plan of Treatment Health Maintenance Due Date Last Done Comments BONE DENSITY TESTING 1949 COLOGUARD (AGES 45-75) - COL ON CA SCREENING 1949 COLON MONITORING 1949 COLONOSCOPY - COLON CA SCREENING 1949 CT COLONOGRAPHY - COLON CA SCREENING 1949 Colorectal Cancer Screening 1949 FIT - COLON CA SCREENING 1949 FLEX SIG - COLON CA SCREENING 1949 LIPID TESTING 1949 MAMMOGRAM 1949 MEDICARE AWV 12 MONTHS 1949 HEPATITIS C SCREENING 04/26/1967 DTAP/TDAP/TD VACCINES (1 - Tdap) 1968 PNEUMOCOCCAL VACCINE 50+ (1 of 1 - PCV) 05/01/1999 ZOSTER VACCINE (1 of 2) 05/01/1999 COVID-19 VACCINE ( - 2023-2 5 season) 2023 INFLUENZA VACCINE (#1) 2023 DEPRESSION SCREENING 02/29/2024 Respiratory Syncytial Virus (RSV) Vaccine Pt: or over 60 yrs (1 - 1-dose 75+ series) 2024 HEPATITIS B VACCINE Aged Out No longe r eligible based on patient's age to complete this topic HIB VACCINE Aged Out No longer eligi ble based on patient's age to complete this topic HPV VACCINE Aged Out No longer eligi ble based on patient's age to complete this topic MENINGOCOCCAL (Group B) VACCINE Aged Out No longer eligible based on patient's age to complete this topic MENINGOCOCCAL VACCINE Aged Out No claire yohan eligible based on patient's age to complete this topic Care Teams Bituminous Paving Machine Operator Relationship Specialty Start Date End Date Elvis Mata DO PCP - General 05/12/22
--- OUTSIDE RECORDS SUMMARY | 2024-04-05 10:22 | XMS_ITS | Referral Summary ---
Author Organization [facility] Address [address] [place] [address] Care Team Providers Care Architectural Renderer Name Role Phone Elvis Mata DO Primary Care Provider [phone] Allergies Active Allergy Reactions Criticality Noted Date [...] Take 20 mEq by mouth daily. Active mlvuh-2-eqc-epa -dpa-fish oil 1,050-1,200 mg capsuleIndicati ons:stop 5 days before surgery Take 1 capsule by mouth daily Active biotin 2,500 mcg capsule Take 2,500 mcg by mouth daily. Active glucosam-chond- mwb4-Y-wdex-bor 625-439-12-0.5 mg tablet Take 1 tablet by mouth [...] knee 02/02/2016 Pyogenic arthritis of knee 09/24/2015 Social History Tobacco Use Types Packs/Day Years Used Date Smoking Tobacco: Never Smokeless Tobacco: Never Tobacco Cessation:Counseling Given: Not Answered Alcohol Use Standard Drinks/Week Comments Yes 0 (1 standard drink = 0.6 oz pur e alcohol) Comments Unknown Sex and Gender Information Value Date Recorded Sex Assigned at Not on file Legal Sex Female 8:39 AM SAND BLASTER Gender Identity Not on file Sexual Orientation Not on file Last Filed Vital Signs Vital Sign Reading Time Taken Comments Blood Pressure 138/86 04/19/2023 10:00 AM SAND BLASTER Pulse 75 04/19/2023 10:00 AM SAND BLASTER Temperature 36.7 C (98.1 F) 04/19/2023 10:00 AM SAND BLASTER Respiratory Rate 16 04/19/2023 10:00 AM SAND BLASTER Oxygen Saturation 99% 04/19/2023 10:00 AM SAND BLASTER Inhaled Oxygen Concentration - - Weight 59.4 kg (131 lb) 04/19/2023 10:00 AM SAND BLASTER Height 160 cm (5' 2.99 ) 03/31/2022 8:10 AM SAND BLASTER Body Mass Index 23.21 03/31/2022 8:10 AM SAND BLASTER Plan of Treatment Not on file Medical Devices Implanted Type Area Ppa Teacher Device Identifier Shelf Expiration Date Model / Serial / Lot Mtp Plate Implanted:Qty: 1 on 07/15/2017 by Lucia Cortez DPM at [facility] Plate Right: Toes [employer] [id number] / / Description:Great toe Max Vpc Screw Implanted:Qty: 1 on 07/15/2017 by Lucia Cortez DPM at [facility] Screw Right: Toes [employer] [id number] / / Description:GREAT TOE Peg Fixation Dvr L14 Mm Od2.5 Mm Knee Thread Multidirectional Nonsterile - [id number] Implanted:Qty: 1 on 07/15/2017 by Lucia Cortez DPM at [facility] Screw Right: Toes [employer] [id number] / / Description:GREAT TOE Twistoff Screws Implanted:Qty: 1 on 07/15/2017 by Lucia Cortez DPM at [facility] Screw Right: Metatarsal [employer] [id number] / / Description:3RD TOE Libby Wire Implanted:Qty: 2 on 07/15/2017 by Lucia Cortez DPM at [facility] Wire Right: Metatarsal [employer] 01/27/2026 [id number] / [id number] / [id number] Description:SECOND AND THIRD TOE Libby Wire .035 Implanted:Qty: 1 on 07/15/2017 by Lucia Cortez DPM at [facility] Wire Right: Metatarsal [employer] 06/28/2023 [id number] / / [id number] Description:2ND TOE Peg Fixation F3 Full Thread L14 Mm Od2.5 Mm Foot Locking Screw Fragment Plate System - [id number] Implanted:Qty: 3 on 07/15/2017 by Lucia Cortez DPM at [facility] Right: Toes [employer] FP14 / / Description:GREAT TOE Insurance MEDICARE [employer] MEDICARE [employer] MEDICARE [facility] Care Teams Architectural Renderer Relationship Specialty Start Date End Date Elvis Mata DO PCP - General 07/13/17
--- OUTSIDE RECORDS SUMMARY | 2024-04-05 10:22 | XMS_ITS | Encounter Summary ---
Author Organization [employer] Address [address] [place] [address] Care Team Providers Care Senior Statistician Name Role Phone Unavailable Primary Care Provider Unavailabl e Encounter Details Date Type Department Care Team (Late Contact Info) Description 10/08/1999 Outpatient Historical [facility] Mercy Leyva MD [address] [place] [address] Social History Tobacco Use Types Packs/Day Years Used Date Smoking Tobacco: Never Assessed Comments Unknown Sex and Gender Information Value Date Recorded Sex Assigned at Not on file Legal Sex Female 3:29 AM STEWARD/STEWARDESS THIRD Gender Identity Not on file Sexual Orientation Not on file documented as of this encounter Plan of Treatment Not on file documented as of this encounter Visit Diagnoses Not on filedocumented in this encounter
[2024-04-05 14:52] LABS: Alanine Aminotransferase 27 U/L (6-35); Albumin Level 3.9 g/dL (3.5-5.1); Alkaline Phosphatase 90 U/L (38-126); Anion Gap 11 mmol/L (4-12); Aspartate Amino Transferase 39 U/L (14-36); Bilirubin,Total 0.6 mg/dL (0.2-1.3); Blood Urea Nitrogen 14 mg/dL (7-17); Calcium 9.7 mg/dL (8.4-10.2); Carbon Dioxide 25 mmol/L (22-30); Chloride 100 mmol/L (98-107); Cholesterol 178 mg/dL (0-200); Estimated Glomerular Filt Rate > 60; Glucose 82 mg/dL (65-110); HDL Direct 58 mg/dL; Potassium 4.6 mmol/L (3.4-5.0); Sodium 136 mmol/L (137-145); Triglycerides 84 mg/dL (<150)
[2024-04-05 14:54] LABS: Basophils Percent Auto 0.3 % (0.2-1.2); Eosinophils Absolute Auto 0.1 K/mm3 (0-0.3); Hematocrit 37.3 % (37.0-47.0); Hemoglobin 11.7 g/dL (12.0-15.0); Immature Granulocyte Absolute 0.02 K/mm3 (0.00-0.031); Immature Granulocyte Percent A 0.2 % (0-0.5); Lymphocytes Absolute Auto 3.15 K/mm3 (0.9-3.2); Lymphocytes Percent Auto 31.9 % (18.3-44.2); Mean Corpuscular HGB Conc 31.4 g/dl (32-36); Mean Corpuscular Volume 92.3 fl (80-100); Mean Platelet Volume 9.5 fl (7.4-10.4); Monocytes Absolute Auto 0.6 K/mm3 (0.1-0.6); Monocytes Percent Auto 6.4 % (2.6-8.5); Neutrophils Absolute Auto 5.9 K/mm3 (1.3-6.7); Neutrophils Percent Auto 60.2 % (45.5-73.1); Platelet Count Result 393 k/mm3 (150-375); Red Blood Count 4.04 M/mm3 (4.2-5.4); Red Cell Distribution Width 13.3 % (11.5-14.5); White Blood Count 9.9 K/mm3 (4.5-10.0)
[2024-04-05 15:02] LABS: LDL Cholesterol Direct 86 mg/dL
[2024-04-05 17:16] LABS: Vitamin D 25 Hydroxy 26.2 ng/mL
== END 2024-04-05 09:57 | disposition home or self-care (01) ==
LOC: ANHGOSHLAB 09:57
PROVIDERS: PCP Internal Medicine; Visit Provider Nurse Practitioner
DX: I10 Essential (primary) hypertension (principal); E78.2 Mixed hyperlipidemia; E55.9 Vitamin D deficiency, unspecified; M81.0 Age-related osteoporosis without current pathological fracture
CPT/HCPCS: 36415; 80053; 80061; 82306; 84443; 85025

== ENCOUNTER 2024-08-11 07:53 | Outpatient (CLI) | payer MEDICARE, OTHER, SELFPAY ==
--- NOTE | ~2024-08-11 | DEXA_ITS ---
Bone Density Report Name: EBONY HOLLAND Age: 74 Sex: Female Ethnicity: White Date of : 1950 Indication: postmenopausal; screening for osteoporosis; height loss; inflammatory bowel disease; prior fracture; cancer; Referring Provider: KATELYNN VANCE Study: Bone densitometry was performed. Exam Date: August 11, 2024 Accession number: [id number] Bone Density: Region BMD T-score Z-score Classification AP Spine(L1-L4) 1.071 0.2 2.6 Normal World Health Organization criteria for BMD impression classify patients as: Normal (T-score at or above -1.0), Osteopenia (T-score between -1.0 and -2.5), or Osteoporosis (T-score at or below -2.5). Clinical Information Provided by Patient: Have had a previous hip or vertebral fracture Has had a low trauma fracture Is being treated for osteoporosis Has used the following medications: Fosamax (i.e. alendronate), Reclast (i.e. zoledronate), Prolia (i.e. denosumab), Vitamin D, Calcium Has the following medical conditions: Cancer, Inflammatory bowel diseases Patient maximum height was 65.5 Menopause Age: 44 Onset of menses at age 14 Number of children 0 Impression: The patient has normal bone mass. The patient has risk factors, including: previous fracture. Discussion: It is important to ask patients whether they are taking their medications and to encourage continued and appropriate compliance with their osteoporosis therapies to reduce fracture risk. It is also important to review their risk factors and encourage appropriate calcium and vitamin D intakes, exercise, fall prevention and other lifestyle measures. Follow-Up: Consider a repeat BMD and Vertebral Fracture Assessment (VFA) exam in 2 years or sooner if medically necessary, to reassess this patient's status. Reported by: SANDY on 08/11/2024 8:27:00 AM. Reviewed, dictated and finalized at location A.
--- OUTSIDE RECORDS SUMMARY | 2024-08-11 07:55 | XMS_ITS | Clinical Summary ---
Author Organization [facility] [employer] Address [address] [place] [address] Care Team Providers Care Instructor Industrial Design Name Role Phone Elvis Mata DO Primary Care Provider [phone] Source Comments [facility] [employer],non-[facility] Affiliates and Associated Physician Practices is amultiple site organization consisting of ambulatory clinics and hospital sitesin [place], [place], [place] and [place]. This disclosure is being madepursuant to the Care Everywhere program and may not contain all information available regarding this patient. Last updated 17.[facility] [employer] Social History Tobacco Use Types Packs/Day Years Used Date Smoking Tobacco: Never Assessed Comments Unknown Sex and Gender Information Value Date Recorded Sex Assigned at Not on file Legal Sex Female 5:21 PM GROUNDSKEEPING MAINTENANCE WORKER Gender Identity Not on file Sexual Orientation [...] SCREENING 1949 LIPID TESTING 1949 MAMMOGRAM 1949 HEPATITIS C SCREENING 04/26/1967 DTAP/TDAP/TD VACCINES (1 - Tdap) 1968 PNEUMOCOCCAL VACCINE 50+ (1 of 1 - PCV) 05/01/1999 ZOSTER VACCINE (1 of 2) 05/01/1999 COVID-19 VACCINE (1 - 2023-2 5 season) 2023 DEPRESSION SCREENING 02/29/2024 Respiratory Syncytial Virus (RSV) Vaccine Pt: or over 60 yrs (1 - 1-dose 75+ series) 2024 INFLUENZA VACCINE (Season Ended) 2024 HEPATITIS B VACCINE Aged Out No longe r eligible based on patient's age to complete this topic HIB VACCINE Aged Out No longer eligi ble based on patient's age to complete this topic HPV VACCINE Aged Out No longer eligi ble based on patient's age to complete this topic MENINGOCOCCAL (Group B) VACC INE SHARED DECISION-MAKING Aged Out No longer eligibl e based on patient's age to complete this topic MENINGOCOCCAL GROUPS A/C/Y/W VACCINE Aged Out No longer eligible b ased on patient's age to complete this topic Insurance MEDICARE Care Teams Instructor Industrial Design Relationship Specialty Start Date End Date Elvis Mata DO PCP - General 05/12/22
--- OUTSIDE RECORDS SUMMARY | 2024-08-11 07:55 | XMS_ITS | Encounter Summary ---
Author Organization [facility] Address [address] [place] [address] Care Team Providers Care Converter Operator Name Role Phone Unavailable Primary Care Provider Unavailabl e Encounter Details Date Type Department Care Team (Late Contact Info) Description 10/08/1999 Outpatient Historical [facility] Mercy Leyva MD [address] [place] [address] Social History Tobacco Use Types Packs/Day Years Used Date Smoking Tobacco: Never Assessed Comments Unknown Sex and Gender Information Value Date Recorded Sex Assigned at Not on file Legal Sex Female 3:29 AM FLOORHAND Gender Identity Not on file Sexual Orientation Not on file documented as of this encounter Plan of Treatment Not on file documented as of this encounter Visit Diagnoses Not on filedocumented in this encounter
--- OUTSIDE RECORDS SUMMARY | 2024-08-11 07:55 | XMS_ITS | Clinical Summary ---
Author Organization [facility] Address [address] [place]: Epic Prelude ADT POLY MUSE [address] Care Team Providers Care Traverse Rod Assembler Name Role Phone Unavailable Primary Care Provider Unavailabl e Allergies Active Allergy Reactions Criticality Noted Date Comments Sulfa (Sulfonamide Antibiotics) Unknown 07/2022 Medications risedronate (ActoneL) 35 mg tablet Take 1 tablet by mouth once weekly. 12 Tablet 3 3 Active sertraline (ZOLOFT) 50 mg tablet Take 1 Tablet (50 mg) by mouth daily at bedtime. 90 Tablet 3 05/05/2023 5:22 PM LIME PULLER 3 Active nirmatrelvir-r itonavir (Paxlovid) 300(150mg x 2)-100 mg oral pack take TWO 150 mg tablets of nirmatrelvir with ONE 100 mg tablet of ritonavir twice daily for 5 days PO 30 Each 3 Active ergocalciferol (VITAMIN D2) 50,000 unit capsule Take 1 Capsule (50,000 Units) by mouth every 7 days 12 Capsule 04/17/2023 3:13 PM LIME PULLER 4 Active cyclobenzaprin e (FLEXERIL) 5 mg Tablet Take 1 tablet (5 mg total) by mouth 2 (two) times a day as needed for muscle spasms 10 Tablet 04/19/2023 12:32 PM LIME PULLER 4 Active aspirin (Vazalore) 81 mg Capsule [...] Tablet 09/13/2023 4:29 PM CDT 4 Active sertraline (ZOLOFT) 50 mg tablet Take 1 Tablet (50 mg) by mouth daily at bedtime. 90 Tablet 1 03/02/2024 6:48 PM LIME PULLER 4 Active oxyCODONE-acet aminophen (PERCOCET) 5-325 mg tablet Take 1 Tablet by mouth every 12 hours as needed for pain. Max Daily Amount: 2 Tablets 15 Tablet 10/14/2023 7:22 PM CDT 4 Active gabapentin (NEURONTIN) 300 mg capsule Take 1 Capsule (300 mg) by mouth 2 times daily. 180 Capsule 1 03/02/2024 6:48 PM LIME PULLER 4 Active HYDROcodone-ac etaminophen (NORCO) 5-325 mg tablet Take 1 tablet orally every 6 hours As Needed for pain for 3 days 12 Tablet 01/02/2024 5:23 PM LIME PULLER 4 Active traMADoL (ULTRAM) 50 mg tablet Take 1 Tablet (50 mg) by mouth every 12 hours as needed for pain 30 Tablet 01/15/2024 2:37 PM LIME PULLER 4 Active oxyCODONE-acet aminophen (PERCOCET) 5-325 mg tablet Take 1-2 Tablets by mouth every 4-6 hours as needed. Max Daily Amount: 12 Tablets 30 Tablet 01/20/2024 4:24 PM LIME PULLER 4 Active oxyCODONE-acet aminophen (PERCOCET) 5-325 mg tablet Take 1-2 Tablets by mouth every 4 to 6 hours as needed for pain for 7 days. Max Daily Amount: 12 Tablets 30 Tablet 01/28/2024 11:40 AM LIME PULLER 4 Active oxyCODONE-acet aminophen (PERCOCET) 5-325 mg tablet Take 1 - 2 tablet orally every 4 - 6 hours As Needed for pain for 7 days 30 Tablet 02/07/2024 5:09 PM LIME PULLER 4 Active cholecalcifero l 1,250 mcg (50,000 unit) Capsule Take 1 Capsule (50,000 Units) by mouth every 7 days. 8 Capsule 04/10/2024 6:10 PM LIME PULLER 5 Active cholecalcifero l 1,250 mcg (50,000 unit) Capsule Take one capsule (1250 mcg) orally weekly 8 Capsule 06/12/2024 7:03 PM CDT 5 Active Encounters Date Type Department Care Team Description 07/24/2024 External Device Data STL ABSTRACTION Provider, Abstract 07/19/2024 External Device Data STL ABSTRACTION Provider, Abstract 07/18/2024 External Device Data STL ABSTRACTION Provider, Abstract 07/18/2024 External Device Data STL ABSTRACTION Provider, Abstract 07/17/2024 External Device Data STL ABSTRACTION Provider, Abstract 05/16/2024 External Device Data STL ABSTRACTION Provider, Abstract [...] on file Legal Sex Female 3:29 AM LIME PULLER Gender Identity Not on file Sexual Orientation Not on file Plan of Treatment Health Maintenance Due Date Last Done Comments DTAP/TDAP/TD VACCINES (1 - Tdap) 1968 COLORECTAL SCREENING 1994 Colorectal Cancer Screening 1994 FIT-DNA Q 3 years 1994 FIT/FOBT Q 1 year 1994 Flex Sig/CT Colonography Q 5 years 1994 PNEUMOCOCCAL VACCINE 50+ YEA RS (1 of 1 - PCV) 05/01/1999 ZOSTER VACCINE (1 of 2) 05/01/1999 RSV VACCINE (60+ or ) (1 - 1-dose 75+ series) 2024 COVID-19 Vaccine (2 - season) 07/06/202410/2023 OSTEOPOROSIS SCREENING 07/19/2024 07/20/2019 INFLUENZA VACCINE Completed 01/07/2024, , 12/11/2021 Insurance RX [employer] Medicare Part B RX [employer] Medicare Part D RX [employer] (INTERNAL) [facility]
--- OUTSIDE RECORDS SUMMARY | 2024-08-11 07:55 | XMS_ITS | Clinical Summary ---
Author Organization [facility] Address [address] [place] [address] Care Team Providers Care Automobile Accessories Salesperson Name Role Phone Elvis Mata DO Primary Care Provider [phone] Allergies Active Allergy Reactions Criticality Noted Date [...] Take 20 mEq by mouth daily. Active iekdo-9-gga-epa -dpa-fish oil 1,050-1,200 mg capsuleIndicati ons:stop 5 days before surgery Take 1 capsule by mouth daily Active biotin 2,500 mcg capsule Take 2,500 mcg by mouth daily. Active glucosam-chond- dgl5-I-xxfg-bor 952-693-75-0.5 mg tablet Take 1 tablet by mouth [...] Comments Hypertension GERD (gastroesophageal reflux disease) Neuropathy LE's Arthritis Cancer (HCC) Right Breast, Ma stectomy with Lymph Nodes Social History Tobacco Use Types Packs/Day Years Used Date Smoking Tobacco: Never Smokeless Tobacco: Never Tobacco Cessation:Counseling Given: Not Answered Alcohol Use Standard Drinks/Week Comments Yes 0 (1 standard drink = 0.6 oz pur e alcohol) Comments Unknown Sex and Gender Information Value Date Recorded Sex Assigned at Not on file Legal Sex Female 8:39 AM CUPROUS CHLORIDE OPERATOR Gender Identity Not on file Sexual Orientation Not on file Obstetrics History Last Filed Vital Signs Vital Sign Reading Time Taken Comments Blood Pressure 138/86 04/19/2023 10:00 AM CUPROUS CHLORIDE OPERATOR Pulse 75 04/19/2023 10:00 AM CUPROUS CHLORIDE OPERATOR Temperature 36.7 C (98.1 F) 04/19/2023 10:00 AM CUPROUS CHLORIDE OPERATOR Respiratory Rate 16 04/19/2023 10:00 AM CUPROUS CHLORIDE OPERATOR Oxygen Saturation 99% 04/19/2023 10:00 AM CUPROUS CHLORIDE OPERATOR Inhaled Oxygen Concentration - - Weight 59.4 kg (131 lb) 04/19/2023 10:00 AM CUPROUS CHLORIDE OPERATOR Height 160 cm (5' 2.99) 03/31/2022 8:10 AM CUPROUS CHLORIDE OPERATOR Body Mass Index 23.21 03/31/2022 8:10 AM CUPROUS CHLORIDE OPERATOR Plan of Treatment Health Maintenance Due Date Last Done Comments Colon Cancer Screening-Colonoscopy 1950 Depression Screening 1950 Fall Risk Assessment 1950 Hepatitis C Screening 1950 Osteoporosis Screening-Bone Density Scan 1950 DTaP/Tdap/Td Vaccine (1 - Tdap) 1960 Hepatitis B Screening 05/01/1967 Pneumococcal vaccine 65+ (1 of 1 - PCV) 05/01/1999 Zoster Vaccine (1 of 2) 05/01/1999 Well Visit 65+ 2014 Influenza Vaccine (Season Ended) 2024 Medical Devices Implanted Type Area Human Resources Hr Generalist Device Identifier Shelf Expiration Date Model / Serial / Lot Mtp Plate Implanted:Qty: 1 on 07/15/2017 by Lucia Cortez DPM at [facility] Plate Right: Toes [employer] 8240-71-101 / / Description:Great toe Max Vpc Screw Implanted:Qty: 1 on 07/15/2017 by Lucia Cortez DPM at [facility] Screw Right: Toes [employer] [id number] / / Description:GREAT TOE Peg Fixation Dvr L14 Mm Od2.5 Mm Knee Thread Multidirectional Nonsterile - [id number] Implanted:Qty: 1 on 07/15/2017 by Lucia Cortez DPM at [facility] Screw Right: Toes [employer] [id number] / / Description:GREAT TOE Twistoff Screws Implanted:Qty: 1 on 07/15/2017 by Lucia Cortez DPM at [facility] Screw Right: Metatarsal [employer] [id number] / / Description:3RD TOE Libby Wire Implanted:Qty: 2 on 07/15/2017 by Lucia Cortez DPM at [facility] Wire Right: Metatarsal [employer] 01/27/2026 [id number] / [id number] / [id number] Description:SECOND AND THIRD TOE Libby Wire .035 Implanted:Qty: 1 on 07/15/2017 by Lucia Cortez DPM at [facility] Wire Right: Metatarsal [employer] 06/28/2023 [id number] / / [id number] Description:2ND TOE Peg Fixation F3 Full Thread L14 Mm Od2.5 Mm Foot Locking Screw Fragment Plate System - [id number] Implanted:Qty: 3 on 07/15/2017 by Lucia Cortez DPM at [facility] Right: Tee [employer] FP14 / / Description:GREAT TOE Insurance MEDICARE [facility] MEDICARE [facility] MEDICARE [facility] Care Teams Automobile Accessories Salesperson Relationship Specialty Start Date End Date Elvis Mata DO PCP - General 07/13/17
--- OUTSIDE RECORDS SUMMARY | 2024-08-11 07:55 | XMS_ITS | Referral Summary ---
Author Organization [facility] Address [address] [place] [address] Care Team Providers Care Electric Needle Specialist Name Role Phone Elvis Mata DO Primary Care Provider [phone] Allergies Active Allergy Reactions Criticality Noted Date [...] Take 20 mEq by mouth daily. Active rvaks-1-pwu-epa -dpa-fish oil 1,050-1,200 mg capsuleIndicati ons:stop 5 days before surgery Take 1 capsule by mouth daily Active biotin 2,500 mcg capsule Take 2,500 mcg by mouth daily. Active glucosam-chond- aog7-N-ivmk-bor 611-691-13-0.5 mg tablet Take 1 tablet by mouth [...] on file Legal Sex Female 8:39 AM CERTIFIED ATHLETIC TRAINER Gender Identity Not on file Sexual Orientation Not on file Last Filed Vital Signs Vital Sign Reading Time Taken Comments Blood Pressure 138/86 04/19/2023 10:00 AM CERTIFIED ATHLETIC TRAINER Pulse 75 04/19/2023 10:00 AM CERTIFIED ATHLETIC TRAINER Temperature 36.7 C (98.1 F) 04/19/2023 10:00 AM CERTIFIED ATHLETIC TRAINER Respiratory Rate 16 04/19/2023 10:00 AM CERTIFIED ATHLETIC TRAINER Oxygen Saturation 99% 04/19/2023 10:00 AM CERTIFIED ATHLETIC TRAINER Inhaled Oxygen Concentration - - Weight 59.4 kg (131 lb) 04/19/2023 10:00 AM CERTIFIED ATHLETIC TRAINER Height 160 cm (5' 2.99) 03/31/2022 8:10 AM CERTIFIED ATHLETIC TRAINER Body Mass Index 23.21 03/31/2022 8:10 AM CERTIFIED ATHLETIC TRAINER Plan of Treatment Not on file Medical Devices Implanted Type Area Custodian Athletic Equipment Device Identifier Shelf Expiration Date Model / Serial / Lot Mtp Plate Implanted:Qty: 1 on 07/15/2017 by Lucia Cortez DPM at [facility] Plate Right: Toes [employer] [id number] / / Description:Great toe Max Vpc Screw Implanted:Qty: 1 on 07/15/2017 by Lucia Cortez DPM at [facility] Screw Right: Toes [employer] [id number] / / Description:GREAT TOE Peg Fixation Dvr L14 Mm Od2.5 Mm Knee Thread Multidirectional Nonsterile - [id number] Implanted:Qty: 1 on 07/15/2017 by Lucia Cortez DPM at [facility] Screw Right: Toes [employer] [id number] / / Description:GREAT TOE Twistoff Screws Implanted:Qty: 1 on 07/15/2017 by Lucia Cortez DPM at [facility] Screw Right: Metatarsal [employer] [id number] / / Description:3RD TOE Libby Wire Implanted:Qty: 2 on 07/15/2017 by Lucia Cortez DPM at [facility] Wire Right: Metatarsal [employer] 01/27/2026 [id number] / [id number] / [id number] Description:SECOND AND THIRD TOE Libby Wire .035 Implanted:Qty: 1 on 07/15/2017 by Lucia Cortez DPM at [facility] Wire Right: Metatarsal [employer] 06/28/2023 [id number] / / [id number] Description:2ND TOE Peg Fixation F3 Full Thread L14 Mm Od2.5 Mm Foot Locking Screw Fragment Plate System - [id number] Implanted:Qty: 3 on 07/15/2017 by Lucia Cortez DPM at [facility] Right: Toes [employer] FP14 / / Description:GREAT TOE Insurance MEDICARE [employer]ICARE [employer] MEDICARE [facility] Care Teams Electric Needle Specialist Relationship Specialty Start Date End Date Elvis Mata DO PCP - General 07/13/17
--- OUTSIDE RECORDS SUMMARY | 2024-08-11 07:55 | XMS_ITS | Encounter Summary ---
Author Organization [facility] Address [address] [place] [address] Care Team Providers Care Bacteriologist Industrial Name Role Phone ShanedangeloElvis DO Primary Care Provider [phone] Encounter Details Date Type Department Care Team (Late st Contact Info) Description 03/29/2019 Lab Requisition [facility] [address] [place] [address] Josef Meehan MD [address] [place] [address] Other specified disorders of breast Social History Tobacco Use Types Packs/Day Years Used Date Smoking Tobacco: Never Assessed Comments Unknown Sex and Gender Information Value Date Recorded Sex Assigned at Not on file Legal Sex Female 5:21 PM MACHINE TRY OUT SETTER Gender Identity Not on file Sexual Orientation Not on file documented as of this encounter Plan of Treatment Not on file documented as of this encounter Procedures Procedure Name Priority Date/Time Associated Diagnosis Comments FLOW CYTOMETRY BODY FLUID Routine 03/29/2019 11:00 AM MACHINE TRY OUT SETTER Other specified disorders of breast documented in this encounter Results * FLOW CYTOMETRY BODY FLUID (03/29/2019 11:00 AM MACHINE TRY OUT SETTER) Case Report Flow Cytometry Case: [id number] Authorizing Provider: Josef Meehan MD Collected: 03/29/2019 11:00 AM Ordering Location: [facility]ology Lab Received: 03/29/2019 03:12 PM Pathologist: Sofi Todd MD Specimen: Body Fluid , Breast Aspiration 0 11:46 AM [facility] Final Diagnosis Body fluid, breast, flow cytometric immunophenotypic analysis: - No evidence of non-Hodgkin lymphoma. - See interpretation. 0 11:46 AM [facility] PATH[facility]Y LAB at [address]6 MACHINE TRY OUT SETTER Flow Cytometry Interpretation The breast aspiration fluid specimen has a viability of 100%. Most of the events are within the lymphocyte gate (80%). Within the lymphocyte region, there is no monoclonal B-cell population identified (kappa: lambda ratio = 0.8:1). There is no immunophenotypically aberrant T-cell population seen (CD4:CD8 ratio = 0.5:1). There is no KG00-eifytkvm cell population identified in the entirety of the sample. All che were examined for expression of CD30. A cytospin prepared from the flow cytometry specimen is reviewed for quality improvement consultant purposes. Overall, the breast aspiration fluid specimen shows no evidence of involvement by non-Hodgkin lymphoma. Correlation with clinical findings and concurrent cytology is required. KR/MM 0 11:46 AM [facility] Flow Cytometry Results Differential Result Comment Flow Cell Count /uL 3,000 Total Viability % 100 Lymphocytes % 80 Dim CD45 Region % 2 Monocytes % 8 Granulocytes % 8 0 11:46 AM [facility] Client Specimen ID # [id number] 0 11:46 AM [facility] Reason for test Other specified disorders of breast 611.89 0 11:46 AM [facility] Number of markers 16 were performed. A-2 Flow CD3 A-4 Flow CD10 A-6 Flow CD20 A-7 Flow CD23 A-12 Flow CD2 A-13 Flow CD4 A-16 Flow CD1a A-3 Flow CD5 A-5 Flow CD19 A-8 Flow CD34 A-9 Flow CD45 A-14 Flow CD7 A-15 Flow CD8 A-17 Flow CD30 A-10 [place]+CD19+ A-11 Lambda+CD19+ 0 11:46 AM [facility] Disclaimer Test performed at [facility], [address] [place], [place], [address]. *The established laboratory minimum viability is 70%. [...] high complexity clinical testing. 0 11:46 AM MACHINE TRY OUT SETTER [facility] Embedded Images 0 11:46 AM MACHINE TRY OUT SETTER [facility] Fluid BODY FLUID SPECIMEN / Unknown 03/29/2019 11:00 AM MACHINE TRY OUT SETTER 03/29/2019 3:12 PM MACHINE TRY OUT SETTER Josef Meehan MD LAB - PATHOLOGY/CYTOLOGY ORDER KIAN Final Result Performing Organization Address City/State/[facility] Co de Phone Number [facility] [address] [phone] documented in this encounter Visit Diagnoses Diagnosis Other specified disorders of breast documented in this encounter Care Teams Bacteriologist Industrial Relationship Specialty Start Date End Date Elvis Mata DO PCP - General 05/12/22 documented as of this encounter
--- OUTSIDE RECORDS SUMMARY | 2024-08-11 07:55 | XMS_ITS | Encounter Summary ---
Author Organization [facility] Address [address] [place] [address] Care Team Providers Care Ammunition And Explosives Handler Name Role Phone Unavailable Primary Care Provider Unavailabl e Encounter Details Date Type Department Care Team (Late st Contact Info) Description 09/09/1998 Outpatient Historical [facility] Mercy Leyva MD [address] [place] [address] Social History Tobacco Use Types Packs/Day Years Used Date Smoking Tobacco: Never Assessed Comments Unknown Sex and Gender Information Value Date Recorded Sex Assigned at Not on file Legal Sex Female 3:29 AM RADIO MESSAGE ROUTER Gender Identity Not on file Sexual Orientation Not on file documented as of this encounter Plan of Treatment Not on file documented as of this encounter Visit Diagnoses Not on filedocumented in this encounter
== END 2024-08-11 07:54 | disposition home or self-care (01) ==
LOC: ANHIMG 07:54
PROVIDERS: PCP Nurse Practitioner; Visit Provider Nurse Practitioner
DX: M81.0 Age-related osteoporosis without current pathological fracture (principal); Z78.0 Asymptomatic menopausal state; Z13.820 Encounter for screening for osteoporosis
CPT/HCPCS: 77080